=== PATIENT | male | born 1960 | race Caucasian/White ===

== ENCOUNTER → 2018-05-26 08:15 | Outpatient (CLI) | payer MEDICAID, SELFPAY ==
[2018-05-26 12:38] LABS: Absolute Lymphocyte Count 1.53 X10^3/ul (0.83-4.51); Absolute Neutrophil Count 5.3 X10^3/uL (2.0-7.7); Basophil# 0.02 X10^3/uL; Basophil% 0.3 % (0-1); Eosinophil# 0.17 X10^3/uL; Eosinophils% 2.2 % (0-5); Hematocrit 43.2 % (40-54); Hemoglobin 14.4 g/dl (13.0-16.5); Lymphocyte # 1.53 X10^3/ul (4.0); Lymphocyte % 20.1 % (19-41); Mean Corp Hgb Conc 33.3 g/gl (32-36); Mean Corpuscular Hgb 28.7 pg (27.0-32.0); Mean Corpuscular Volume 86.2 fL (80-94); Mean Platelet Vol. 11.1 fl (6.2-12.0); Monocyte# 0.57 X10^3/uL; Monocyte% 7.5 % (0-10); Neutrophil # 5.29 X10^3/uL (2.7-7.7); Neutrophil % 69.6 % (47-70); Platelet Count 195 K/mm3 (150-450); RBC Distribution Width CV 14.4 % (11.6-14.6); RBC Distribution Width SD 44.6 fl (35.1-43.9); Red Blood Count 5.01 M/mm3 (4.6-6.2); White Blood Count 7.6 K/mm3 (4.4-11.0)
[2018-05-26 12:40] LABS: POSITIVE COUNT NO; POSITIVE DIFFERENTIAL NO; POSITIVE MORPHOLOGY NO
[2018-05-26 13:17] LABS: ALB/GLOB Ratio 0.9 RATIO (0.9-2.4); AST(SGOT) 25 U/L (15-37); Alanine Aminotransfer ALT/SGPT 47 U/L (16-61); Albumin, Serum 3.7 g/dL (3.2-5.0); Alkaline Phosphatase 74 U/L (45-117); Anion Gap 9 (5-15); BUN 18 mg/dL (7-18); BUN/Creat Ratio 16.1 RATIO (10-20); Calcium,Total 8.5 mg/dL (8.5-10.1); Chloride 104 mmol/L (98-107); Cholesterol 182 mg/dL (200); Creatinine, Serum 1.12 mg/dL (0.70-1.30); EST Glomerular Filtration Rate 72 mL/min (>60); Est Glom Filt Rate - Afr Amer 87 mL/min (>60); Glucose 114 mg/dL (74-106); High Density Lipoprotein 31 mg/dL; Potassium 3.8 mmol/L (3.5-5.1); Protein, Total 7.7 g/dL (6.4-8.2); Sodium Level 139 mmol/L (136-145); Thyroid Stim Hormone (TSH) 2.58 uIU/mL (0.358-3.74); Triglycerides 190 mg/dL; Very Low Density Lipoprotein 38 mg/dL (5-40)
== END ==
PROVIDERS: Family Provider Family Medicine; PCP Family Medicine; Visit Provider Family Medicine
DX: I10 Essential (primary) hypertension (principal); I42.0 Dilated cardiomyopathy; E78.5 Hyperlipidemia, unspecified
CPT/HCPCS: 36415; 80053; 80061; 84443; 85025

== ENCOUNTER → 2019-02-21 | Outpatient (CLI) | payer MEDICAID, SELFPAY ==
[2019-02-21 15:17] VITALS: BMI 44.3
[2019-02-21 18:25] LABS: Anion Gap 7 (5-15); BUN 20 mg/dL (7-18); Calcium,Total 8.8 mg/dL (8.5-10.1); Chloride 105 mmol/L (98-107); Creatinine, Serum 1.05 mg/dL (0.70-1.30); EST Glomerular Filtration Rate 78 mL/min (>60); Est Glom Filt Rate - Afr Amer 94 mL/min (>60); Glucose 114 mg/dL (74-106); Potassium 3.1 mmol/L (3.5-5.1); Sodium Level 138 mmol/L (136-145)
== END | disposition home or self-care (01) ==
LOC: POLAB3 16:15
PROVIDERS: Family Provider Family Medicine; PCP Family Medicine; Visit Provider Physician Assistant Medical
DX: I50.22 Chronic systolic (congestive) heart failure (principal)
CPT/HCPCS: 36415; 80048

== ENCOUNTER → 2019-04-06 | Outpatient (CLI) | payer MEDICAID, SELFPAY ==
[2019-02-21 15:17] VITALS: BMI 44.3
[2019-04-06 13:12] LABS: Anion Gap 7 (5-15); BUN 17 mg/dL (7-18); BUN/Creat Ratio 14.4 RATIO (10-20); Calcium,Total 9.2 mg/dL (8.5-10.1); Chloride 107 mmol/L (98-107); Creatinine, Serum 1.18 mg/dL (0.70-1.30); EST Glomerular Filtration Rate 68 mL/min (>60); Est Glom Filt Rate - Afr Amer 82 mL/min (>60); Glucose 110 mg/dL (74-106); Potassium 4.3 mmol/L (3.5-5.1); Sodium Level 139 mmol/L (136-145)
== END | disposition home or self-care (01) ==
LOC: POLAB3 12:03
PROVIDERS: Physician Assistant Medical; Family Provider Family Medicine; PCP Family Medicine; Visit Provider Internal Medicine Cardiovascular Disease
DX: I42.8 Other cardiomyopathies (principal)
CPT/HCPCS: 36415; 80048

== ENCOUNTER 2020-07-08 13:39 | Emergency (ER) | payer MEDICAID, SELFPAY ==
[2019-11-29 14:34] VITALS: BMI 43.5
[2020-07-08 13:40] VITALS: BP 115/72; PULSE 74; RESP 19; TEMP 37.4; O2SAT 93; BMI 43.2
[2020-07-08 13:43] VITALS: BP 115/72; PULSE 74; RESP 19; TEMP 37.4; O2SAT 93
[2020-07-08 14:05] VITALS: BP 127/67; PULSE 69; RESP 20; O2SAT 92
--- NOTE | 2020-07-08 14:22 | EKG12_ITS ---
Test Reason : FEVER Blood Pressure : / mmHG Vent. Rate : 070 BPM Atrial Rate : 070 BPM P-R Int : 226 ms QRS Dur : 104 ms QT Int : 422 ms P-R-T Axes : 050 -24 -02 degrees QTc Int : 455 ms Sinus rhythm with 1st degree A-V block Low voltage QRS Inferior infarct , age undetermined Abnormal ECG Confirmed by IVETT DYSON, CINDI ([id number]), restaurant expeditor DALIA KIRKPATRICK ([id number]) on 07/11/2020 10:58:23 AM Referred By: ROJELIO Confirmed By:CINDI ROOT MD
--- NOTE | 2020-07-08 14:24 | ED.DCSUM_ITS ---
History of Present Illness Chief Complaint: Fever Informant: Patient Onset: Days - 6 days Context: Gradual Onset Current Severity: Moderate Maximum Severity: Moderate Narrative: Patient presents secondary to fever. He reports starting to not feel well 8 days ago. 6 days ago he developed fever and temperatures have been up to 103. He reports a mild cough with clear sputum. He reports poor appetite and decreased p.o. intake. Patient reports he does work with his daughter who is positive for Covid. Patient is noted to be on the heart transplant list. He denies chest pain and denies significant shortness of breath. - Past Medical History (1) Chronic systolic (congestive) heart failure Status: Chronic (2) Essential hypertension Status: Chronic (3) Nonischemic cardiomyopathy Status: Chronic (4) Obstructive sleep apnea Status: Chronic Past Medical History - Allergies and Home Meds Allergies/Adverse Reactions: Allergies naproxen Adverse Reaction (Severe, Verified 07/08/20 13:44) rectal bleeding codeine Adverse Reaction (Intermediate, Verified 07/08/20 13:44) Anxiety (wired) Primary Care Physician: Stu Richardson MD [Primary Care Provider] - Prior records reviewed: Yes Surgical History: herniorrhaphy, - Lives: Spouse/ Significant Other Smoking Status: Former smoker - Family History Maternal Family History: Family History (Last Reviewed 11/29/19 @ 15:[address] Robson Burgess MD) Father Heart disease Hypertension Bleeding disorder Mother Cancer Family History: Reports: No pertinent history Review of Systems General: Reports: Fever Eyes: Denies: Visual changes - bilaterally ENT: Denies: Bilateral ear pain Cardiovascular: Denies: Chest pain Respiratory: Reports: Cough, Sputum. Denies: Dyspnea Gastrointestinal: Reports: Vomiting - Vomited x1 today. Denies: Abdominal pain, Diarrhea Genitourinary: Denies: Dysuria Musculoskeletal: Denies: Swelling, Extremity Pain Skin: Denies: Rash Neurological: Denies: Headache Hematologic: Denies: Easy bruising, Easy bleeding Allergy: Denies: Uticaria Physical Exam Vital Signs/Narrative: Vital Signs Temp Pulse Resp BP Pulse Ox 07/08/20 14:05 69 20 H 127/67 H 92 07/08/20 13:43 99.4 F H 74 19 H 115/72 93 07/08/20 13:40 99.4 F H 74 19 H 115/72 93 Inital Vital Signs reviewed: Yes General: Well nourished, Well developed Head: Normocephalic ENT: Moist mucous membranes Neck: Supple Cardiovascular: Regular rate, Regular rhythm Respiratory: No distress, CTA bilaterally Abdomen: Soft, Nontender, Normal bowel sounds Extremities: Nontender Skin: Normal color Neurological: Alert, Oriented x3 Psychological: Normal affect Diagnostic/Tx/Re-eval Impressions Chest CTA 07/08/20 16:37 IMPRESSION: Mild patchy ground glass opacities in both lungs. COVID Pneumonia should be excluded. No evidence of pulmonary embolus. No evidence of thoracic aortic aneurysm or dissection. Fatty liver. Electronically Signed: Arvin Titus, at 17:29 EST Tel , Service support , 07/08/20 16:37 CTA Chest W/WO Contrast [CT] Stat Laboratory Results 07/08/20 07/08/20 07/08/20 13:44 13:44 13:44 WBC 4.2 L RBC 5.07 Hgb 14.4 Hct 42.8 MCV 84.4 MCH 28.4 MCHC 33.6 RDW Std Deviation 43.6 RDW Coeff of Kathy 14.3 Plt Count 141 L MPV 11.1 Immature Gran % (Auto) 0.200 Neut % (Auto) 75.2 H Lymph % (Auto) 13.4 L [place] % (Auto) 11.0 H Eos % (Auto) 0.0 Baso % (Auto) 0.2 Absolute Neuts (auto) 3.2 Absolute Lymphs (auto) 0.56 L Nucleated RBC % 0 Differential Comment SCANNED Diff Path Review May foll D-Dimer Quant (PE/DVT) 0.68 H* Sodium 134 L Potassium 3.7 Chloride 102 Carbon Dioxide 27.0 Anion Gap 5 BUN 15 Creatinine 1.22 Estim Creat Clear Calc 73.32 Est GFR (MDRD) Af Amer 79 Est GFR (MDRD) Non-Af 65 BUN/Creatinine Ratio 12.3 Glucose 169 H Lactic Acid Calcium 8.0 L Total Bilirubin 0.40 AST 33 ALT 49 Alkaline Phosphatase 62 Total Protein 7.7 Albumin 3.4 Globulin 4.3 H Albumin/Globulin Ratio 0.8 L COVID-19 (ANTHONY) 07/08/20 07/08/20 13:44 14:42 WBC RBC Hgb Hct MCV MCH MCHC RDW Std Deviation RDW Coeff of Kathy Plt Count MPV Immature Gran % (Auto) Neut % (Auto) Lymph % (Auto) [place] % (Auto) Eos % (Auto) Baso % (Auto) Absolute Neuts (auto) Absolute Lymphs (auto) Nucleated RBC % Differential Comment Diff Path Review D-Dimer Quant (PE/DVT) Sodium Potassium Chloride Carbon Dioxide Anion Gap BUN Creatinine Estim Creat Clear Calc Est GFR (MDRD) Af Amer Est GFR (MDRD) Non-Af BUN/Creatinine Ratio Glucose Lactic Acid 1.0 Calcium Total Bilirubin AST ALT Alkaline Phosphatase Total Protein Albumin Globulin Albumin/Globulin Ratio COVID-19 (ANTHONY) Positive - EKG Initial EKG Interpretation: Sinus Rhythm - Sinus at 70 with first-degree AV block. No acute ischemia. - Medical Decision Making Patient's vital signs been stable here. On review of vital signs from home his pulse ox is been ranging between 88 and 92%. I did discuss with him hospital admission for steroids and remdesivir. He would prefer to go home just with steroids. I am happy to send him home with home oxygen as well. He does have ability to check his vital signs including his pulse ox at home. He is given return instructions. ED Disposition - Plan for ED Patient: Disposition: Home or Assisted Living Diagnosis: COVID-19 Instructions: Coronavirus Disease 2019 (COVID-19) Prescriptions: Dexamethasone 6 mg PO DAILY #9 tab Transmission Status: Pending to [id number] Referrals: Stu Richardson MD [Primary Care Provider] - 1-2 Weeks
[2020-07-08 14:45] LABS: Absolute Lymphocyte Count 0.56 X10^3/uL (0.83-4.51); Absolute Neutrophil Count 3.2 X10^3/uL (2.0-7.7); Basophil# 0.01 X10^3/uL; Basophil% 0.2 % (0-1); Hematocrit 42.8 % (40-54); Hemoglobin 14.4 g/dL (13.0-16.5); Lymphocyte # 0.56 X10^3/ul (4.0); Lymphocyte % 13.4 % (19-41); Mean Corp Hgb Conc 33.6 g/dL (32-36); Mean Corpuscular Hgb 28.4 pg (27.0-32.0); Mean Corpuscular Volume 84.4 fL (80-94); Mean Platelet Vol. 11.1 fl (6.2-12.0); Monocyte# 0.46 X10^3/uL; NRBC Flagged by Analyzer 0 % (0-5); Neutrophil # 3.15 X10^3/uL (2.7-7.7); Neutrophil % 75.2 % (47-70); POSITIVE DIFFERENTIAL YES; Platelet Count 141 K/mm3 (150-450); RBC Distribution Width CV 14.3 % (11.6-14.6); RBC Distribution Width SD 43.6 fl (35.1-43.9); Red Blood Count 5.07 M/mm3 (4.6-6.2); White Blood Count 4.2 K/mm3 (4.4-11.0)
[2020-07-08 14:59] LABS: Differential Indicated SCAN CRITERIA MET
[2020-07-08 15:01] LABS: D-Dimer Quantitative (DVT/PE) 0.68 FEU/ug/m (0.27-0.49)
[2020-07-08 15:05] LABS: ALB/GLOB Ratio 0.8 RATIO (0.9-2.4); AST(SGOT) 33 U/L (15-37); Alanine Aminotransfer ALT/SGPT 49 U/L (16-61); Albumin, Serum 3.4 g/dL (3.2-5.0); Alkaline Phosphatase 62 U/L (45-117); Anion Gap 5 (5-15); BUN 15 mg/dL (7-18); BUN/Creat Ratio 12.3 RATIO (10-20); Chloride 102 mmol/L (98-107); Creatinine, Serum 1.22 mg/dL (0.70-1.30); EST Glomerular Filtration Rate 65 mL/min (>60); Est Glom Filt Rate - Afr Amer 79 mL/min (>60); Estimated Creatinine Clearance 73.32 ml/min; Globulin 4.3 g/dL (2.2-4.2); Glucose 169 mg/dL (74-106); Potassium 3.7 mmol/L (3.5-5.1); Protein, Total 7.7 g/dL (6.4-8.2); Sodium Level 134 mmol/L (136-145)
[2020-07-08 15:17] LABS: Differential Comment SCANNED
[2020-07-08 16:02] VITALS: BP 94/61; PULSE 69; RESP 22; O2SAT 91
--- NOTE | 2020-07-08 16:37 | CT_ITS ---
STUDY: CTA CHEST REASON FOR EXAM: Male, 59 years old. FEVER. PT HAS CHF HTN AND STATES HE NEEDS A HEART TRANSPLANT RADIATION DOSAGE (If Supplied By Facility): CTDIvol = ( 13.85 ) mGy, DLP = ( 536.69 ) mGycm TECHNIQUE: The examination was performed with the intravenous administration of IV 100mL Isovue-370. Post-processing of the angiographic images was performed, with multiplanar reformation and 3D reconstruction. Individualized dose optimization techniques were used for this CT. COMPARISON: 08/01/16 FINDINGS: There are mild patchy ground glass opacities noted in both lungs. There are no focal infiltrates. There are no pleural effusions. There is no pneumothorax. There is no evidence of pulmonary embolus. There is no evidence of thoracic aortic aneurysm or dissection. The heart and pericardium are within normal limits. There is no thoracic lymphadenopathy. Images through the upper abdomen demonstrate fatty infiltration of the liver. There are no destructive osseous lesions. CT/CTA Chest W/WO Contrast IMPRESSION: Mild patchy ground glass opacities in both lungs. COVID Pneumonia should be excluded. No evidence of pulmonary embolus. No evidence of thoracic aortic aneurysm or dissection. Fatty liver. Electronically Signed: Arvin Titus, at 17:29 EST Tel , Service support ,
[2020-07-08] MEDS: dexAMETHasone 10 MG/ML Vial 6 MG IV (18:42)
[2020-07-08 18:45] VITALS: BP 111/65; PULSE 71; RESP 22; O2SAT 96
--- NOTE | 2020-07-08 18:51 | CM.ED ---
Social Work Consult: Home O2 set-up. Informant: Dr. Lin Telephone call to patient. Introduced self and social work program coordinator role. Patient agreeable to speaking with this social work program coordinator. Patient confirms to have spoken with Dr. Lin about having home oxygen set up. Patient with [facility] insurance and agreeable to home oxygen being set up through [employer] [facility] [employer]. Patient educated on oxygen set up process. Patient with no further questions. Patient to call [employer] when patient arrives at home to have oxygen set up in the home. Patient voices understanding. Telephone call to [facility]. Referral made. Order faxed. Medical team updated. Sina Osborne MSW, ESTHER-S
[2020-07-08 19:08] VITALS: BP 105/64; PULSE 84; RESP 22; O2SAT 96
[2020-07-09 12:08] LABS: Pathologist Review Reviewed
--- NOTE | 2020-07-09 13:23 | CASEMGMT ---
YULIA NOGUERA ED COVID CALL ED Visit Date: 07/08/2020 ED Diagnosis: COVID 19 Disposition: Home with Oxygen through [facility] Intro role of CM to patient via phone. Patient states he is doing well and has not needed his oxygen today. He is checking his pulse ox 5x daily. YULIA NOGUERA reviewed symptoms to note including increased shortness of breath or hypoxia. Instructed patient if symptoms increase, or he begins to need more oxygen to let his PCP know. -pt states he is able to eat and drink without difficulty. -Pt has his medication (dexamethasone) and no questions re: administration. YULIA NOGUERA let patient know he would have a follow up call on Tuesday and he is agreeable to this. Pardeep RETANA RN ACM
--- NOTE | 2020-07-11 16:03 | CASEMGMT ---
[facility] ED COVID CALL ED Visit Date: 07/08/2020 ED Diagnosis: COVID 19 Disposition: Home with Oxygen through [facility] Call placed to pt/. Pt spoke w/YULIA NOGUERA briefly, stating, I'm good, I guess, when YULIA NOGUERA asked him how he was feeling, but then asked YULIA NOGUERA to talk with his . Per , pulse ox was down to 76% last night w/O2 @ 2 L/M via n/c and that they increased it to 3 L/M and pulse ox has been mostly b/w 88-89% w/O2 @ 3 L/M. She states her dtr-in-law, who works for Dr Richardson (pt's PCP), notified Dr Richardson last night re: increased in O2 needs. reports that pt is still not drinking well, is starting to have some disorientation/forgetfulness, is becoming unsteady on his feet, and has had increase in fatigue, and still w/occasional nausea. She states she was able to get him to take his medications today. She does report he has voided x 4 today. YULIA NOGUERA recommended to for pt to return to ER d/t increase in symptoms/increase in O2 needs. states has been concerned pt is getting dehydrated and was thinking today that he may need to back to the hospital. states pt is so weak she may not be able to get him to the car and states she may need to call the squad. YULIA NOGUERA advised , for pt and her safety, this may be best. voices appreciation for the follow-up call. La RETANA RN, CM
== END 2020-07-08 19:09 | disposition home or self-care (01) ==
PROVIDERS: Emergency Provider Emergency Medicine; PCP Family Medicine
DX: U07.1 COVID-19 (principal); I11.0 Hypertensive heart disease with heart failure; I50.22 Chronic systolic (congestive) heart failure
CPT/HCPCS: 71275; 80053; 83605; 85025; 85379; 87040; 87077; 87635; 93005; 96374; 99285; Q9967; A4216; U0002

== ENCOUNTER 2020-07-12 12:08 | Inpatient (IN) | payer MEDICAID, SELFPAY ==
[2020-07-12] VITALS (15 sets, daily range): BP systolic 101–145; BP diastolic 48–74; PULSE 74–88; RESP 18–32; TEMP 36.3–38.2; O2SAT 88–95; BMI 42.1; BMI 41.5
--- NOTE | 2020-07-12 12:20 | RAD_ITS ---
STUDY: X-RAY CHEST REASON FOR EXAM: Male, 59 years old. COUGH, SOB TECHNIQUE: AP COMPARISON: 05/02/2016, 07/08/2020 FINDINGS: EKG leads project over the chest. Lungs are underexpanded. Patchy pulmonary infiltrates involving the right more than left upper lobe have progressed since prior CTA chest 07/08/2020 There is no demonstrated pleural abnormality. Normal size heart. Normal mediastinum and zuleika. Normal visualized pulmonary arteries. Normal visualized aortic arch and descending thoracic aorta. Normal visualized thoracic spine. Normal visualized ribs, clavicles, and shoulders. There is no demonstrated abnormality of the visualized soft tissue structures of the upper abdomen. RAD/Chest 1 View (Portable) IMPRESSION: Increasing multilobar (upper lobe dominance) pulmonary infiltrate suggesting pneumonia, including viral causes. Electronically Signed: Samy Paiz MD ([place]) at 13:17 EST , Service support ,
--- NOTE | 2020-07-12 12:22 | ED.DCSUM_ITS ---
- ER Visit Summary Date of Service: 07/12/20 Chief Complaint: Cough and shortness of breath History of Present Illness: The patient is a [address] Stu Burgess. He reports he has a cough and shortness of breath began 4 days ago. He states that his daughter has Covid. He tested positive for Covid on July 08 by rapid antigen. Ports that his shortness of breath is increased over the past 2 days. Is much worse when he ambulates. He is currently on dexamethasone 2 L of home O2. Patient reports he has had a fever to 101 degrees. He actually reports his cough seems to be improving. Is productive of clear sputum. He complains of generalized weakness. He denies any other complaints. Physical Examination: Vitals: 97.4, 116/70, 74, 27, 95% on a nonrebreather, 93% on 4 L nasal cannula at rest. General: Well-nourished and well-developed. Head: Normocephalic atraumatic. Neck: Supple, no lymphadenopathy. No JVD. Nontender. Cardiovascular: Regular rate and rhythm. No murmurs. Respiratory: No respiratory distress. Clear to auscultation bilaterally. Abdominal: Soft, nontender, nondistended, normal bowel sounds. No guarding, rebound, or peritoneal signs. Back: Nontender. Extremities: Nontender, no edema. Skin: Normal color, no rash. Neurologic: Alert and oriented ?3. Cranial nerves II through XII are intact. Normal strength and sensation. Psych: Normal affect. Test Results: CBC shows segmented flows 86 and lymphocytes 7. Chem-7 shows a sodium 133, chloride 97, BUN 23, glucose 159, calcium of 8.4. D-dimer is 1.0. Fibrinogen is 789. CRP is 82.9. LDH is 39.8. Procalcitonin 0.13. Clinical Impression(s) from Imaging Studies Chest X-Ray 07/12/20 12:20 IMPRESSION: Increasing multilobar (upper lobe dominance) pulmonary infiltrate suggesting pneumonia, including viral causes. Electronically Signed: Samy Paiz MD ([place]) at 13:17 EST , Service support , Chest CTA 11/28/20 13:54 IMPRESSION: Patchy bilateral groundglass densities and and airspace disease likely multilevel pneumonia. Enlarged right hilar lymph node. No evidence for acute pulmonary embolism or aortic dissection. Electronically Signed: Nash Aguilar, at 14:27 EST Tel , Service support , Emergency Department Course and Treatment: Patient had an IV placed. His pulse ox is remained at 93% on 4 L. He is resting comfortably. Treatment Plan: Patient will be discussed with the hospitalist admitted for further evaluation and treatment. Disposition: Admitted in serious condition. Impression: 1. COVID-19 infection. 2. Hypoxia. This note was generated with [employer] dictation software. It may contain incorrect words, spelling, and punctuation that were not noted in review of the chart prior to signing ED Disposition - Plan for ED Patient: Referrals: Stu Richardson MD [Primary Care Provider] -
[2020-07-12 12:37] LABS: Absolute Lymphocyte Count 0.59 X10^3/uL (0.83-4.51); Absolute Neutrophil Count 7.4 X10^3/uL (2.0-7.7); Basophil# 0.01 X10^3/uL; Basophil% 0.1 % (0-1); Hematocrit 42.5 % (40-54); Hemoglobin 14.2 g/dL (13.0-16.5); Lymphocyte # 0.59 X10^3/ul (4.0); Lymphocyte % 6.9 % (19-41); Mean Corp Hgb Conc 33.4 g/dL (32-36); Mean Corpuscular Hgb 28.7 pg (27.0-32.0); Monocyte# 0.55 X10^3/uL; Monocyte% 6.4 % (0-10); NRBC Flagged by Analyzer 0 % (0-5); Neutrophil # 7.38 X10^3/uL (2.7-7.7); POSITIVE DIFFERENTIAL YES; Platelet Count 181 K/mm3 (150-450); RBC Distribution Width CV 14.3 % (11.6-14.6); RBC Distribution Width SD 44.6 fl (35.1-43.9); Red Blood Count 4.94 M/mm3 (4.6-6.2); White Blood Count 8.6 K/mm3 (4.4-11.0)
[2020-07-12 12:38] LABS: Differential Indicated SCAN CRITERIA MET
[2020-07-12 12:41] LABS: Fibrinogen 789 mg/dl (203-444)
[2020-07-12 12:59] LABS: ALB/GLOB Ratio 0.8 RATIO (0.9-2.4); AST(SGOT) 35 U/L (15-37); Alanine Aminotransfer ALT/SGPT 41 U/L (16-61); Albumin, Serum 3.3 g/dL (3.2-5.0); Alkaline Phosphatase 56 U/L (45-117); Anion Gap 10 (5-15); BUN 23 mg/dL (7-18); BUN/Creat Ratio 19.7 RATIO (10-20); CPK Total, Creatine Kinase 115 U/L (39-308); Calcium,Total 8.4 mg/dL (8.5-10.1); Chloride 97 mmol/L (98-107); Creatinine, Serum 1.17 mg/dL (0.70-1.30); EST Glomerular Filtration Rate 68 mL/min (>60); Est Glom Filt Rate - Afr Amer 83 mL/min (>60); Estimated Creatinine Clearance 76.46 ml/min; Glucose 159 mg/dL (74-106); LDH 398 U/L (87-241); Potassium 4.1 mmol/L (3.5-5.1); Protein, Total 7.3 g/dL (6.4-8.2); Sodium Level 133 mmol/L (136-145)
[2020-07-12 13:10] LABS: Procalcitonin 0.13 ng/mL (0.00-0.09)
[2020-07-12 13:24] LABS: Lactic Acid 1.4 mmol/L (0.4-1.9)
--- NOTE | 2020-07-12 13:54 | CT_ITS ---
STUDY: CTA CHEST REASON FOR EXAM: Male, 59 years old. +COVID ON TUESDAY. HAVING INCREASE SOB AND WEAKNESS. HX OF CHF AND HTN. PT STATES HE NEEDS A HEART TRANSPLANT RADIATION DOSAGE (If Supplied By Facility): CTDIvol = ( 15.04 ) mGy, DLP = ( 583.39 ) mGycm TECHNIQUE: The examination was performed with the intravenous administration of IV 100mL Isovue-370. Post-processing of the angiographic images was performed, with multiplanar reformation and 3D reconstruction. Individualized dose optimization techniques were used for this CT. COMPARISON: None. FINDINGS: Pulmonary artery and its branches demonstrate no evidence for filling defects to suggest acute pulmonary embolism. A few prominent caliber mediastinal lymph nodes seen. Prominent right hilar lymph node also seen. No pneumothorax or pleural effusion Upper abdominal structures demonstrate no acute abnormalities. No pericardial effusion. Hepatic steatosis. CT/CTA Chest W/WO Contrast IMPRESSION: Patchy bilateral groundglass densities and and airspace disease likely multilevel pneumonia. Enlarged right hilar lymph node. No evidence for acute pulmonary embolism or aortic dissection. Electronically Signed: Nash Aguilar, at 14:27 EST Tel , Service support ,
[2020-07-12] MEDS: Ondansetron 4 MG/2 ML Vial IV (13:58)
--- NOTE | 2020-07-12 14:51 | NURSING ---
DR MUSE FOR DR LEMON
--- NOTE | 2020-07-12 14:55 | NURSING ---
MS2 COVID PAINTSIL COVID 19, HYPOXIA
--- NOTE | 2020-07-12 14:57 | HP.PCM_ITS ---
Problem List (1) COVID-19 virus infection Status: Acute (2) Hypoxia Status: Acute (3) Nonischemic cardiomyopathy Status: Chronic (4) Chronic systolic (congestive) heart failure Status: Chronic (5) Essential hypertension Status: Chronic (6) Morbid obesity due to excess calories Status: Chronic (7) Obstructive sleep apnea Status: Chronic History of Present Illness Date of Admission: 07/12/20 Chief Complaint: Progressive shortness of breath -2 days The patient is a 59 year old M with past medical history of chronic systolic CHF, hypertension, morbid obesity, GONZALO on CPAP who comes in with progressive shortness of breath as started 2 weeks ago. His daughter also tested positive for Covid. He stated that 2 weeks ago, he felt generalized body aches, started having persistent fever. He started having shortness of breath and presented to the ED 06/16/20. Patient stated that he lost his sense of smell years ago. He cannot tell if his loss of sense of taste. At that time, his pulse ox was 88 to 92%. Chest x-ray showed groundglass opacities. Patient was offered to be admitted. He preferred to go home. He was sent home on dexamethasone and oxygen. In the emergency room, his vitals show temperature 97.4 F, heart rate of 74, respiratory rate was 27, blood pressure 116/70, SPO2 was 95% on 15 L of oxygen. His WBC count 8.6, hemoglobin 14.2, platelet count 181, fibrinogen 789, D-dimer 1.0, sodium 133, potassium 4.1, chloride 97, bicarbonate 26, BUN 20, creatinine 1.17, glucose 137, lactic acid 1.4, LDH 398, CRP 82.9, procalcitonin 0.13 Chest x-ray showed increasing multilobular pulmonary infiltrates. CTA of the chest showed patchy bilateral ground glass densities. Negative for acute PE Past Medical History Past Medical History (Chronic Problems): Chronic Problems (Last Reviewed 11/29/19 @ 15:[address] Robson Burgess MD) Nonischemic cardiomyopathy (Chronic) Chronic systolic (congestive) heart failure (Chronic) Essential hypertension (Chronic) Morbid obesity due to excess calories (Chronic) Obstructive sleep apnea (Chronic) Medical History: Medical History (Last Reviewed 11/29/19 @ 15:[address] Robson Burgess MD) Nonischemic cardiomyopathy (Chronic) I42.8 Chronic systolic (congestive) heart failure (Chronic) I50.22 Essential hypertension (Chronic) I10 Morbid obesity due to excess calories (Chronic) E66.01 Obstructive sleep apnea (Chronic) G47.33 GERD (gastroesophageal reflux disease) K21.9 Acute systolic heart failure (Resolved) I50.21 Dyspnea (Inactive) R06.00 Nonrheumatic mitral valve regurgitation (Inactive) I34.0 Nonrheumatic tricuspid valve regurgitation (Inactive) I36.1 Patent foramen ovale (Inactive) Q21.1 Allergies naproxen Adverse Reaction (Severe, Verified 07/12/20 12:16) rectal bleeding codeine Adverse Reaction (Intermediate, Verified 07/12/20 12:16) Anxiety (wired) Home Medications: Ambulatory Orders Medication Instructions Recorded Loratadine [Claritin] 10 mg PO DAILY 07/02/16 acetaminophen 500 mg tablet See Rx Instructions PO BID PRN tab 10/06/17 multivitamin 1 tab PO QDAY 10/07/17 fluticasone propionate 50 1 spray INTRANASAL BID PRN 11/29/19 mcg/actuation nasal spray,suspension lisinopril 5 mg tablet 5 mg PO QDAY #90 tab 11/29/19 metoprolol succinate 200 mg 200 mg PO DAILY #90 tab 11/29/19 tablet,extended release 24 hr omeprazole 20 mg capsule,delayed 20 mg PO DAILY #90 cap 11/29/19 release potassium chloride 20 mEq 20 meq PO BID #180 tab 11/29/19 tablet,extended release spironolactone 25 mg tablet 12.5 mg PO DAILY #45 tab 11/29/19 Dexamethasone 6 mg PO DAILY #9 tab 07/08/20 Furosemide [Lasix] 80 mg PO DAILY 07/08/20 Surgical History: Surgical History (Last Reviewed 11/29/19 @ 15:[address] Robson Burgess MD) History of right and left heart catheterization Onset Date: 05/05/16 Z98.890 History of right inguinal hernia repair Z98.890, Z87.19 Surgical History: herniorrhaphy, - - Status post right and left heart cath. Status post Left great toe distal phalange amputation Psychiatric History: No pertinent psych hx Lives: Spouse/ Significant Other Smoking Status: Former smoker Tobacco Use: Non-smoker Alcohol: None Drugs: None - *Family History Maternal Family History: Family History (Last Reviewed 11/29/19 @ 15:[address] Robson Burgess MD) Father Heart disease Hypertension Bleeding disorder Mother Cancer History Items: Cancer - Lung Paternal Family History: Family History (Last Reviewed 11/29/19 @ 15:[address] Robson Burgess MD) Father Heart disease Hypertension Bleeding disorder Mother Cancer History Items: Heart Disease Review of Systems Constitutional: Reports: Anorexia, Night Sweats, Malaise, Fatigue. Denies: Chills, Fever, Weight Change Eyes: Denies: Blurred vision, Cataracts, Conjunctivae Inflammation, Pain, Redness HEENT: Denies: Difficulty Hearing, Difficulty Swallowing, Head Aches, Hearing Changes, Sinus Congestion, Sinus Drainage Cardiovascular: Denies: Chest Pain, Claudication, Orthopnea, Palpitations Respiratory: Reports: Cough, Shortness of Breath, Shortness of breath at rest, Shortness of breath upon exertion, Sputum production Gastrointestinal: Denies: Abdominal Pain, Hematemesis, Hematochezia, Nausea, Vomiting Genitourinary: Denies: Dysuria, Frequency, Incontinence, Nocturia Musculoskeletal: Denies: Joint Pain, Joint stiffness, Joint swelling, Joint Tenderness Skin: Denies: Pruritis, Rash, Wounds Neurological: Denies: Difficulty swallowing, Focal weakness, Numbness, Tingling Psychiatric: Denies: Anxiety, Depression, Homicidal Ideations, Suicidal Ideations Hematologic/ Lymphatic: Denies: Easy Bruising, Easy Bleeding VTE Information - Inpt Only VTE Present on Admission: No VTE Pharm Prophylaxis ordered?: Yes Patient Problems: Active and Suspected Problems (Last Reviewed 11/29/19 @ 15:[address] Robson Burgess MD) COVID-19 virus infection (Acute) Hypoxia (Acute) - Physical Exam Vitals/I&O's: Vital Signs Temp Pulse Resp BP Pulse Ox 98.4 F 78 29 H 101/48 L 95 07/12/20 14:00 07/12/20 14:00 07/12/20 14:00 07/12/20 14:00 07/12/20 14:00 Oxygen Flow Rate (L/min) 4 Oxygen Delivery Method Nasal Cannula Weight: 140.9 kg Body Mass Index (BMI) 42.1 General: Alert, Oriented x3, Cooperative, - - Appears unwell, on 4 L of oxygen HEENT: Atraumatic, PERRLA, EOMI, Normocephalic Oral: Dry Mucosa Neck: Supple Lungs: Diminished Cardiovascular: Regular rate, Regular Rhythm, Normal S1, Normal S2, No murmurs Abdomen: Bowel Sounds Present, Soft, Non Tender, Non-Distended, No Hepato- splenomegaly Extremities: No edema, - - Left great toe distal phalange stump Skin: No rashes Musculoskeletal: No Tenderness to Palpation of Joints or Extremities Lymphatic: No Cervical, Supraclavicular, or Inguinal Adenopathy Neurological: Cranial nerves II-XII grossly intact, Neuro grossly intact Psych/Mental Status: Normal Affect, Appropriate Laboratory Results 07/12/20 12:15: WBC 8.6, RBC 4.94, Hgb 14.2, Hct 42.5, MCV 86.0, MCH 28.7, MCHC 33.4, RDW Std Deviation 44.6 H, RDW Coeff of Kathy 14.3, Plt Count 181, MPV 11.0, Immature Gran % (Auto) 0.600, Neut % (Auto) 86.0 H, Lymph % (Auto) 6.9 L, [place] % (Auto) 6.4, Eos % (Auto) 0.0, Baso % (Auto) 0.1, Absolute Neuts (auto) 7.4, Absolute Lymphs (auto) 0.59 L, Nucleated RBC % 0 07/12/20 12:15: Fibrinogen 789 H, D-Dimer Quant (PE/DVT) 1.00 H* 07/12/20 12:15: Sodium 133 L, Potassium 4.1, Chloride 97 L, Carbon Dioxide 26.0, Anion Gap 10, BUN 23 H, Creatinine 1.17, Estim Creat Clear Calc 76.46, Est GFR (MDRD) Af Amer 83, Est GFR (MDRD) Non-Af 68, BUN/Creatinine Ratio 19.7, Glucose 159 H, Calcium 8.4 L, Total Bilirubin 0.60, AST 35, ALT 41, Alkaline Phosphatase 56, Lactate Dehydrogenase 398 H, Total Creatine Kinase 115, C-React Prot Ext Range 82.90 H, Total Protein 7.3, Albumin 3.3, Globulin 4.0, Albumin/Globulin Ratio 0.8 L 07/12/20 12:15: Procalcitonin 0.13 H 07/12/20 12:35: Lactic Acid 1.4 Assessment/Plan All Active Problems (Last Reviewed 11/29/19 @ 15:[address] Robsno Burgess MD) COVID-19 virus infection (Acute) Hypoxia (Acute) Acute systolic heart failure (Resolved) 1. Acute hypoxic respiratory sufficient secondary to acute COVID-19 pneumonia Currently is on 7 L of oxygen. Continue with breathing treatments, PO steroids, encourage use of incentive spirometer. Wean off oxygen for SPO2 more than 94% 2. Acute COVID-19 pneumonia with hypoxia Elevated D-dimer and COVID-19 Continue on dexamethasone, start remdesivir Pulmonology consult 3. GONZAOL on CPAP 4. CKD stage III, creatinine at baseline, repeat blood work in a.m. 5. Hypertension, controlled, would hold lisinopril for now, continue metoprolol 6. Chronic systolic CHF/ischemic cardiomyopathy, EF 35-40% (2019) Will hold lasix and lisinopril Will continue to monitor. 7. Morbid obesity, BMI 41.5, modification recommended 8. DVT PPx- Lovenox SC BID Inpatient E&M: 56542 Init Hosp L3
[2020-07-12] MEDS: dexAMETHasone 10 MG/ML Vial 6 MG IV (15:15)
[2020-07-12] MEDS: 0.9% Normal Saline 1,000 ML 50 ML IV (18:45)
[2020-07-12] MEDS: Ipratropium/Albuterol Sulfate 3 ML AMPUL.NEB INHALATION (19:32)
[2020-07-12] MEDS: Enoxaparin 40 MG/0.4 ML Syringe SC (20:32)
--- NOTE | 2020-07-12 22:08 | CPS ---
pt placed on Home bipap Unit with 12 lpm O2 bleed in
[2020-07-12] MEDS: Acetaminophen 325 MG Tablet 650 MG PO (22:46)
[2020-07-13] VITALS (24 sets, daily range): BP systolic 99–142; BP diastolic 43–79; PULSE 50–92; RESP 12–28; TEMP 36.1–37.8; O2SAT 88–97
[2020-07-13 06:55] LABS: Absolute Lymphocyte Count 0.63 X10^3/uL (0.83-4.51); Absolute Neutrophil Count 6.3 X10^3/uL (2.0-7.7); Basophil# 0.01 X10^3/uL; Basophil% 0.1 % (0-1); Hematocrit 39.7 % (40-54); Lymphocyte # 0.63 X10^3/ul (4.0); Lymphocyte % 8.7 % (19-41); Mean Corp Hgb Conc 32.7 g/dL (32-36); Mean Corpuscular Hgb 27.6 pg (27.0-32.0); Mean Corpuscular Volume 84.3 fL (80-94); Mean Platelet Vol. 10.3 fl (6.2-12.0); Monocyte% 4.1 % (0-10); NRBC Flagged by Analyzer 0 % (0-5); Neutrophil # 6.26 X10^3/uL (2.7-7.7); Neutrophil % 86.7 % (47-70); Platelet Count 184 K/mm3 (150-450); RBC Distribution Width CV 14.1 % (11.6-14.6); RBC Distribution Width SD 43.5 fl (35.1-43.9); Red Blood Count 4.71 M/mm3 (4.6-6.2); White Blood Count 7.2 K/mm3 (4.4-11.0)
[2020-07-13 07:19] LABS: ALB/GLOB Ratio 0.6 RATIO (0.9-2.4); AST(SGOT) 34 U/L (15-37); Alanine Aminotransfer ALT/SGPT 34 U/L (16-61); Albumin, Serum 2.7 g/dL (3.2-5.0); Alkaline Phosphatase 49 U/L (45-117); Anion Gap 6 (5-15); BUN 16 mg/dL (7-18); BUN/Creat Ratio 17.2 RATIO (10-20); Calcium,Total 8.5 mg/dL (8.5-10.1); Chloride 100 mmol/L (98-107); Creatinine, Serum 0.93 mg/dL (0.70-1.30); EST Glomerular Filtration Rate 89 mL/min (>60); Est Glom Filt Rate - Afr Amer 107 mL/min (>60); Estimated Creatinine Clearance 96.19 ml/min; Globulin 4.6 g/dL (2.2-4.2); Glucose 134 mg/dL (74-106); Protein, Total 7.3 g/dL (6.4-8.2); Sodium Level 132 mmol/L (136-145)
[2020-07-13] MEDS: Ipratropium/Albuterol Sulfate 3 ML AMPUL.NEB INHALATION ×4 (07:31→20:20)
--- NOTE | 2020-07-13 07:35 | PCM.PN.HOSP ---
Patient Problems: Active and Suspected Problems (Last Reviewed 11/29/19 @ 15:[address] Robson Burgess MD) COVID-19 virus infection (Acute) Hypoxia (Acute) Reason for Visit: Follow-up on hypoxia/Acute COVID-19 pneumonia Subjective: Patient was seen and examined. Denies any chest pain, fever or chills. His respiratory status has gone worse, on increased amounts of oxygen. Objective: Physical exam: General: Alert, Oriented x3, Cooperative, - - Appears unwell, on Bipap HEENT: Atraumatic, PERRLA, EOMI, Normocephalic Oral: Dry Mucosa Neck: Supple Lungs: Diminished Cardiovascular: Regular rate, Regular Rhythm, Normal S1, Normal S2, No murmurs Abdomen: Bowel Sounds Present, Soft, Non Tender, Non-Distended, No Hepato-splenomegaly Extremities: No edema, - - Left great toe distal phalange stump Skin: No rashes Musculoskeletal: No Tenderness to Palpation of Joints or Extremities Lymphatic: No Cervical, Supraclavicular, or Inguinal Adenopathy Neurological: Cranial nerves II-XII grossly intact, Neuro grossly intact Psych/Mental Status: Normal Affect, Appropriate Vitals/I&O's: Vital Signs Temp Pulse Resp BP Pulse Ox 100.0 F H 72 20 H 142/66 H 95 07/13/20 03:18 07/13/20 03:18 07/13/20 03:18 07/13/20 03:18 07/13/20 03:18 Oxygen Flow Rate (L/min) 12 Oxygen Delivery Method CPAP Weight: 138.6 kg Body Mass Index (BMI) 41.5 Intake and Output for Last 24 Hours 07/11/20 07/12/20 07/13/20 23:59 23:59 23:59 Intake Total 850 / 850 Output Total 800 / 800 Balance 850 / 450 -800 / -800 Laboratory Results 07/12/20 12:15: WBC 8.6, RBC 4.94, Hgb 14.2, Hct 42.5, MCV 86.0, MCH 28.7, MCHC 33.4, RDW Std Deviation 44.6 H, RDW Coeff of Kathy 14.3, Plt Count 181, MPV 11.0, Immature Gran % (Auto) 0.600, Neut % (Auto) 86.0 H, Lymph % (Auto) 6.9 L, [place] % (Auto) 6.4, Eos % (Auto) 0.0, Baso % (Auto) 0.1, Absolute Neuts (auto) 7.4, Absolute Lymphs (auto) 0.59 L, Nucleated RBC % 0 07/12/20 12:15: Fibrinogen 789 H, D-Dimer Quant (PE/DVT) 1.00 H* 07/12/20 12:15: Sodium 133 L, Potassium 4.1, Chloride 97 L, Carbon Dioxide 26.0, Anion Gap 10, BUN 23 H, Creatinine 1.17, Estim Creat Clear Calc 76.46, Est GFR (MDRD) Af Amer 83, Est GFR (MDRD) Non-Af 68, BUN/Creatinine Ratio 19.7, Glucose 159 H, Calcium 8.4 L, Total Bilirubin 0.60, AST 35, ALT 41, Alkaline Phosphatase 56, Lactate Dehydrogenase 398 H, Total Creatine Kinase 115, C-React Prot Ext Range 82.90 H, Total Protein 7.3, Albumin 3.3, Globulin 4.0, Albumin/Globulin Ratio 0.8 L 07/12/20 12:15: Procalcitonin 0.13 H 07/12/20 12:35: Lactic Acid 1.4 07/13/20 06:28: WBC 7.2, RBC 4.71, Hgb 13.0, Hct 39.7 L, MCV 84.3, MCH 27.6, MCHC 32.7, RDW Std Deviation 43.5, RDW Coeff of Kathy 14.1, Plt Count 184, MPV 10.3, Immature Gran % (Auto) 0.400, Neut % (Auto) 86.7 H, Lymph % (Auto) 8.7 L, [place] % (Auto) 4.1, Eos % (Auto) 0.0, Baso % (Auto) 0.1, Absolute Neuts (auto) 6.3, Absolute Lymphs (auto) 0.63 L, Nucleated RBC % 0 07/13/20 06:28: Sodium 132 L, Potassium 4.0, Chloride 100, Carbon Dioxide 26.0, Anion Gap 6, BUN 16, Creatinine 0.93, Estim Creat Clear Calc 96.19, Est GFR (MDRD) Af Amer 107, Est GFR (MDRD) Non-Af 89, BUN/Creatinine Ratio 17.2, Glucose 134 H, Calcium 8.5, Total Bilirubin 0.60, AST 34, ALT 34, Alkaline Phosphatase 49, Total Protein 7.3, Albumin 2.7 L, Globulin 4.6 H, Albumin/Globulin Ratio 0.6 L Current Medications Acetaminophen (Acetaminophen 325 Mg Tablet) 650 mg PO Q6H PRN PRN PRN Reason: Pain Score 1-10/Temp > 100.7 F Last Admin: 07/12/20 22:46 Dose: 650 mg Documented by: Al Hydroxide/Mg Hydroxide (Mag Hydrox/Al Hydrox/Simeth 30 Ml Udc) 30 ml PO Q6H PRN PRN PRN Reason: Gastric Burning Albuterol Sulfate (Albuterol 2.5 Mg/3 Ml Vial.Neb.) 2.5 mg INHALATION Q2H PRN PRN PRN Reason: Shortness of Breath/Wheezing Albuterol/Ipratropium (Ipratropium/Albuterol Sulfate 3 Ml Ampul.Neb) 3 ml INHALATION Q4HWA.RT [facility] Last Admin: 07/13/20 07:31 Dose: 3 ml Documented by: Dexamethasone (Dexamethasone 4 Mg Tablet) 6 mg PO DAILY [facility] Enoxaparin Sodium (Enoxaparin 40 Mg/0.4 Ml Syringe) 40 mg SC BID [facility] Last Admin: 07/12/20 20:32 Dose: 40 mg Documented by: Remdesivir 100 mg/ Sodium (Chloride) 250 mls @ 125 mls/hr IV DAILY [facility] Stop: 07/16/20 11:59 Sodium Chloride () 1,000 mls @ 50 mls/hr IV .Q20H [facility] Last Admin: 07/12/20 18:45 Dose: 50 mls/hr Documented by: Influenza Virus Vaccine Quadrival (Influenza Vaccine (6mos+)/Pf 0.5 Ml Syringe) 0.5 ml IM .ONCE ONE Stop: 07/13/20 10:01 Loratadine (Loratadine 10 Mg Tablet) 10 mg PO DAILY [facility] Metoprolol Succinate (Metoprolol(Xl)Succ 200 Mg Tablet) 200 mg PO DAILY [facility] Multivitamins (Multivitamins,Therapeutic Tablet) 1 tablet PO DAILY [facility] Ondansetron HCl (Ondansetron 4 Mg/2 Ml Vial) 4 mg IV Q8H PRN PRN PRN Reason: NAUSEA/VOMITING Pantoprazole Sodium (Pantoprazole Sodium 20 Mg Tablet) 20 mg PO DAILY [facility] Potassium Chloride (Potassium Chloride 20 Meq Tablet) 20 meq PO BID@1000,1700 [facility] Last Admin: 07/12/20 17:12 Dose: 20 meq Documented by: Psyllium Hydrophilic Mucilloid (Psyllium 1 Packet) 1 packet PO DAILY PRN PRN PRN Reason: Constipation Senna/Docusate Sodium (Senna/Docusate Sodium 1 Tablet) 2 tablet PO BID PRN PRN PRN Reason: Constipation Sodium Chloride (0.9% Saline Lock 10 Ml Syringe) 10 - 40 ml IV UD PRN PRN Reason: SALINE FLUSH Medical Necessity - Tobacco Use Smoking Status: Former smoker Tobacco Use: Non-smoker Assessment/Plan All Active Problems (Last Reviewed 11/29/19 @ 15:[address] Robson Burgess MD) COVID-19 virus infection (Acute) Hypoxia (Acute) Acute systolic heart failure (Resolved) 1. Acute hypoxic respiratory sufficient secondary to acute COVID-19 pneumonia Currently on Bipap. Continue with breathing treatments, PO steroids, encourage use of incentive spirometer. Wean off oxygen for SPO2 more than 94% 2. Acute COVID-19 pneumonia with hypoxia Elevated D-dimer and COVID-19 Continue on dexamethasone, start remdesivir Pulmonology consulted 3. GONZALO on CPAP 4. CKD stage III, creatinine at baseline, repeat blood work in a.m. 5. Hypertension, controlled, would hold lisinopril for now, continue metoprolol 6. Chronic systolic CHF/ischemic cardiomyopathy, EF 35-40% (2019) Will hold lasix and lisinopril Will continue to monitor. 7. Morbid obesity, BMI 41.5, lifestyle modification recommended 8. DVT PPx- Lovenox SC BID Inpatient E&M: [id number] [facility] Hosp L3
[2020-07-13] MEDS: Multivitamins,Therapeutic Tablet 1 TABLET PO (10:20)
[2020-07-13] MEDS: Pantoprazole Sodium 20 MG Tablet PO (10:20)
[2020-07-13] MEDS: dexAMETHasone 4 MG Tablet 6 MG PO (10:20)
[2020-07-13] MEDS: Loratadine 10 MG Tablet PO (10:20)
[2020-07-13] MEDS: Metoprolol(XL)Succ 200 MG Tablet PO (10:20)
[2020-07-13] MEDS: Enoxaparin 40 MG/0.4 ML Syringe SC ×2 (10:20→20:01)
--- NOTE | 2020-07-13 10:42 | NURSING ---
RT placed patient on Airvo at 60L 75% fi02. Patient's pulse ox 93%. Continuous pulse ox placed as a nursing measure to monitor remotely.
--- NOTE | 2020-07-13 11:34 | PCM.CONS.PUL ---
Problem List (1) COVID-19 virus infection Status: Acute (2) Hypoxia Status: Acute (3) Nonischemic cardiomyopathy Status: Chronic (4) Chronic systolic (congestive) heart failure Status: Chronic (5) Essential hypertension Status: Chronic (6) Morbid obesity due to excess calories Status: Chronic (7) Obstructive sleep apnea Status: Chronic Reason for Consult Date of Consultation: 07/13/20 Reason for Consultation: Hypoxic respiratory failure History of Present Illness: The patient is a 59 year old M, with past medical history listed below, who presented [facility] on 07/04/2020 secondary to a 2-week history of cough and shortness of breath. Patient states his symptoms initially started with fever and GI complaints 2 weeks ago. 4 days ago, patient developed cough and shortness of breath. Patient was tested on July 08 and found to be positive. Patient does state that his daughter recently tested positive. On presentation, patient was noted to be 93% on 4 L nasal cannula at rest. Laboratory work-up was relatively unremarkable except for an elevated CRP at 83 and pro calcitonin of 0.13. Renal function was within normal limits. Chest x-ray had shown increasing upper lobe infiltrates and this was confirmed with a CTA of the chest showing enlarged lymphadenopathy and bilateral groundglass opacities. Patient was admitted to the floor for further evaluation. Patient has been initiated on remdesivir and dexamethasone. On my arrival, patient was being transitioned to Airvo secondary to hypoxia on high flow nasal cannula. Patient was reporting cough and generalized body aches. Patient also reported mild chest pain. This was not associated with diaphoresis or radiation. No hemoptysis have been reported. Patient does report a [id number] smoking history, but is never been seen by diving judge or use an inhaler. Patient does follow with Dr. Burgess for congestive heart failure, but believes she was well controlled prior to onset of this acute illness. Patient is not reporting significant lower extremity edema. Patient does not recall conversation about convalescent serum. Review of systems otherwise negative from a constitutional, HEENT, respiratory, cardiovascular, GI, genitourinary, musculoskeletal, skin, neurologic, psychiatric and hematologic system unless stated above. Past Medical History Past Medical History (Chronic Problems): Chronic Problems (Last Reviewed 11/29/19 @ 15:[address] Robson Burgess MD) Nonischemic cardiomyopathy (Chronic) Chronic systolic (congestive) heart failure (Chronic) Essential hypertension (Chronic) Morbid obesity due to excess calories (Chronic) Obstructive sleep apnea (Chronic) Medical History: Medical History (Last Reviewed 11/29/19 @ 15:[address] Robson Burgess MD) Nonischemic cardiomyopathy (Chronic) I42.8 Chronic systolic (congestive) heart failure (Chronic) I50.22 Essential hypertension (Chronic) I10 Morbid obesity due to excess calories (Chronic) E66.01 Obstructive sleep apnea (Chronic) G47.33 GERD (gastroesophageal reflux disease) K21.9 Acute systolic heart failure (Resolved) I50.21 Dyspnea (Inactive) R06.00 Nonrheumatic mitral valve regurgitation (Inactive) I34.0 Nonrheumatic tricuspid valve regurgitation (Inactive) I36.1 Patent foramen ovale (Inactive) Q21.1 Allergies naproxen Adverse Reaction (Severe, Verified 07/12/20 12:16) rectal bleeding codeine Adverse Reaction (Intermediate, Verified 07/12/20 12:16) Anxiety (wired) Home Medications: Ambulatory Orders Medication Instructions Recorded Loratadine [Claritin] 10 mg PO DAILY 07/02/16 acetaminophen 500 mg tablet See Rx Instructions PO BID PRN tab 10/06/17 multivitamin 1 tab PO QDAY 10/07/17 fluticasone propionate 50 1 spray INTRANASAL BID PRN 11/29/19 mcg/actuation nasal spray,suspension lisinopril 5 mg tablet 5 mg PO QDAY #90 tab 11/29/19 metoprolol succinate 200 mg 200 mg PO DAILY #90 tab 11/29/19 tablet,extended release 24 hr omeprazole 20 mg capsule,delayed 20 mg PO DAILY #90 cap 11/29/19 release potassium chloride 20 mEq 20 meq PO BID #180 tab 11/29/19 tablet,extended release spironolactone 25 mg tablet 12.5 mg PO DAILY #45 tab 11/29/19 Dexamethasone 6 mg PO DAILY #9 tab 07/08/20 Furosemide [Lasix] 80 mg PO DAILY 07/08/20 Surgical History: Surgical History (Last Reviewed 11/29/19 @ 15:[address] Robson Burgess MD) History of right and left heart catheterization Onset Date: 05/05/16 Z98.890 History of right inguinal hernia repair Z98.890, Z87.19 Surgical History: herniorrhaphy, - - Status post right and left heart cath. Status post Left great toe distal phalange amputation Psychiatric History: No pertinent psych hx Lives: Spouse/ Significant Other Smoking Status: Former smoker Tobacco Use: Non-smoker Alcohol: None Drugs: None - *Family History Maternal Family History: Family History (Last Reviewed 11/29/19 @ 15:[address] Robson Burgess MD) Father Heart disease Hypertension Bleeding disorder Mother Cancer History Items: Cancer - Lung Paternal Family History: Family History (Last Reviewed 11/29/19 @ 15:[address] Robson Burgess MD) Father Heart disease Hypertension Bleeding disorder Mother Cancer History Items: Heart Disease Review of Systems Comment: See HPI Patient Problems: Active and Suspected Problems (Last Reviewed 11/29/19 @ 15:[address] Robson Burgess MD) COVID-19 virus infection (Acute) Hypoxia (Acute) Objective: All imaging was personally reviewed. Agree with formal interpretation. Patient has been seen by me as an outpatient and is being treated for GONZALO with BiPAP 14/10 centimeters of water Last echocardiogram was completed in December 2018 showing an EF of 35 to 40% with no mention of pulmonary hypertension. - Physical Exam Vitals/I&O's: Vital Signs Temp Pulse Resp BP Pulse Ox 36.7 C 92 18 128/68 H 88 07/13/20 10:11 07/13/20 10:20 07/13/20 10:11 07/13/20 10:11 07/13/20 10:11 Oxygen Flow Rate (L/min) 14 Oxygen Delivery Method Nasal Cannula Weight: 138.6 kg Body Mass Index (BMI) 41.5 Intake and Output for Last 24 Hours 07/11/20 07/12/20 07/13/20 23:59 23:59 23:59 Intake Total 850 / 850 779.17 / 779.17 Output Total 800 / 800 Balance 850 / 450 -20.83 / -20.83 General: Alert, Oriented x3, Cooperative, No apparent distress, Well developed, Well nourished, - - Morbidly obese. Speaking in full sentences. HEENT: Atraumatic, PERRLA, EOMI, Normocephalic, - - Symmetric expansion. Oral: Moist Mucosa, No Gingival or Mucosal Lesions/ Ulcerations Neck: Supple, No JVD, No Nodes, Trachea Midline Lungs: No rhonchi, No wheeze, No rales, Diminished, - - symmetric expansion. No dullness to percussion Cardiovascular: Regular rate, Regular Rhythm, Normal S1, Normal S2, No murmurs, No rub noted, No Gallop Abdomen: Bowel Sounds Present, Soft, Non Tender, Non-Distended, Obese Extremities: No clubbing, No cyanosis, Edema - Trace lower extremity Skin: No rashes, No breakdown Musculoskeletal: No Tenderness to Palpation of Joints or Extremities Lymphatic: No Cervical, Supraclavicular, or Inguinal Adenopathy Neurological: Cranial nerves II-XII grossly intact, Neuro grossly intact, Motor Exam 5/5 strength throughout Psych/Mental Status: Alert and oriented to time, place, person, mood and affect Laboratory Results 07/12/20 12:15: WBC 8.6, RBC 4.94, Hgb 14.2, Hct 42.5, MCV 86.0, MCH 28.7, MCHC 33.4, RDW Std Deviation 44.6 H, RDW Coeff of Kathy 14.3, Plt Count 181, MPV 11.0, Immature Gran % (Auto) 0.600, Neut % (Auto) 86.0 H, Lymph % (Auto) 6.9 L, Leon % (Auto) 6.4, Eos % (Auto) 0.0, Baso % (Auto) 0.1, Absolute Neuts (auto) 7.4, Absolute Lymphs (auto) 0.59 L, Nucleated RBC % 0 07/12/20 12:15: Fibrinogen 789 H, D-Dimer Quant (PE/DVT) 1.00 H* 07/12/20 12:15: Sodium 133 L, Potassium 4.1, Chloride 97 L, Carbon Dioxide 26.0, Anion Gap 10, BUN 23 H, Creatinine 1.17, Estim Creat Clear Calc 76.46, Est GFR (MDRD) Af Amer 83, Est GFR (MDRD) Non-Af 68, BUN/Creatinine Ratio 19.7, Glucose 159 H, Calcium 8.4 L, Total Bilirubin 0.60, AST 35, ALT 41, Alkaline Phosphatase 56, Lactate Dehydrogenase 398 H, Total Creatine Kinase 115, C-React Prot Ext Range 82.90 H, Total Protein 7.3, Albumin 3.3, Globulin 4.0, Albumin/Globulin Ratio 0.8 L 07/12/20 12:15: Procalcitonin 0.13 H 07/12/20 12:35: Lactic Acid 1.4 07/13/20 06:28: WBC 7.2, RBC 4.71, Hgb 13.0, Hct 39.7 L, MCV 84.3, MCH 27.6, MCHC 32.7, RDW Std Deviation 43.5, RDW Coeff of Kathy 14.1, Plt Count 184, MPV 10.3, Immature Gran % (Auto) 0.400, Neut % (Auto) 86.7 H, Lymph % (Auto) 8.7 L, Leon % (Auto) 4.1, Eos % (Auto) 0.0, Baso % (Auto) 0.1, Absolute Neuts (auto) 6.3, Absolute Lymphs (auto) 0.63 L, Nucleated RBC % 0 07/13/20 06:28: Sodium 132 L, Potassium 4.0, Chloride 100, Carbon Dioxide 26.0, Anion Gap 6, BUN 16, Creatinine 0.93, Estim Creat Clear Calc 96.19, Est GFR (MDRD) Af Amer 107, Est GFR (MDRD) Non-Af 89, BUN/Creatinine Ratio 17.2, Glucose 134 H, Calcium 8.5, Total Bilirubin 0.60, AST 34, ALT 34, Alkaline Phosphatase 49, Total Protein 7.3, Albumin 2.7 L, Globulin 4.6 H, Albumin/Globulin Ratio 0.6 L Current Medications Acetaminophen (Acetaminophen 325 Mg Tablet) 650 mg PO Q6H PRN PRN PRN Reason: Pain Score 1-10/Temp > 100.7 F Last Admin: 07/12/20 22:46 Dose: 650 mg Documented by: Al Hydroxide/Mg Hydroxide (Mag Hydrox/Al Hydrox/Simeth 30 Ml Udc) 30 ml PO Q6H PRN PRN PRN Reason: Gastric Burning Albuterol Sulfate (Albuterol 2.5 Mg/3 Ml Vial.Neb.) 2.5 mg INHALATION Q2H PRN PRN PRN Reason: Shortness of Breath/Wheezing Albuterol/Ipratropium (Ipratropium/Albuterol Sulfate 3 Ml Ampul.Neb) 3 ml INHALATION Q4HWA.RT [facility] Last Admin: 07/13/20 10:48 Dose: 3 ml Documented by: Dexamethasone (Dexamethasone 4 Mg Tablet) 6 mg PO DAILY [facility] Last Admin: 07/13/20 10:20 Dose: 6 mg Documented by: Enoxaparin Sodium (Enoxaparin 40 Mg/0.4 Ml Syringe) 40 mg SC BID [facility] Last Admin: 07/13/20 10:20 Dose: 40 mg Documented by: Remdesivir 100 mg/ Sodium (Chloride) 250 mls @ 125 mls/hr IV DAILY [facility] Stop: 07/16/20 11:59 Last Admin: 07/13/20 10:20 Dose: 125 mls/hr Documented by: Sodium Chloride () 1,000 mls @ 50 mls/hr IV .Q20H [facility] Last Infusion: 07/13/20 10:20 Dose: 0 mls/hr Documented by: Loratadine (Loratadine 10 Mg Tablet) 10 mg PO DAILY [facility] Last Admin: 07/13/20 10:20 Dose: 10 mg Documented by: Metoprolol Succinate (Metoprolol(Xl)Succ 200 Mg Tablet) 200 mg PO DAILY [facility] Last Admin: 07/13/20 10:20 Dose: 200 mg Documented by: Multivitamins (Multivitamins,Therapeutic Tablet) 1 tablet PO DAILY [facility] Last Admin: 07/13/20 10:20 Dose: 1 tablet Documented by: Ondansetron HCl (Ondansetron 4 Mg/2 Ml Vial) 4 mg IV Q8H PRN PRN PRN Reason: NAUSEA/VOMITING Pantoprazole Sodium (Pantoprazole Sodium 20 Mg Tablet) 20 mg PO DAILY [facility] Last Admin: 07/13/20 10:20 Dose: 20 mg Documented by: Potassium Chloride (Potassium Chloride 20 Meq Tablet) 20 meq PO BID@1000,1700 [facility] Last Admin: 07/13/20 10:20 Dose: 20 meq Documented by: Psyllium Hydrophilic Mucilloid (Psyllium 1 Packet) 1 packet PO DAILY PRN PRN PRN Reason: Constipation Senna/Docusate Sodium (Senna/Docusate Sodium 1 Tablet) 2 tablet PO BID PRN PRN PRN Reason: Constipation Sodium Chloride (0.9% Saline Lock 10 Ml Syringe) 10 - 40 ml IV UD PRN PRN Reason: SALINE FLUSH Clinical Impression(s) from Imaging Studies Chest X-Ray 11/28/20 12:20 IMPRESSION: Increasing multilobar (upper lobe dominance) pulmonary infiltrate suggesting pneumonia, including viral causes. Electronically Signed: Samy Paiz MD ([place]) at 13:17 EST , Service support , Chest CTA 07/12/20 13:54 IMPRESSION: Patchy bilateral groundglass densities and and airspace disease likely multilevel pneumonia. Enlarged right hilar lymph node. No evidence for acute pulmonary embolism or aortic dissection. Electronically Signed: Nash Aguilar, at 14:27 EST Tel , Service support , Assessment/Plan All Active Problems (Last Reviewed 11/29/19 @ 15:[address] Robson Burgess MD) COVID-19 virus infection (Acute) Hypoxia (Acute) Acute systolic heart failure (Resolved) RECOMMENDATIONS: 1. Continue p.o. steroids, remdesivir and anticoagulation 2. No convalescent serum 3. Initiate Airvo to support oxygenation 4. Continue BiPAP with sleep at previous settings 5. Consider intermittent Lasix therapy as tolerated IMPRESSIONS: 1. Acute hypoxic respiratory failure secondary to COVID-19 pneumonia Patient appears to be on appropriate therapy at this time. Patient is requiring Airvo to maintain saturations. Did confirm the patient is a full code and the order has been placed. Patient is appropriately on p.o. steroids, remdesivir and anticoagulation. Discussed the risks, benefits and alternatives with the patient and he would like to not receive convalescent serum at this time. Patient believes he is close to making antibodies himself. Patient understands that oxygenation could become a issue moving forward and is willing to be intubated if necessary. 2. Chronic systolic CHF Patient does not appear to be significantly volume overloaded at this time. Patient can have Lasix intermittently, but would guide with daily BMPs. 3. GONZALO on BiPAP Patient can continue with home BiPAP therapy. Patient may require more supplemental oxygen to maintain saturations. Recommend continuous pulse ox. 4. Morbid obesity/CKD stage III/hypertension Complicates care, management, recovery and prognosis. Patient appears to be at his baseline from a renal function standpoint. Agree with holding lisinopril as acute kidney injury is a risk factor. Inpatient E&M: 30634 Init Hosp L3
--- NOTE | 2020-07-13 12:50 | NURSING ---
Patient's pulse ox alarming out at nurses' station. RT called to evaluate.
--- NOTE | 2020-07-13 13:09 | NURSING ---
RT at bedside. placed on home bipap with home settings with 15L bled in. 02 sats ~ 89-90%
--- NOTE | 2020-07-13 13:28 | NURSING ---
bipap applied at this time per RT
--- NOTE | 2020-07-13 13:54 | CPS ---
Pt.'s oxygen needs were not being met with AirVo (O2 settings maxed out). Pt.'s home BiPAP unit was initiated with 15L bleed in to see if oxygen needs could be met (28/05). Oxygen needs couldn't be met with home unit, so V60 was initiated for pt.
--- NOTE | 2020-07-13 13:58 | NURSING ---
DR MUSE AND DR ZAMUDIO NOTIFIED OF PLACEMENT OF BIPAP. STATUS CHANGED TO STEPDOWN AND LASIX WILL BE GIVEN
[2020-07-13] MEDS: 0.9% Saline Lock 10 ML Syringe IV (14:18)
[2020-07-13] MEDS: Furosemide 40 MG/4 ML Vial IV (14:18)
[2020-07-14] VITALS (45 sets, daily range): BP systolic 92–142; BP diastolic 45–85; PULSE 44–70; RESP 12–27; TEMP 36.1–36.9; O2SAT 87–100
[2020-07-14 05:38] LABS: Absolute Lymphocyte Count 0.53 X10^3/uL (0.83-4.51); Absolute Neutrophil Count 5.3 X10^3/uL (2.0-7.7); Basophil# 0.02 X10^3/uL; Basophil% 0.3 % (0-1); Hematocrit 42.6 % (40-54); Hemoglobin 13.7 g/dL (13.0-16.5); Lymphocyte # 0.53 X10^3/ul (4.0); Lymphocyte % 8.6 % (19-41); Mean Corp Hgb Conc 32.2 g/dL (32-36); Mean Corpuscular Volume 86.9 fL (80-94); Mean Platelet Vol. 9.9 fl (6.2-12.0); Monocyte% 4.9 % (0-10); NRBC Flagged by Analyzer 0 % (0-5); Neutrophil # 5.26 X10^3/uL (2.7-7.7); Neutrophil % 85.7 % (47-70); POSITIVE DIFFERENTIAL YES; POSITIVE MORPHOLOGY YES; Platelet Count 198 K/mm3 (150-450); White Blood Count 6.1 K/mm3 (4.4-11.0)
[2020-07-14 05:39] LABS: Differential Indicated SCAN CRITERIA MET
[2020-07-14 05:54] LABS: ALB/GLOB Ratio 0.5 RATIO (0.9-2.4); AST(SGOT) 27 U/L (15-37); Alanine Aminotransfer ALT/SGPT 34 U/L (16-61); Albumin, Serum 2.7 g/dL (3.2-5.0); Alkaline Phosphatase 53 U/L (45-117); Anion Gap 6 (5-15); BUN 17 mg/dL (7-18); BUN/Creat Ratio 20.7 RATIO (10-20); Calcium,Total 8.9 mg/dL (8.5-10.1); Chloride 102 mmol/L (98-107); Creatinine, Serum 0.82 mg/dL (0.70-1.30); EST Glomerular Filtration Rate 103 mL/min (>60); Est Glom Filt Rate - Afr Amer 124 mL/min (>60); Estimated Creatinine Clearance 109.09 ml/min; Glucose 153 mg/dL (74-106); Protein, Total 7.7 g/dL (6.4-8.2); Sodium Level 134 mmol/L (136-145)
--- NOTE | 2020-07-14 07:06 | PCM.PN.HOSP ---
Patient Problems: Active and Suspected Problems (Last Reviewed 11/29/19 @ 15:[address] Robson Burgess MD) COVID-19 virus infection (Acute) Hypoxia (Acute) Reason for Visit: Follow-up on hypoxia/Acute COVID-19 pneumonia Subjective: Patient was seen and examined. Overnight he has been progressively worsening shortness of breath. He is on BiPAP/Airvo. He however stated that he feels better. Denied any fever or chills Objective: Physical exam: General: Alert, Oriented x3, Cooperative, - - on Bipap HEENT: Atraumatic, PERRLA, EOMI, Normocephalic Oral: Dry Mucosa Neck: Supple Lungs: Diminished Cardiovascular: Regular rate, Regular Rhythm, Normal S1, Normal S2, No murmurs Abdomen: Bowel Sounds Present, Soft, Non Tender, Non-Distended, No Hepato-splenomegaly Extremities: No edema, - - Left great toe distal phalange stump Skin: No rashes Musculoskeletal: No Tenderness to Palpation of Joints or Extremities Lymphatic: No Cervical, Supraclavicular, or Inguinal Adenopathy Neurological: Cranial nerves II-XII grossly intact, Neuro grossly intact Psych/Mental Status: Normal Affect, Appropriate Vitals/I&O's: Vital Signs Temp Pulse Resp BP Pulse Ox 98.4 F 49 L 23 H 113/69 90 07/14/20 06:00 07/14/20 07:00 07/14/20 07:00 07/14/20 07:00 07/14/20 07:00 Oxygen Flow Rate (L/min) 15 Oxygen Delivery Method Bi-pap Weight: 136 kg Body Mass Index (BMI) 41.5 Intake and Output for Last 24 Hours 07/12/20 07/13/20 07/14/20 23:59 23:59 23:59 Intake Total 850 / 850 1350.84 / 1350.84 0 / 0 Output Total 2700 / 2700 600 / 600 Balance 850 / 450 -1349.16 / -1349.16 -600 / -600 Laboratory Results 07/13/20 06:28: Sodium 132 L, Potassium 4.0, Chloride 100, Carbon Dioxide 26.0, Anion Gap 6, BUN 16, Creatinine 0.93, Estim Creat Clear Calc 96.19, Est GFR (MDRD) Af Amer 107, Est GFR (MDRD) Non-Af 89, BUN/Creatinine Ratio 17.2, Glucose 134 H, Calcium 8.5, Total Bilirubin 0.60, AST 34, ALT 34, Alkaline Phosphatase 49, Total Protein 7.3, Albumin 2.7 L, Globulin 4.6 H, Albumin/Globulin Ratio 0.6 L 07/14/20 05:30: WBC 6.1, RBC 4.90, Hgb 13.7, Hct 42.6, MCV 86.9, MCH 28.0, MCHC 32.2, RDW Std Deviation 45.0 H, RDW Coeff of Kathy 14.0, Plt Count 198, MPV 9.9, Immature Gran % (Auto) 0.500, Neut % (Auto) 85.7 H, Lymph % (Auto) 8.6 L, Payne % (Auto) 4.9, Eos % (Auto) 0.0, Baso % (Auto) 0.3, Absolute Neuts (auto) 5.3, Absolute Lymphs (auto) 0.53 L, Nucleated RBC % 0 07/14/20 05:30: Sodium 134 L, Potassium 4.0, Chloride 102, Carbon Dioxide 26.0, Anion Gap 6, BUN 17, Creatinine 0.82, Estim Creat Clear Calc 109.09, Est GFR (MDRD) Af Amer 124, Est GFR (MDRD) Non-Af 103, BUN/Creatinine Ratio 20.7 H, Glucose 153 H, Calcium 8.9, Total Bilirubin 0.40, AST 27, ALT 34, Alkaline Phosphatase 53, Total Protein 7.7, Albumin 2.7 L, Globulin 5.0 H, Albumin/Globulin Ratio 0.5 L Current Medications Acetaminophen (Acetaminophen 325 Mg Tablet) 650 mg PO Q6H PRN PRN PRN Reason: Pain Score 1-10/Temp > 100.7 F Last Admin: 07/12/20 22:46 Dose: 650 mg Documented by: Al Hydroxide/Mg Hydroxide (Mag Hydrox/Al Hydrox/Simeth 30 Ml Udc) 30 ml PO Q6H PRN PRN PRN Reason: Gastric Burning Albuterol Sulfate (Albuterol 2.5 Mg/3 Ml Vial.Neb.) 2.5 mg INHALATION Q2H PRN PRN PRN Reason: Shortness of Breath/Wheezing Albuterol/Ipratropium (Ipratropium/Albuterol Sulfate 3 Ml Ampul.Neb) 3 ml INHALATION Q4HWA.RT [facility] Last Admin: 07/13/20 20:20 Dose: 3 ml Documented by: Dexamethasone (Dexamethasone 4 Mg Tablet) 6 mg PO DAILY [facility] Last Admin: 07/13/20 10:20 Dose: 6 mg Documented by: Enoxaparin Sodium (Enoxaparin 40 Mg/0.4 Ml Syringe) 40 mg SC BID [facility] Last Admin: 07/13/20 20:01 Dose: 40 mg Documented by: Remdesivir 100 mg/ Sodium (Chloride) 250 mls @ 125 mls/hr IV DAILY [facility] Stop: 07/16/20 11:59 Last Infusion: 07/13/20 12:20 Dose: Infused Documented by: Influenza Virus Vaccine Quadrival (Influenza Vaccine (6mos+)/Pf 0.5 Ml Syringe) 0.5 ml IM .ONCE ONE Stop: 07/14/20 10:01 Loratadine (Loratadine 10 Mg Tablet) 10 mg PO DAILY [facility] Last Admin: 07/13/20 10:20 Dose: 10 mg Documented by: Metoprolol Succinate (Metoprolol(Xl)Succ 200 Mg Tablet) 200 mg PO DAILY [facility] Last Admin: 07/13/20 10:20 Dose: 200 mg Documented by: Multivitamins (Multivitamins,Therapeutic Tablet) 1 tablet PO DAILY [facility] Last Admin: 07/13/20 10:20 Dose: 1 tablet Documented by: Ondansetron HCl (Ondansetron 4 Mg/2 Ml Vial) 4 mg IV Q8H PRN PRN PRN Reason: NAUSEA/VOMITING Pantoprazole Sodium (Pantoprazole Sodium 20 Mg Tablet) 20 mg PO DAILY [facility] Last Admin: 07/13/20 10:20 Dose: 20 mg Documented by: Potassium Chloride (Potassium Chloride 20 Meq Tablet) 20 meq PO BID@1000,1700 [facility] Last Admin: 07/13/20 17:45 Dose: Not Given Documented by: Psyllium Hydrophilic Mucilloid (Psyllium 1 Packet) 1 packet PO DAILY PRN PRN PRN Reason: Constipation Senna/Docusate Sodium (Senna/Docusate Sodium 1 Tablet) 2 tablet PO BID PRN PRN PRN Reason: Constipation Sodium Chloride (0.9% Saline Lock 10 Ml Syringe) 10 - 40 ml IV UD PRN PRN Reason: SALINE FLUSH Last Admin: 07/13/20 14:18 Dose: 10 ml Documented by: STROKE Vital Signs/Narrative: Vital Signs Temp Pulse Resp BP BP Pulse Ox 07/14/20 07:00 49 L 23 H 113/69 90 07/14/20 06:00 98.4 F 57 L 22 H 130/85 H 90 07/14/20 05:40 45 L 23 H 91 07/14/20 05:00 49 L 22 H 117/74 91 07/14/20 04:00 98.1 F 48 L 22 H 116/68 90 Medical Necessity - Tobacco Use Smoking Status: Former smoker Tobacco Use: Non-smoker Assessment/Plan All Active Problems (Last Reviewed 11/29/19 @ 15:[address] Robson Burgess MD) COVID-19 virus infection (Acute) Hypoxia (Acute) Acute systolic heart failure (Resolved) 1. Acute hypoxic respiratory sufficient secondary to acute COVID-19 pneumonia, worsening Currently on Bipap. Continue with breathing treatments, PO steroids, encourage use of incentive spirometer. Wean off oxygen for SPO2 more than 94% 2. Acute COVID-19 pneumonia with hypoxia Elevated D-dimer and COVID-19 Continue on dexamethasone, and remdesivir Pulmonology following 3. GONZALO on CPAP 4. CKD stage III, creatinine at baseline, repeat blood work in a.m. 5. Hypertension, controlled, would hold lisinopril for now, continue metoprolol 6. Chronic systolic CHF/ischemic cardiomyopathy, EF 35-40% (2019) On IV lasix. Spironolactone and lisinopril resumed. Will repeat blood work in a.m. Will continue to monitor. 7. Morbid obesity, BMI 41.5, lifestyle modification recommended 8. DVT PPx- Lovenox SC BID Inpatient E&M: 95733 Subs Hosp L2
--- NOTE | 2020-07-14 07:45 | PCM.PN.PUL ---
Patient Problems: Active and Suspected Problems (Last Reviewed 11/29/19 @ 15:[address] Robson Burgess MD) COVID-19 virus infection (Acute) Hypoxia (Acute) Subjective: Patient was some difficulties overnight. Patient had to be placed on BiPAP secondary to hypoxia. Patient states he feels relatively comfortable on the machine and is set to his home settings. Patient denies any current chest pain, but does have some dry mouth. Objective: Patient did not receive convalescent serum. - Physical Exam Vitals/I&O's: Vital Signs Temp Pulse Resp BP Pulse Ox 36.9 C 49 L 23 H 113/69 90 07/14/20 06:00 07/14/20 07:00 07/14/20 07:00 07/14/20 07:00 07/14/20 07:00 Oxygen Flow Rate (L/min) 15 Oxygen Delivery Method Bi-pap Weight: 136 kg Body Mass Index (BMI) 41.5 Intake and Output for Last 24 Hours 07/12/20 07/13/20 07/14/20 23:59 23:59 23:59 Intake Total 850 / 850 1350.84 / 1350.84 0 / 0 Output Total 2700 / 2700 600 / 600 Balance 850 / 450 -1349.16 / -1349.16 -600 / -600 General: Alert, Oriented x3, Cooperative, No apparent distress - On BiPAP, - - Morbidly obese HEENT: Atraumatic, PERRLA, EOMI, Normocephalic, - - No scleral icterus or injection noted Oral: No Gingival or Mucosal Lesions/ Ulcerations, Dry Mucosa Neck: Supple, No JVD, No Nodes, Trachea Midline Lungs: No rhonchi, No wheeze, No rales, Diminished Cardiovascular: Normal S1, Normal S2, No murmurs, Bradycardic, No rub noted, No Gallop Abdomen: Bowel Sounds Present, Soft, Non Tender, Non-Distended, Obese Extremities: No clubbing, No cyanosis, Edema Skin: No rashes, No breakdown Musculoskeletal: No Tenderness to Palpation of Joints or Extremities Lymphatic: No Cervical, Supraclavicular, or Inguinal Adenopathy Neurological: Cranial nerves II-XII grossly intact, Neuro grossly intact, Motor Exam 5/5 strength throughout Psych/Mental Status: Alert and oriented to time, place, person, mood and affect Laboratory Results 07/14/20 05:30: WBC 6.1, RBC 4.90, Hgb 13.7, Hct 42.6, MCV 86.9, MCH 28.0, MCHC 32.2, RDW Std Deviation 45.0 H, RDW Coeff of Kathy 14.0, Plt Count 198, MPV 9.9, Immature Gran % (Auto) 0.500, Neut % (Auto) 85.7 H, Lymph % (Auto) 8.6 L, [place] % (Auto) 4.9, Eos % (Auto) 0.0, Baso % (Auto) 0.3, Absolute Neuts (auto) 5.3, Absolute Lymphs (auto) 0.53 L, Nucleated RBC % 0 07/14/20 05:30: Sodium 134 L, Potassium 4.0, Chloride 102, Carbon Dioxide 26.0, Anion Gap 6, BUN 17, Creatinine 0.82, Estim Creat Clear Calc 109.09, Est GFR (MDRD) Af Amer 124, Est GFR (MDRD) Non-Af 103, BUN/Creatinine Ratio 20.7 H, Glucose 153 H, Calcium 8.9, Total Bilirubin 0.40, AST 27, ALT 34, Alkaline Phosphatase 53, Total Protein 7.7, Albumin 2.7 L, Globulin 5.0 H, Albumin/Globulin Ratio 0.5 L Current Medications Acetaminophen (Acetaminophen 325 Mg Tablet) 650 mg PO Q6H PRN PRN PRN Reason: Pain Score 1-10/Temp > 100.7 F Last Admin: 07/12/20 22:46 Dose: 650 mg Documented by: Al Hydroxide/Mg Hydroxide (Mag Hydrox/Al Hydrox/Simeth 30 Ml Udc) 30 ml PO Q6H PRN PRN PRN Reason: Gastric Burning Albuterol Sulfate (Albuterol 2.5 Mg/3 Ml Vial.Neb.) 2.5 mg INHALATION Q2H PRN PRN PRN Reason: Shortness of Breath/Wheezing Albuterol/Ipratropium (Ipratropium/Albuterol Sulfate 3 Ml Ampul.Neb) 3 ml INHALATION Q4HWA.RT [facility] Last Admin: 07/13/20 20:20 Dose: 3 ml Documented by: Dexamethasone (Dexamethasone 4 Mg Tablet) 6 mg PO DAILY [facility] Last Admin: 11/29/20 10:20 Dose: 6 mg Documented by: Enoxaparin Sodium (Enoxaparin 40 Mg/0.4 Ml Syringe) 40 mg SC BID [facility] Last Admin: 07/13/20 20:01 Dose: 40 mg Documented by: Remdesivir 100 mg/ Sodium (Chloride) 250 mls @ 125 mls/hr IV DAILY [facility] Stop: 07/16/20 11:59 Last Infusion: 07/13/20 12:20 Dose: Infused Documented by: Influenza Virus Vaccine Quadrival (Influenza Vaccine (6mos+)/Pf 0.5 Ml Syringe) 0.5 ml IM .ONCE ONE Stop: 07/14/20 10:01 Loratadine (Loratadine 10 Mg Tablet) 10 mg PO DAILY [facility] Last Admin: 07/13/20 10:20 Dose: 10 mg Documented by: Metoprolol Succinate (Metoprolol(Xl)Succ 200 Mg Tablet) 200 mg PO DAILY [facility] Last Admin: 07/13/20 10:20 Dose: 200 mg Documented by: Multivitamins (Multivitamins,Therapeutic Tablet) 1 tablet PO DAILY [facility] Last Admin: 07/13/20 10:20 Dose: 1 tablet Documented by: Ondansetron HCl (Ondansetron 4 Mg/2 Ml Vial) 4 mg IV Q8H PRN PRN PRN Reason: NAUSEA/VOMITING Pantoprazole Sodium (Pantoprazole Sodium 20 Mg Tablet) 20 mg PO DAILY [facility] Last Admin: 07/13/20 10:20 Dose: 20 mg Documented by: Potassium Chloride (Potassium Chloride 20 Meq Tablet) 20 meq PO BID@1000,1700 [facility] Last Admin: 07/13/20 17:45 Dose: Not Given Documented by: Psyllium Hydrophilic Mucilloid (Psyllium 1 Packet) 1 packet PO DAILY PRN PRN PRN Reason: Constipation Senna/Docusate Sodium (Senna/Docusate Sodium 1 Tablet) 2 tablet PO BID PRN PRN PRN Reason: Constipation Sodium Chloride (0.9% Saline Lock 10 Ml Syringe) 10 - 40 ml IV UD PRN PRN Reason: SALINE FLUSH Last Admin: 07/13/20 14:18 Dose: 10 ml Documented by: Medical Necessity - Tobacco Use Smoking Status: Former smoker Tobacco Use: Non-smoker Assessment/Plan All Active Problems (Last Reviewed 11/29/19 @ 15:[address] Robson Burgess MD) COVID-19 virus infection (Acute) Hypoxia (Acute) Acute systolic heart failure (Resolved) RECOMMENDATIONS: 1. Continue p.o. steroids, remdesivir and anticoagulation 2. No convalescent serum per patient request 3. Continue BiPAP with Airvo breaks as tolerated 4. Initiate diuretic routine 5. Wean oxygen as tolerated IMPRESSIONS: 1. Acute hypoxic respiratory failure secondary to COVID-19 pneumonia Patient appears to be on appropriate therapy at this time. Did confirm the patient is a full code and the order has been placed. Patient is appropriately on p.o. steroids, remdesivir and anticoagulation. Discussed the risks, benefits and alternatives with the patient and he would like to not receive convalescent serum at this time. Patient believes he is close to making antibodies himself. Patient understands that oxygenation could become a issue moving forward and is willing to be intubated if necessary. Patient currently on 70% FiO2, so it is unclear if he will tolerate Airvo breaks, but these can be attempted. Will place patient on diuretic therapy as he will need to be run relatively dry secondary to his CHF. 2. Chronic systolic CHF Patient does not appear to be significantly volume overloaded at this time. Patient can have Lasix intermittently, but would guide with daily BMPs. 3. GONZALO on BiPAP Patient can continue with home BiPAP therapy. Patient may require more supplemental oxygen to maintain saturations. Recommend continuous pulse ox. 4. Morbid obesity/CKD stage III/hypertension Complicates care, management, recovery and prognosis. Patient appears to be at his baseline from a renal function standpoint. Agree with holding lisinopril as acute kidney injury is a risk factor. Inpatient E&M: [id number] [facility] L3
[2020-07-14] MEDS: Ipratropium/Albuterol Sulfate 3 ML AMPUL.NEB INHALATION ×4 (07:51→20:24)
[2020-07-14] MEDS: 0.9% Saline Lock 10 ML Syringe IV (09:06)
[2020-07-14] MEDS: Furosemide 40 MG/4 ML Vial IV ×2 (09:06→17:20)
[2020-07-14] MEDS: Enoxaparin 40 MG/0.4 ML Syringe SC ×2 (09:08→20:45)
[2020-07-14] MEDS: dexAMETHasone 4 MG Tablet 6 MG PO (10:29)
[2020-07-14] MEDS: Metoprolol(XL)Succ 200 MG Tablet PO (10:29)
[2020-07-14] MEDS: Multivitamins,Therapeutic Tablet 1 TABLET PO (10:30)
[2020-07-14] MEDS: Pantoprazole Sodium 20 MG Tablet PO (10:30)
[2020-07-14] MEDS: Loratadine 10 MG Tablet PO (10:30)
--- NOTE | 2020-07-14 12:05 | CASEMGMT ---
RN CM Assessment Note Chart reviewed. Patient was dc'd from [facility] ED on 07/08/2020 with positive covid testing and home oxygen through [facility]. Currently on Airvo. Presentation: shortness of breath COVID TESTING: @ [facility] 07/08- positive Diagnosis: COVID 19 PCP: Dr. Stu Richardson Specialists: Dr. Burgess Insurance: [facility] Community Plan Preferred Pharmacy: [facility] Prescription Benefit: yes LNOK: Living Arrangements: Lives independently with his . Increased weakness with illness prior to coming to hospital Tranportation: drives DME: Home oxygen through [facility] 2L NC. concentrator and portability, pulse ox Patient DC Goals: Home DC Plan: anticipate home on discharge. Recommend home oxygen testing on 2L NC with rest and ambulation to see if increased settings are needed. New script would need to be sent to [facility] if settings change. CM available for discharge planning coordination. Contact CM for any concerns/needs that may arise. Pardeep RETANA RN ACM
[2020-07-14] MEDS: Lisinopril 5 MG Tablet PO (17:20)
[2020-07-15] VITALS (30 sets, daily range): BP systolic 101–136; BP diastolic 54–116; PULSE 40–66; RESP 12–23; TEMP 36–36.4; O2SAT 90–99
[2020-07-15 06:56] LABS: Absolute Lymphocyte Count 0.66 X10^3/uL (0.83-4.51); Absolute Neutrophil Count 3.9 X10^3/uL (2.0-7.7); Basophil# 0.02 X10^3/uL; Basophil% 0.4 % (0-1); Hematocrit 41.6 % (40-54); Hemoglobin 13.8 g/dL (13.0-16.5); Lymphocyte # 0.66 X10^3/ul (4.0); Lymphocyte % 13.2 % (19-41); Mean Corp Hgb Conc 33.2 g/dL (32-36); Mean Corpuscular Hgb 28.5 pg (27.0-32.0); Mean Corpuscular Volume 85.8 fL (80-94); Mean Platelet Vol. 10.1 fl (6.2-12.0); Monocyte# 0.39 X10^3/uL; Monocyte% 7.8 % (0-10); NRBC Flagged by Analyzer 0 % (0-5); Neutrophil # 3.87 X10^3/uL (2.7-7.7); Neutrophil % 77.6 % (47-70); POSITIVE MORPHOLOGY YES; Platelet Count 250 K/mm3 (150-450); RBC Distribution Width CV 13.9 % (11.6-14.6); RBC Distribution Width SD 43.8 fl (35.1-43.9); Red Blood Count 4.85 M/mm3 (4.6-6.2)
[2020-07-15 07:10] LABS: Differential Indicated SCAN CRITERIA MET
[2020-07-15 07:25] LABS: ALB/GLOB Ratio 0.8 RATIO (0.9-2.4); AST(SGOT) 23 U/L (15-37); Alanine Aminotransfer ALT/SGPT 33 U/L (16-61); Alkaline Phosphatase 54 U/L (45-117); Anion Gap 5 (5-15); BUN 24 mg/dL (7-18); BUN/Creat Ratio 26.2 RATIO (10-20); Calcium,Total 8.8 mg/dL (8.5-10.1); Chloride 102 mmol/L (98-107); Creatinine, Serum 0.92 mg/dL (0.70-1.30); EST Glomerular Filtration Rate 90 mL/min (>60); Est Glom Filt Rate - Afr Amer 109 mL/min (>60); Estimated Creatinine Clearance 97.23 ml/min; Globulin 3.8 g/dL (2.2-4.2); Glucose 153 mg/dL (74-106); Potassium 4.3 mmol/L (3.5-5.1); Protein, Total 6.8 g/dL (6.4-8.2); Sodium Level 137 mmol/L (136-145)
[2020-07-15] MEDS: Ipratropium/Albuterol Sulfate 3 ML AMPUL.NEB INHALATION ×4 (07:27→19:49)
[2020-07-15] MEDS: Lisinopril 5 MG Tablet PO (08:22)
[2020-07-15] MEDS: Pantoprazole Sodium 20 MG Tablet PO (08:23)
[2020-07-15] MEDS: dexAMETHasone 4 MG Tablet 6 MG PO (08:23)
[2020-07-15] MEDS: Multivitamins,Therapeutic Tablet 1 TABLET PO (08:23)
[2020-07-15] MEDS: Loratadine 10 MG Tablet PO (08:23)
[2020-07-15] MEDS: Furosemide 40 MG/4 ML Vial IV ×2 (08:23→18:15)
[2020-07-15] MEDS: Enoxaparin 40 MG/0.4 ML Syringe SC ×2 (08:24→21:47)
[2020-07-15] MEDS: Spironolactone 25 MG Tablet 12.5 MG PO (08:24)
--- NOTE | 2020-07-15 13:12 | PCM.PN.PUL ---
Patient Problems: Active and Suspected Problems (Last Reviewed 11/29/19 @ 15:[address] Robson Burgess MD) COVID-19 virus infection (Acute) Hypoxia (Acute) Subjective: Patient did well overnight. Patient has been tolerating Airvo during the day and feels subjectively like he is improving. Patient still has a cough and reports significant shortness of breath with exertion. - Physical Exam Vitals/I&O's: Vital Signs Temp Pulse Resp BP Pulse Ox 36.0 C L 47 L 20 H 101/64 94 07/15/20 08:15 07/15/20 12:00 07/15/20 12:00 07/15/20 12:00 07/15/20 12:00 Oxygen Flow Rate (L/min) 60 Oxygen Delivery Method Airvo Weight: 135 kg Body Mass Index (BMI) 41.5 Intake and Output for Last 24 Hours 07/13/20 07/14/20 07/15/20 23:59 23:59 23:59 Intake Total 1350.84 / 1350.84 250 / 250 Output Total 2700 / 2700 1600 / 1600 760 / 760 Balance -1349.16 / -1349.16 -1350 / -1350 -760 / -760 General: Alert, Oriented x3, Cooperative, No apparent distress, - - Morbidly obese. Speaking in full sentences. HEENT: Atraumatic, PERRLA, EOMI, Normocephalic Oral: Moist Mucosa, No Gingival or Mucosal Lesions/ Ulcerations Neck: Supple, No JVD, No Nodes, Trachea Midline Lungs: No rhonchi, No wheeze, No rales, Diminished, - - Symmetric expansion. No dullness to percussion. Cardiovascular: Regular rate, Regular Rhythm, Normal S1, Normal S2, No murmurs, No rub noted, No Gallop Abdomen: Bowel Sounds Present, Soft, Non Tender, Non-Distended, Obese Extremities: No clubbing, No cyanosis, Edema - 1+ lower extremity Skin: - - No change compared to previous Musculoskeletal: No Tenderness to Palpation of Joints or Extremities Lymphatic: No Cervical, Supraclavicular, or Inguinal Adenopathy Neurological: Cranial nerves II-XII grossly intact, Neuro grossly intact, Motor Exam 5/5 strength throughout Psych/Mental Status: Alert and oriented to time, place, person, mood and affect Microbiology Past 72 Hours 07/12/20 12:35 Blood Culture (Wb) - Left Hand Blood Culture - Preliminary No growth in 48 hours. 07/12/20 12:15 Blood Culture (Wb) - Left Forearm Blood Culture - Preliminary No growth in 48 hours. Laboratory Results 07/15/20 06:05: WBC 5.0, RBC 4.85, Hgb 13.8, Hct 41.6, MCV 85.8, MCH 28.5, MCHC 33.2, RDW Std Deviation 43.8, RDW Coeff of Kathy 13.9, Plt Count 250, MPV 10.1, Immature Gran % (Auto) 1.000 H, Neut % (Auto) 77.6 H, Lymph % (Auto) 13.2 L, [place] % (Auto) 7.8, Eos % (Auto) 0.0, Baso % (Auto) 0.4, Absolute Neuts (auto) 3.9, Absolute Lymphs (auto) 0.66 L, Nucleated RBC % 0 07/15/20 06:05: Sodium 137, Potassium 4.3, Chloride 102, Carbon Dioxide 30.0, Anion Gap 5, BUN 24 H, Creatinine 0.92, Estim Creat Clear Calc 97.23, Est GFR (MDRD) Af Amer 109, Est GFR (MDRD) Non-Af 90, BUN/Creatinine Ratio 26.2 H, Glucose 153 H, Calcium 8.8, Total Bilirubin 0.50, AST 23, ALT 33, Alkaline Phosphatase 54, Total Protein 6.8, Albumin 3.0 L, Globulin 3.8, Albumin/Globulin Ratio 0.8 L Current Medications Acetaminophen (Acetaminophen 325 Mg Tablet) 650 mg PO Q6H PRN PRN PRN Reason: Pain Score 1-10/Temp > 100.7 F Last Admin: 07/12/20 22:46 Dose: 650 mg Documented by: Al Hydroxide/Mg Hydroxide (Mag Hydrox/Al Hydrox/Simeth 30 Ml Udc) 30 ml PO Q6H PRN PRN PRN Reason: Gastric Burning Albuterol Sulfate (Albuterol 2.5 Mg/3 Ml Vial.Neb.) 2.5 mg INHALATION Q2H PRN PRN PRN Reason: Shortness of Breath/Wheezing Albuterol/Ipratropium (Ipratropium/Albuterol Sulfate 3 Ml Ampul.Neb) 3 ml INHALATION Q4HWA.RT [facility] Last Admin: 07/15/20 11:18 Dose: 3 ml Documented by: Dexamethasone (Dexamethasone 4 Mg Tablet) 6 mg PO DAILY [facility] Last Admin: 07/15/20 08:23 Dose: 6 mg Documented by: Enoxaparin Sodium (Enoxaparin 40 Mg/0.4 Ml Syringe) 40 mg SC BID [facility] Last Admin: 07/15/20 08:24 Dose: 40 mg Documented by: Furosemide (Furosemide 40 Mg/4 Ml Vial) 40 mg IV BID@1000,1700 [facility] Last Admin: 07/15/20 08:23 Dose: 40 mg Documented by: Remdesivir 100 mg/ Sodium (Chloride) 250 mls @ 125 mls/hr IV DAILY [facility] Stop: 07/16/20 11:59 Last Admin: 07/15/20 11:08 Dose: 125 mls/hr Documented by: Lisinopril (Lisinopril 5 Mg Tablet) 5 mg PO DAILY [facility] Last Admin: 07/15/20 08:22 Dose: 5 mg Documented by: Loratadine (Loratadine 10 Mg Tablet) 10 mg PO DAILY [facility] Last Admin: 07/15/20 08:23 Dose: 10 mg Documented by: Metoprolol Succinate (Metoprolol(Xl)Succ 200 Mg Tablet) 200 mg PO DAILY [facility] Last Admin: 07/15/20 08:20 Dose: Not Given Documented by: Multivitamins (Multivitamins,Therapeutic Tablet) 1 tablet PO DAILY [facility] Last Admin: 07/15/20 08:23 Dose: 1 tablet Documented by: Ondansetron HCl (Ondansetron 4 Mg/2 Ml Vial) 4 mg IV Q8H PRN PRN PRN Reason: NAUSEA/VOMITING Pantoprazole Sodium (Pantoprazole Sodium 20 Mg Tablet) 20 mg PO DAILY [facility] Last Admin: 07/15/20 08:23 Dose: 20 mg Documented by: Potassium Chloride (Potassium Chloride 20 Meq Tablet) 20 meq PO BID@1000,1700 [facility] Last Admin: 07/15/20 08:23 Dose: 20 meq Documented by: Psyllium Hydrophilic Mucilloid (Psyllium 1 Packet) 1 packet PO DAILY PRN PRN PRN Reason: Constipation Senna/Docusate Sodium (Senna/Docusate Sodium 1 Tablet) 2 tablet PO BID PRN PRN PRN Reason: Constipation Sodium Chloride (0.9% Saline Lock 10 Ml Syringe) 10 - 40 ml IV UD PRN PRN Reason: SALINE FLUSH Last Admin: 07/14/20 09:06 Dose: 10 ml Documented by: Spironolactone (Spironolactone 25 Mg Tablet) 12.5 mg PO DAILY [facility] Last Admin: 07/15/20 08:24 Dose: 12.5 mg Documented by: Medical Necessity - Tobacco Use Smoking Status: Former smoker Tobacco Use: Non-smoker Assessment/Plan All Active Problems (Last Reviewed 11/29/19 @ 15:[address] Robson Burgess MD) COVID-19 virus infection (Acute) Hypoxia (Acute) Acute systolic heart failure (Resolved) RECOMMENDATIONS: 1. Continue p.o. steroids, remdesivir and anticoagulation 2. No convalescent serum per patient request 3. Continue BiPAP with Airvo breaks as tolerated 4. Continue diuretic routine as tolerated 5. Wean oxygen as tolerated IMPRESSIONS: 1. Acute hypoxic respiratory failure secondary to COVID-19 pneumonia Patient appears to be on appropriate therapy at this time. Did confirm the patient is a full code and the order has been placed. Patient is appropriately on p.o. steroids, remdesivir and anticoagulation. Discussed the risks, benefits and alternatives with the patient and he would like to not receive convalescent serum at this time. Patient believes he is close to making antibodies himself. Patient appears to have relatively stabilized from a respiratory standpoint. Continue Airvo during the day to facilitate p.o. diet, but BiPAP with sleep. Continue diuresis as tolerated.. 2. Chronic systolic CHF Patient does not appear to be significantly volume overloaded at this time. Continue diuresis with daily labs monitoring renal function 3. GONZALO on BiPAP Patient can continue with home BiPAP therapy. Patient may require more supplemental oxygen to maintain saturations. Recommend continuous pulse ox. 4. Morbid obesity/CKD stage III/hypertension Complicates care, management, recovery and prognosis. Patient appears to be at his baseline from a renal function standpoint. Agree with holding lisinopril as acute kidney injury is a risk factor. Inpatient E&M: [id number] [facility] L3
--- NOTE | 2020-07-15 17:17 | PCM.PN.HOSP ---
Patient Problems: Active and Suspected Problems (Last Reviewed 11/29/19 @ 15:[address] Robson Burgess MD) COVID-19 virus infection (Acute) Hypoxia (Acute) Subjective: Feeling much better. Anxious to wean O2. No complaints. Vitals/I&O's: Vital Signs Temp Pulse Resp BP Pulse Ox 97.5 F L 46 L 16 118/71 94 07/15/20 15:00 07/15/20 15:00 07/15/20 15:00 07/15/20 15:00 07/15/20 15:26 Oxygen Flow Rate (L/min) 60 Oxygen Delivery Method Airvo Weight: 135 kg Body Mass Index (BMI) 41.5 Intake and Output for Last 24 Hours 07/13/20 07/14/20 07/15/20 23:59 23:59 23:59 Intake Total 1350.84 / 1350.84 250 / 250 250 / 250 Output Total 2700 / 2700 1600 / 1600 760 / 760 Balance -1349.16 / -1349.16 -1350 / -1350 -510 / -510 General: Alert, Oriented x3, Cooperative, Well developed, Well nourished, - - WF sitting up in a chair feeling well HEENT: Atraumatic, Normocephalic Oral: Moist Mucosa, No Gingival or Mucosal Lesions/ Ulcerations Neck: Supple, Trachea Midline Lungs: Clear to auscultation, No rhonchi, No wheeze, No rales, Diminished Cardiovascular: Regular rate, Regular Rhythm, Normal S1, Normal S2, No murmurs, No Ectopic Activity, No rub noted, No Gallop Abdomen: Bowel Sounds Present, Soft, Non Tender, Non-Distended, No Hepato-splenomegaly, Obese Extremities: No clubbing, No cyanosis, No edema, Capillary Refill Less than 3 Seconds, Peripheral Pulses Normal Skin: No rashes, No breakdown Musculoskeletal: No Tenderness to Palpation of Joints or Extremities, No Muscle Wasting Neurological: Cranial nerves II-XII grossly intact, Neuro grossly intact Psych/Mental Status: Normal Affect, Appropriate Microbiology Past 72 Hours 07/12/20 12:35 Blood Culture (Wb) - Left Hand Blood Culture - Preliminary No growth in 48 hours. 07/12/20 12:15 Blood Culture (Wb) - Left Forearm Blood Culture - Preliminary No growth in 48 hours. Laboratory Results 07/15/20 06:05: WBC 5.0, RBC 4.85, Hgb 13.8, Hct 41.6, MCV 85.8, MCH 28.5, MCHC 33.2, RDW Std Deviation 43.8, RDW Coeff of Kathy 13.9, Plt Count 250, MPV 10.1, Immature Gran % (Auto) 1.000 H, Neut % (Auto) 77.6 H, Lymph % (Auto) 13.2 L, [place] % (Auto) 7.8, Eos % (Auto) 0.0, Baso % (Auto) 0.4, Absolute Neuts (auto) 3.9, Absolute Lymphs (auto) 0.66 L, Nucleated RBC % 0 07/15/20 06:05: Sodium 137, Potassium 4.3, Chloride 102, Carbon Dioxide 30.0, Anion Gap 5, BUN 24 H, Creatinine 0.92, Estim Creat Clear Calc 97.23, Est GFR (MDRD) Af Amer 109, Est GFR (MDRD) Non-Af 90, BUN/Creatinine Ratio 26.2 H, Glucose 153 H, Calcium 8.8, Total Bilirubin 0.50, AST 23, ALT 33, Alkaline Phosphatase 54, Total Protein 6.8, Albumin 3.0 L, Globulin 3.8, Albumin/Globulin Ratio 0.8 L Current Medications Acetaminophen (Acetaminophen 325 Mg Tablet) 650 mg PO Q6H PRN PRN PRN Reason: Pain Score 1-10/Temp > 100.7 F Last Admin: 07/12/20 22:46 Dose: 650 mg Documented by: Al Hydroxide/Mg Hydroxide (Mag Hydrox/Al Hydrox/Simeth 30 Ml Udc) 30 ml PO Q6H PRN PRN PRN Reason: Gastric Burning Albuterol Sulfate (Albuterol 2.5 Mg/3 Ml Vial.Neb.) 2.5 mg INHALATION Q2H PRN PRN PRN Reason: Shortness of Breath/Wheezing Albuterol/Ipratropium (Ipratropium/Albuterol Sulfate 3 Ml Ampul.Neb) 3 ml INHALATION Q4HWA.RT [facility] Last Admin: 07/15/20 14:43 Dose: 3 ml Documented by: Dexamethasone (Dexamethasone 4 Mg Tablet) 6 mg PO DAILY [facility] Last Admin: 07/15/20 08:23 Dose: 6 mg Documented by: Enoxaparin Sodium (Enoxaparin 40 Mg/0.4 Ml Syringe) 40 mg SC BID [facility] Last Admin: 07/15/20 08:24 Dose: 40 mg Documented by: Furosemide (Furosemide 40 Mg/4 Ml Vial) 40 mg IV BID@1000,1700 [facility] Last Admin: 07/15/20 08:23 Dose: 40 mg Documented by: Remdesivir 100 mg/ Sodium (Chloride) 250 mls @ 125 mls/hr IV DAILY [facility] Stop: 07/16/20 11:59 Last Infusion: 07/15/20 14:04 Dose: Infused Documented by: Lisinopril (Lisinopril 5 Mg Tablet) 5 mg PO DAILY [facility] Last Admin: 07/15/20 08:22 Dose: 5 mg Documented by: Loratadine (Loratadine 10 Mg Tablet) 10 mg PO DAILY [facility] Last Admin: 07/15/20 08:23 Dose: 10 mg Documented by: Metoprolol Succinate (Metoprolol(Xl)Succ 200 Mg Tablet) 200 mg PO DAILY [facility] Last Admin: 07/15/20 08:20 Dose: Not Given Documented by: Multivitamins (Multivitamins,Therapeutic Tablet) 1 tablet PO DAILY [facility] Last Admin: 07/15/20 08:23 Dose: 1 tablet Documented by: Ondansetron HCl (Ondansetron 4 Mg/2 Ml Vial) 4 mg IV Q8H PRN PRN PRN Reason: NAUSEA/VOMITING Pantoprazole Sodium (Pantoprazole Sodium 20 Mg Tablet) 20 mg PO DAILY [facility] Last Admin: 07/15/20 08:23 Dose: 20 mg Documented by: Potassium Chloride (Potassium Chloride 20 Meq Tablet) 20 meq PO BID@1000,1700 [facility] Last Admin: 07/15/20 08:23 Dose: 20 meq Documented by: Psyllium Hydrophilic Mucilloid (Psyllium 1 Packet) 1 packet PO DAILY PRN PRN PRN Reason: Constipation Senna/Docusate Sodium (Senna/Docusate Sodium 1 Tablet) 2 tablet PO BID PRN PRN PRN Reason: Constipation Sodium Chloride (0.9% Saline Lock 10 Ml Syringe) 10 - 40 ml IV UD PRN PRN Reason: SALINE FLUSH Last Admin: 07/14/20 09:06 Dose: 10 ml Documented by: Spironolactone (Spironolactone 25 Mg Tablet) 12.5 mg PO DAILY [facility] Last Admin: 07/15/20 08:24 Dose: 12.5 mg Documented by: STROKE Vital Signs/Narrative: Vital Signs Temp Pulse Resp BP BP Pulse Ox 07/15/20 15:26 94 07/15/20 15:00 97.5 F L 46 L 16 118/71 97 07/15/20 14:44 58 L 17 07/15/20 14:40 55 L 18 95 07/15/20 14:00 51 L 18 117/66 94 Medical Necessity - Tobacco Use Smoking Status: Former smoker Tobacco Use: Non-smoker Assessment/Plan All Active Problems (Last Reviewed 11/29/19 @ 15:[address] Robson Burgess MD) COVID-19 virus infection (Acute) Hypoxia (Acute) Acute systolic heart failure (Resolved) Acute Hypoxic Respiratory Failure 2/ to COVID-19 PNA -conitinuye Decadron day 10/22/Remdesivir day 10/17 -no convalescant plasma per pt requests -cointinue anticoagulation -BIPAP with sleep -Wean AIRVO as able now to 50% -Pulm following HFrEF-compensated -continue home meds except for ACEI -monitor GONZALO -BIPAP at HS CKD stage 3 -at baseline -monitor -ACEI is on hold GERD -PPI HTN -continue home meds except for ACEI (5mg lisinopril) MO -recommend wgt loss DVT prophylaxis -LMWH 40 mg BID Code status -Full Inpatient E&M: 70272 [facility] Hosp L2
[2020-07-15 18:57] LABS: Absolute Lymphocyte Count 0.71 X10^3/uL (0.83-4.51); Absolute Neutrophil Count 7.4 X10^3/uL (2.0-7.7); Basophil# 0.03 X10^3/uL; Basophil% 0.3 % (0-1); Hematocrit 44.9 % (40-54); Hemoglobin 14.7 g/dL (13.0-16.5); Lymphocyte # 0.71 X10^3/ul (4.0); Lymphocyte % 8.2 % (19-41); Mean Corp Hgb Conc 32.7 g/dL (32-36); Mean Corpuscular Hgb 28.1 pg (27.0-32.0); Mean Corpuscular Volume 85.9 fL (80-94); Mean Platelet Vol. 10.2 fl (6.2-12.0); Monocyte# 0.36 X10^3/uL; Monocyte% 4.2 % (0-10); NRBC Flagged by Analyzer 0 % (0-5); Neutrophil # 7.43 X10^3/uL (2.7-7.7); Neutrophil % 86.3 % (47-70); POSITIVE MORPHOLOGY YES; Platelet Count 330 K/mm3 (150-450); RBC Distribution Width CV 14.1 % (11.6-14.6); RBC Distribution Width SD 44.2 fl (35.1-43.9); Red Blood Count 5.23 M/mm3 (4.6-6.2); White Blood Count 8.6 K/mm3 (4.4-11.0)
[2020-07-15 18:58] LABS: Differential Indicated SCAN CRITERIA MET
[2020-07-15 19:09] LABS: Anion Gap 5 (5-15); BUN 30 mg/dL (7-18); BUN/Creat Ratio 22.6 RATIO (10-20); Calcium,Total 9.7 mg/dL (8.5-10.1); Chloride 101 mmol/L (98-107); Creatinine, Serum 1.33 mg/dL (0.70-1.30); EST Glomerular Filtration Rate 59 mL/min (>60); Est Glom Filt Rate - Afr Amer 71 mL/min (>60); Estimated Creatinine Clearance 67.26 ml/min; Glucose 248 mg/dL (74-106); Potassium 4.2 mmol/L (3.5-5.1); Sodium Level 133 mmol/L (136-145)
[2020-07-15 19:22] LABS: Differential Comment SCANNED
[2020-07-16] VITALS (18 sets, daily range): BP systolic 118–125; BP diastolic 60–73; PULSE 49–84; RESP 16–22; TEMP 36.2–36.8; O2SAT 91–96
[2020-07-16] MEDS: Ipratropium/Albuterol Sulfate 3 ML AMPUL.NEB INHALATION ×4 (07:21→18:35)
[2020-07-16] MEDS: Pantoprazole Sodium 20 MG Tablet PO (08:49)
[2020-07-16] MEDS: dexAMETHasone 4 MG Tablet 6 MG PO (08:49)
[2020-07-16] MEDS: Enoxaparin 40 MG/0.4 ML Syringe SC ×2 (08:50→21:34)
[2020-07-16] MEDS: Spironolactone 25 MG Tablet 12.5 MG PO (08:50)
[2020-07-16] MEDS: Lisinopril 5 MG Tablet PO (08:50)
[2020-07-16] MEDS: Loratadine 10 MG Tablet PO (08:50)
[2020-07-16] MEDS: Multivitamins,Therapeutic Tablet 1 TABLET PO (08:50)
[2020-07-16] MEDS: Metoprolol(XL)Succ 200 MG Tablet PO (08:51)
[2020-07-16] MEDS: Furosemide 40 MG/4 ML Vial IV (08:51)
--- NOTE | 2020-07-16 11:53 | PCM.PN.PUL ---
Patient Problems: Active and Suspected Problems (Last Reviewed 11/29/19 @ 15:[address] Robson Burgess MD) COVID-19 virus infection (Acute) Hypoxia (Acute) Subjective: The patient was seen and examined at the bedside this morning. Events from the last 24 hours have been reviewed. The patient is currently afebrile, hemodynamically stable and maintaining appropriate oxygen saturations on 12 L/min via nasal cannula. The patient remains on remdesivir and Decadron. He is currently documented to be overall net -4.4 L for the hospital admission. The patient continues to have shortness of breath and a nonproductive cough. Objective: The patient's most recent lab work, culture data and imaging studies have all been personally reviewed. Surface echocardiogram dated August 2016 revealed a moderately dilated LV with an ejection fraction of 15%. - Physical Exam Vitals/I&O's: Vital Signs Temp Pulse Resp BP Pulse Ox 97.2 F L 79 22 H 118/68 92 07/16/20 08:47 07/16/20 11:13 07/16/20 11:13 07/16/20 08:47 07/16/20 08:47 Oxygen Flow Rate (L/min) 14 Oxygen Delivery Method Nasal Cannula Weight: 295 lb 6.711 oz Body Mass Index (BMI) 41.5 Intake and Output for Last 24 Hours 07/14/20 07/15/20 07/16/20 23:59 23:59 23:59 Intake Total 250 / 250 250 / 550 660 / 660 Output Total 1600 / 1600 1410 / 2260 2049 / 2049 Balance -1350 / -1350 -1160 / -1710 -1390 / -1390 General: Alert, Oriented x3, Cooperative, No apparent distress, - - Sitting in bedside recliner. HEENT: Atraumatic, Normocephalic Oral: No Gingival or Mucosal Lesions/ Ulcerations Neck: Supple, No Nodes, Trachea Midline Lungs: Diminished Cardiovascular: Regular rate, Regular Rhythm Abdomen: Bowel Sounds Present, Soft, Non Tender, Obese Extremities: No clubbing, No cyanosis, No edema Skin: No breakdown Musculoskeletal: No Tenderness to Palpation of Joints or Extremities Lymphatic: No Cervical, Supraclavicular, or Inguinal Adenopathy Neurological: Cranial nerves II-XII grossly intact, Neuro grossly intact Psych/Mental Status: Normal Affect, Appropriate Labs (Last 48 Hours) 07/15/20 07/15/20 07/15/20 06:05 06:05 18:49 WBC 5.0 8.6 RBC 4.85 5.23 Hgb 13.8 14.7 Hct 41.6 44.9 MCV 85.8 85.9 MCH 28.5 28.1 MCHC 33.2 32.7 RDW Std Deviation 43.8 44.2 H RDW Coeff of Kathy 13.9 14.1 Plt Count 250 330 MPV 10.1 10.2 Immature Gran % (Auto) 1.000 H 1.000 H Neut % (Auto) 77.6 H 86.3 H Lymph % (Auto) 13.2 L 8.2 L [facility] % (Auto) 7.8 4.2 Eos % (Auto) 0.0 0.0 Baso % (Auto) 0.4 0.3 Absolute Neuts (auto) 3.9 7.4 Absolute Lymphs (auto) 0.66 L 0.71 L Nucleated RBC % 0 0 Differential Comment SCANNED Sodium 137 Potassium 4.3 Chloride 102 Carbon Dioxide 30.0 Anion Gap 5 BUN 24 H Creatinine 0.92 Estim Creat Clear Calc 97.23 Est GFR (MDRD) Af Amer 109 Est GFR (MDRD) Non-Af 90 BUN/Creatinine Ratio 26.2 H Glucose 153 H Calcium 8.8 Total Bilirubin 0.50 AST 23 ALT 33 Alkaline Phosphatase 54 Total Protein 6.8 Albumin 3.0 L Globulin 3.8 Albumin/Globulin Ratio 0.8 L 07/15/20 18:49 WBC RBC Hgb Hct MCV MCH MCHC RDW Std Deviation RDW Coeff of Kathy Plt Count MPV Immature Gran % (Auto) Neut % (Auto) Lymph % (Auto) [facility] % (Auto) Eos % (Auto) Baso % (Auto) Absolute Neuts (auto) Absolute Lymphs (auto) Nucleated RBC % Differential Comment Sodium 133 L Potassium 4.2 Chloride 101 Carbon Dioxide 27.0 Anion Gap 5 BUN 30 H Creatinine 1.33 H Estim Creat Clear Calc 67.26 Est GFR (MDRD) Af Amer 71 Est GFR (MDRD) Non-Af 59 L BUN/Creatinine Ratio 22.6 H Glucose 248 H Calcium 9.7 Total Bilirubin AST ALT Alkaline Phosphatase Total Protein Albumin Globulin Albumin/Globulin Ratio Microbiology 07/12/20 12:35 Blood Culture (Wb) - Left Hand Blood Culture - Preliminary No growth in 48 hours. 07/12/20 12:15 Blood Culture (Wb) - Left Forearm Blood Culture - Preliminary No growth in 48 hours. Clinical Impression(s) from Imaging Studies Chest X-Ray 07/12/20 12:20 IMPRESSION: Increasing multilobar (upper lobe dominance) pulmonary infiltrate suggesting pneumonia, including viral causes. Electronically Signed: Samy Paiz MD ([place]) at 13:17 EST , Service support , Chest CTA 07/12/20 13:54 IMPRESSION: Patchy bilateral groundglass densities and and airspace disease likely multilevel pneumonia. Enlarged right hilar lymph node. No evidence for acute pulmonary embolism or aortic dissection. Electronically Signed: Nash Aguilar, at 14:27 EST Tel , Service support , Current Medications Acetaminophen (Acetaminophen 325 Mg Tablet) 650 mg PO Q6H PRN PRN PRN Reason: Pain Score 1-10/Temp > 100.7 F Last Admin: 07/12/20 22:46 Dose: 650 mg Documented by: Al Hydroxide/Mg Hydroxide (Mag Hydrox/Al Hydrox/Simeth 30 Ml Udc) 30 ml PO Q6H PRN PRN PRN Reason: Gastric Burning Albuterol Sulfate (Albuterol 2.5 Mg/3 Ml Vial.Neb.) 2.5 mg INHALATION Q2H PRN PRN PRN Reason: Shortness of Breath/Wheezing Albuterol/Ipratropium (Ipratropium/Albuterol Sulfate 3 Ml Ampul.Neb) 3 ml INHALATION Q4HWA.RT [facility] Last Admin: 07/16/20 11:12 Dose: 3 ml Documented by: Dexamethasone (Dexamethasone 4 Mg Tablet) 6 mg PO DAILY [facility] Last Admin: 07/16/20 08:49 Dose: 6 mg Documented by: Enoxaparin Sodium (Enoxaparin 40 Mg/0.4 Ml Syringe) 40 mg SC BID [facility] Last Admin: 07/16/20 08:50 Dose: 40 mg Documented by: Furosemide (Furosemide 40 Mg/4 Ml Vial) 40 mg IV BID@1000,1700 [facility] Last Admin: 07/16/20 08:51 Dose: 40 mg Documented by: Remdesivir 100 mg/ Sodium (Chloride) 250 mls @ 125 mls/hr IV DAILY [facility] Stop: 07/16/20 11:59 Last Admin: 07/16/20 10:46 Dose: 125 mls/hr Documented by: Lisinopril (Lisinopril 5 Mg Tablet) 5 mg PO DAILY [facility] Last Admin: 07/16/20 08:50 Dose: 5 mg Documented by: Loratadine (Loratadine 10 Mg Tablet) 10 mg PO DAILY [facility] Last Admin: 07/16/20 08:50 Dose: 10 mg Documented by: Metoprolol Succinate (Metoprolol(Xl)Succ 200 Mg Tablet) 200 mg PO DAILY [facility] Last Admin: 07/16/20 08:51 Dose: 200 mg Documented by: Multivitamins (Multivitamins,Therapeutic Tablet) 1 tablet PO DAILY [facility] Last Admin: 07/16/20 08:50 Dose: 1 tablet Documented by: Ondansetron HCl (Ondansetron 4 Mg/2 Ml Vial) 4 mg IV Q8H PRN PRN PRN Reason: NAUSEA/VOMITING Pantoprazole Sodium (Pantoprazole Sodium 20 Mg Tablet) 20 mg PO DAILY [facility] Last Admin: 07/16/20 08:49 Dose: 20 mg Documented by: Potassium Chloride (Potassium Chloride 20 Meq Tablet) 20 meq PO BID@1000,1700 [facility] Last Admin: 07/16/20 08:50 Dose: 20 meq Documented by: Psyllium Hydrophilic Mucilloid (Psyllium 1 Packet) 1 packet PO DAILY PRN PRN PRN Reason: Constipation Senna/Docusate Sodium (Senna/Docusate Sodium 1 Tablet) 2 tablet PO BID PRN PRN PRN Reason: Constipation Sodium Chloride (0.9% Saline Lock 10 Ml Syringe) 10 - 40 ml IV UD PRN PRN Reason: SALINE FLUSH Last Admin: 07/14/20 09:06 Dose: 10 ml Documented by: Spironolactone (Spironolactone 25 Mg Tablet) 12.5 mg PO DAILY [facility] Last Admin: 07/16/20 08:50 Dose: 12.5 mg Documented by: Medical Necessity - Tobacco Use Smoking Status: Former smoker Tobacco Use: Non-smoker Assessment/Plan All Active Problems (Last Reviewed 11/29/19 @ 15:[address] Robson Burgess MD) COVID-19 virus infection (Acute) Hypoxia (Acute) Acute systolic heart failure (Resolved) RECOMMENDATIONS: 1. Continue p.o. steroids, remdesivir and anticoagulation 2. Wean supplemental oxygen to maintain saturations at or above 90%. 3. Continue nocturnal BiPAP therapy. 4. Continue diuresis as tolerated by hemodynamics and renal function. 5. Encourage incentive spirometer use and mobilize patient as tolerated. IMPRESSIONS: 1. Acute hypoxic respiratory failure secondary to COVID-19 pneumonia Plan to continue current supportive measures with supplemental oxygen to maintain saturations at or above 90%. Continue remdesivir and Decadron as ordered. CTA showed no evidence for pulmonary embolism. Therefore, continue low-dose Lovenox therapy twice daily. Given that the patient does have a baseline cardiomyopathy with reduced ejection fraction, recommend continuing diuretics as tolerated by hemodynamics and renal function. 2. GONZALO on BiPAP Continue nocturnal BiPAP therapy per home regimen. 3. Morbid obesity/CKD stage III/hypertension Complicates care, management, recovery and prognosis. Continue home medications as indicated. This note was generated with [employer] dictation software. It may contain incorrect words, spelling, and punctuation that were not noted in checking the note before signing. Inpatient E&M: 25222 Subs Hosp L2
--- NOTE | 2020-07-16 16:22 | PCM.PN.HOSP ---
Patient Problems: Active and Suspected Problems (Last Reviewed 11/29/19 @ 15:[address] Robson Burgess MD) COVID-19 virus infection (Acute) Hypoxia (Acute) Subjective: Pt states that he is feeling well and really has been able to wean O2 but is frustrated he is not getting better faster. I reassured him that this will take time and he is doing well. Vitals/I&O's: Vital Signs Temp Pulse Resp BP Pulse Ox 97.8 F 84 17 118/73 93 07/16/20 14:47 07/16/20 15:00 07/16/20 14:47 07/16/20 14:47 07/16/20 15:01 Oxygen Flow Rate (L/min) 6 Oxygen Delivery Method Nasal Cannula Weight: 134 kg Body Mass Index (BMI) 41.5 Intake and Output for Last 24 Hours 07/14/20 07/15/20 07/16/20 23:59 23:59 23:59 Intake Total 250 / 250 250 / 550 910 / 910 Output Total 1600 / 1600 1410 / 2260 2049 Balance -1350 / -1350 -1160 / -1710 -1140 / -1140 General: Alert, Oriented x3, Cooperative, No apparent distress, Well developed, Well nourished, - - Obese WM sitting up in a chair, appears well, comfortable Oral: Moist Mucosa, - - no thrush Lungs: No rhonchi, No wheeze, Diminished, Rales - B Bases Cardiovascular: Regular rate, Regular Rhythm, Normal S1, Normal S2, No murmurs, No Ectopic Activity, No rub noted, No Gallop Abdomen: Bowel Sounds Present, Soft, Non Tender, Non-Distended, No Hepato-splenomegaly, Obese, No hernias noted Extremities: No clubbing, No cyanosis, No edema, Capillary Refill Less than 3 Seconds, Peripheral Pulses Normal Neurological: Cranial nerves II-XII grossly intact, Neuro grossly intact Psych/Mental Status: Normal Affect, Appropriate Microbiology Past 72 Hours 07/12/20 12:35 Blood Culture (Wb) - Left Hand Blood Culture - Preliminary No growth in 48 hours. 07/12/20 12:15 Blood Culture (Wb) - Left Forearm Blood Culture - Preliminary No growth in 48 hours. Laboratory Results 07/15/20 18:49: WBC 8.6, RBC 5.23, Hgb 14.7, Hct 44.9, MCV 85.9, MCH 28.1, MCHC 32.7, RDW Std Deviation 44.2 H, RDW Coeff of Kathy 14.1, Plt Count 330, MPV 10.2, Immature Gran % (Auto) 1.000 H, Neut % (Auto) 86.3 H, Lymph % (Auto) 8.2 L, [place] % (Auto) 4.2, Eos % (Auto) 0.0, Baso % (Auto) 0.3, Absolute Neuts (auto) 7.4, Absolute Lymphs (auto) 0.71 L, Nucleated RBC % 0, Differential Comment SCANNED 07/15/20 18:49: Sodium 133 L, Potassium 4.2, Chloride 101, Carbon Dioxide 27.0, Anion Gap 5, BUN 30 H, Creatinine 1.33 H, Estim Creat Clear Calc 67.26, Est GFR (MDRD) Af Amer 71, Est GFR (MDRD) Non-Af 59 L, BUN/Creatinine Ratio 22.6 H, Glucose 248 H, Calcium 9.7 Current Medications Acetaminophen (Acetaminophen 325 Mg Tablet) 650 mg PO Q6H PRN PRN PRN Reason: Pain Score 1-10/Temp > 100.7 F Last Admin: 07/12/20 22:46 Dose: 650 mg Documented by: Al Hydroxide/Mg Hydroxide (Mag Hydrox/Al Hydrox/Simeth 30 Ml Udc) 30 ml PO Q6H PRN PRN PRN Reason: Gastric Burning Albuterol Sulfate (Albuterol 2.5 Mg/3 Ml Vial.Neb.) 2.5 mg INHALATION Q2H PRN PRN PRN Reason: Shortness of Breath/Wheezing Albuterol/Ipratropium (Ipratropium/Albuterol Sulfate 3 Ml Ampul.Neb) 3 ml INHALATION Q4HWA.RT [facility] Last Admin: 07/16/20 14:27 Dose: 3 ml Documented by: Dexamethasone (Dexamethasone 4 Mg Tablet) 6 mg PO DAILY [facility] Last Admin: 07/16/20 08:49 Dose: 6 mg Documented by: Enoxaparin Sodium (Enoxaparin 40 Mg/0.4 Ml Syringe) 40 mg SC BID [facility] Last Admin: 07/16/20 08:50 Dose: 40 mg Documented by: Furosemide (Furosemide 80 Mg Tablet) 80 mg PO DAILY [facility] Lisinopril (Lisinopril 5 Mg Tablet) 5 mg PO DAILY [facility] Last Admin: 07/16/20 08:50 Dose: 5 mg Documented by: Loratadine (Loratadine 10 Mg Tablet) 10 mg PO DAILY [facility] Last Admin: 07/16/20 08:50 Dose: 10 mg Documented by: Metoprolol Succinate (Metoprolol(Xl)Succ 200 Mg Tablet) 200 mg PO DAILY [facility] Last Admin: 07/16/20 08:51 Dose: 200 mg Documented by: Multivitamins (Multivitamins,Therapeutic Tablet) 1 tablet PO DAILY [facility] Last Admin: 07/16/20 08:50 Dose: 1 tablet Documented by: Ondansetron HCl (Ondansetron 4 Mg/2 Ml Vial) 4 mg IV Q8H PRN PRN PRN Reason: NAUSEA/VOMITING Pantoprazole Sodium (Pantoprazole Sodium 20 Mg Tablet) 20 mg PO DAILY [facility] Last Admin: 07/16/20 08:49 Dose: 20 mg Documented by: Potassium Chloride (Potassium Chloride 20 Meq Tablet) 20 meq PO BID@1000,1700 [facility] Last Admin: 07/16/20 08:50 Dose: 20 meq Documented by: Psyllium Hydrophilic Mucilloid (Psyllium 1 Packet) 1 packet PO DAILY PRN PRN PRN Reason: Constipation Senna/Docusate Sodium (Senna/Docusate Sodium 1 Tablet) 2 tablet PO BID PRN PRN PRN Reason: Constipation Sodium Chloride (0.9% Saline Lock 10 Ml Syringe) 10 - 40 ml IV UD PRN PRN Reason: SALINE FLUSH Last Admin: 07/14/20 09:06 Dose: 10 ml Documented by: Spironolactone (Spironolactone 25 Mg Tablet) 12.5 mg PO DAILY [facility] Last Admin: 07/16/20 08:50 Dose: 12.5 mg Documented by: STROKE Vital Signs/Narrative: Vital Signs Temp Pulse Resp BP Pulse Ox 07/16/20 15:01 93 07/16/20 15:00 84 07/16/20 14:47 97.8 F 74 17 118/73 93 07/16/20 14:31 68 22 H Medical Necessity - Tobacco Use Smoking Status: Former smoker Tobacco Use: Non-smoker Assessment/Plan All Active Problems (Last Reviewed 11/29/19 @ 15:[address] Robson Burgess MD) COVID-19 virus infection (Acute) Hypoxia (Acute) Acute systolic heart failure (Resolved) Acute Hypoxic Respiratory Failure 2/2 to COVID-19 PNA -continue Decadron day 11/22/Remdesivir day 11/17 -no convalescent plasma per pt requests -continue anticoagulation -BIPAP with sleep -off AIRVO and now on 6 l HFNC and weaning as able -Pulm following HFrEF-compensated -continue home meds except for ACEI -decrease lasix from 40 BID to home dose of 80 daily GONZALO -BIPAP at HS Mild Hyponatremia -relatively stable -decrease Lasix dose -BMP in am Hyperglycemia 2/2 steroids -monitor need for SSI TIFF on CKD stage 3 -reduce lasix dose by 50% -repeat BMP in am -at baseline -monitor -ACEI remains on hold GERD -PPI HTN -continue home meds except for ACEI (5mg lisinopril) MO -recommend wgt loss DVT prophylaxis -LMWH 40 mg BID Code status -Full Inpatient E&M: 57830 Subs Hosp L2
[2020-07-17] VITALS (17 sets, daily range): BP systolic 109–135; BP diastolic 47–84; PULSE 46–94; RESP 12–26; TEMP 36.2–37; O2SAT 91–96
[2020-07-17] MEDS: Ipratropium/Albuterol Sulfate 3 ML AMPUL.NEB INHALATION ×4 (07:26→19:35)
[2020-07-17] MEDS: Enoxaparin 40 MG/0.4 ML Syringe SC ×2 (08:20→19:55)
[2020-07-17] MEDS: Multivitamins,Therapeutic Tablet 1 TABLET PO (08:21)
[2020-07-17] MEDS: dexAMETHasone 4 MG Tablet 6 MG PO (08:21)
[2020-07-17] MEDS: Lisinopril 5 MG Tablet PO (08:21)
[2020-07-17] MEDS: Metoprolol(XL)Succ 200 MG Tablet PO (08:21)
[2020-07-17] MEDS: Furosemide 80 MG Tablet PO (08:21)
[2020-07-17] MEDS: Loratadine 10 MG Tablet PO (08:22)
[2020-07-17] MEDS: Spironolactone 25 MG Tablet 12.5 MG PO (08:23)
[2020-07-17] MEDS: Pantoprazole Sodium 20 MG Tablet PO (08:29)
--- NOTE | 2020-07-17 15:21 | PCM.PN.HOSP ---
Patient Problems: Active and Suspected Problems (Last Reviewed 11/29/19 @ 15:[address] Robson Burgess MD) COVID-19 virus infection (Acute) Hypoxia (Acute) Subjective: Pt had some desaturation overnight and required an increase of HFNC to 15 L but now back to 7 L. States he feels ok and just wants to go home. No complaints. Vitals/I&O's: Vital Signs Temp Pulse Resp BP Pulse Ox 98.6 F 94 20 H 135/71 H 95 07/17/20 10:30 07/17/20 14:07 07/17/20 14:07 07/17/20 08:18 07/17/20 14:07 Oxygen Flow Rate (L/min) 7 Oxygen Delivery Method Nasal Cannula Weight: 134.4 kg Body Mass Index (BMI) 41.5 Intake and Output for Last 24 Hours 07/15/20 07/16/20 07/17/20 23:59 23:59 23:59 Intake Total 250 / 550 910 / 1410 1180 / 1180 Output Total 1410 / 2260 2900 / 3300 1050 / 1050 Balance -1160 / -1710 -1989 / 1890 130 / 130 General: Alert, Oriented x3, Cooperative, No apparent distress, Well developed, Well nourished Oral: Moist Mucosa, No Gingival or Mucosal Lesions/ Ulcerations, - - no thrush Lungs: No rhonchi, No wheeze, Diminished, Rales - few scattered at bases Cardiovascular: Regular rate, Regular Rhythm, Normal S1, Normal S2, No murmurs, No Ectopic Activity, No rub noted, No Gallop Abdomen: Bowel Sounds Present, Soft, Non Tender, Non-Distended, No Hepato-splenomegaly, Obese Extremities: No clubbing, No cyanosis, No edema, Capillary Refill Less than 3 Seconds, Peripheral Pulses Normal Neurological: Cranial nerves II-XII grossly intact, Neuro grossly intact Psych/Mental Status: Normal Affect, Appropriate Microbiology Past 72 Hours 07/12/20 12:35 Blood Culture (Wb) - Left Hand Blood Culture - Final No growth in 5 days. 07/12/20 12:15 Blood Culture (Wb) - Left Forearm Blood Culture - Final No growth in 5 days. Current Medications Acetaminophen (Acetaminophen 325 Mg Tablet) 650 mg PO Q6H PRN PRN PRN Reason: Pain Score 1-10/Temp > 100.7 F Last Admin: 07/12/20 22:46 Dose: 650 mg Documented by: Al Hydroxide/Mg Hydroxide (Mag Hydrox/Al Hydrox/Simeth 30 Ml Udc) 30 ml PO Q6H PRN PRN PRN Reason: Gastric Burning Albuterol Sulfate (Albuterol 2.5 Mg/3 Ml Vial.Neb.) 2.5 mg INHALATION Q2H PRN PRN PRN Reason: Shortness of Breath/Wheezing Albuterol/Ipratropium (Ipratropium/Albuterol Sulfate 3 Ml Ampul.Neb) 3 ml INHALATION Q4HWA.RT [facility] Last Admin: 07/17/20 14:06 Dose: 3 ml Documented by: Dexamethasone (Dexamethasone 4 Mg Tablet) 6 mg PO DAILY [facility] Last Admin: 07/17/20 08:21 Dose: 6 mg Documented by: Enoxaparin Sodium (Enoxaparin 40 Mg/0.4 Ml Syringe) 40 mg SC BID [facility] Last Admin: 07/17/20 08:20 Dose: 40 mg Documented by: Furosemide (Furosemide 80 Mg Tablet) 80 mg PO DAILY [facility] Last Admin: 07/17/20 08:21 Dose: 80 mg Documented by: Lisinopril (Lisinopril 5 Mg Tablet) 5 mg PO DAILY [facility] Last Admin: 07/17/20 08:21 Dose: 5 mg Documented by: Loratadine (Loratadine 10 Mg Tablet) 10 mg PO DAILY [facility] Last Admin: 07/17/20 08:22 Dose: 10 mg Documented by: Metoprolol Succinate (Metoprolol(Xl)Succ 200 Mg Tablet) 200 mg PO DAILY [facility] Last Admin: 07/17/20 08:21 Dose: 200 mg Documented by: Multivitamins (Multivitamins,Therapeutic Tablet) 1 tablet PO DAILY [facility] Last Admin: 07/17/20 08:21 Dose: 1 tablet Documented by: Ondansetron HCl (Ondansetron 4 Mg/2 Ml Vial) 4 mg IV Q8H PRN PRN PRN Reason: NAUSEA/VOMITING Pantoprazole Sodium (Pantoprazole Sodium 20 Mg Tablet) 20 mg PO DAILY [facility] Last Admin: 07/17/20 08:29 Dose: 20 mg Documented by: Potassium Chloride (Potassium Chloride 20 Meq Tablet) 20 meq PO BID@1000,1700 [facility] Last Admin: 07/17/20 08:21 Dose: 20 meq Documented by: Psyllium Hydrophilic Mucilloid (Psyllium 1 Packet) 1 packet PO DAILY PRN PRN PRN Reason: Constipation Senna/Docusate Sodium (Senna/Docusate Sodium 1 Tablet) 2 tablet PO BID PRN PRN PRN Reason: Constipation Sodium Chloride (0.9% Saline Lock 10 Ml Syringe) 10 - 40 ml IV UD PRN PRN Reason: SALINE FLUSH Last Admin: 07/14/20 09:06 Dose: 10 ml Documented by: Spironolactone (Spironolactone 25 Mg Tablet) 12.5 mg PO DAILY [facility] Last Admin: 07/17/20 08:23 Dose: 12.5 mg Documented by: STROKE Vital Signs/Narrative: Vital Signs Pulse Resp Pulse Ox 07/17/20 14:07 94 20 H 95 Medical Necessity - Tobacco Use Smoking Status: Former smoker Tobacco Use: Non-smoker Assessment/Plan All Active Problems (Last Reviewed 11/29/19 @ 15:[address] Robson Burgess MD) COVID-19 virus infection (Acute) Hypoxia (Acute) Acute systolic heart failure (Resolved) Acute Hypoxic Respiratory Failure 2/2 to COVID-19 PNA -continue Decadron day 12/22/Remdesivir day 12/17 -no convalescent plasma per pt requests -continue anticoagulation -BIPAP with sleep -had some issues overnight with desaturations and HFNC to 15 L and now back to 7 L -wean as able -Pulm following HFrEF-compensated -continue home meds except for ACEI -continue lasix home dose of 80 daily GONZALO -BIPAP at HS Mild Hyponatremia -relatively stable -decrease Lasix dose -BMP in am Hyperglycemia 2/2 steroids -monitor need for SSI TIFF on CKD stage 3 -repeat BMP in am -at baseline -monitor -ACEI remains on hold GERD -PPI HTN -continue home meds except for ACEI (5mg lisinopril) MO -recommend wgt loss DVT prophylaxis -LMWH 40 mg BID Code status -Full Inpatient E&M: 72629 Subs Hosp L2
[2020-07-18] VITALS (20 sets, daily range): BP systolic 108–128; BP diastolic 59–74; PULSE 52–82; RESP 16–20; TEMP 36.4–37.1; O2SAT 91–97
[2020-07-18] MEDS: Ipratropium/Albuterol Sulfate 3 ML AMPUL.NEB INHALATION ×4 (07:12→18:59)
--- NOTE | 2020-07-18 07:15 | PCM.PN.PUL ---
Patient Problems: Active and Suspected Problems (Last Reviewed 11/29/19 @ 15:[address] Robson Burgess MD) COVID-19 virus infection (Acute) Hypoxia (Acute) Subjective: The patient was seen and examined at the bedside this morning. Events from the last 24 hours have been reviewed. The patient is currently afebrile, hemodynamically stable and maintaining appropriate oxygen saturations on 5 L/min via nasal cannula. The patient has completed a treatment course of remdesivir. He remains on Decadron along with daily Lasix. Oxygenation status continues to improve. Objective: The patient's most recent lab work, culture data and imaging studies have all been personally reviewed. Surface echocardiogram dated August 2016 revealed a moderately dilated LV with an ejection fraction of 15%. - Physical Exam Vitals/I&O's: Vital Signs Temp Pulse Resp BP Pulse Ox 98.3 F 52 L 19 H 123/65 H 96 07/18/20 03:22 07/18/20 06:44 07/18/20 03:22 07/18/20 03:22 07/18/20 06:44 Oxygen Flow Rate (L/min) 6 Oxygen Delivery Method CPAP Weight: 294 lb 8.601 oz Body Mass Index (BMI) 41.5 Intake and Output for Last 24 Hours 07/16/20 07/17/20 07/18/20 23:59 23:59 23:59 Intake Total 910 / 1410 1180 / 1180 240 / 240 Output Total 2900 / 3300 1775 / 1775 Balance -1990 / -1890 -595 / -595 240 / 240 General: Alert, Cooperative, No apparent distress HEENT: Atraumatic, Normocephalic Oral: No Gingival or Mucosal Lesions/ Ulcerations Neck: Supple, No Nodes, Trachea Midline Lungs: No rhonchi, No wheeze, No rales, Diminished Cardiovascular: Regular rate, Regular Rhythm Abdomen: Bowel Sounds Present, Soft, Non Tender, Obese Extremities: No clubbing, No cyanosis, No edema Skin: No breakdown Musculoskeletal: No Tenderness to Palpation of Joints or Extremities Lymphatic: No Cervical, Supraclavicular, or Inguinal Adenopathy Neurological: Cranial nerves II-XII grossly intact, Neuro grossly intact Psych/Mental Status: Normal Affect, Appropriate Microbiology 07/12/20 12:35 Blood Culture (Wb) - Left Hand Blood Culture - Final No growth in 5 days. 07/12/20 12:15 Blood Culture (Wb) - Left Forearm Blood Culture - Final No growth in 5 days. Clinical Impression(s) from Imaging Studies Chest X-Ray 07/12/20 12:20 IMPRESSION: Increasing multilobar (upper lobe dominance) pulmonary infiltrate suggesting pneumonia, including viral causes. Electronically Signed: Samy Paiz MD (Brooks) at 13:17 EST , Service support , Chest CTA 07/12/20 13:54 IMPRESSION: Patchy bilateral groundglass densities and and airspace disease likely multilevel pneumonia. Enlarged right hilar lymph node. No evidence for acute pulmonary embolism or aortic dissection. Electronically Signed: Nash Aguilar, at 14:27 EST Tel , Service support , Current Medications Acetaminophen (Acetaminophen 325 Mg Tablet) 650 mg PO Q6H PRN PRN PRN Reason: Pain Score 1-10/Temp > 100.7 F Last Admin: 07/12/20 22:46 Dose: 650 mg Documented by: Al Hydroxide/Mg Hydroxide (Mag Hydrox/Al Hydrox/Simeth 30 Ml Udc) 30 ml PO Q6H PRN PRN PRN Reason: Gastric Burning Albuterol Sulfate (Albuterol 2.5 Mg/3 Ml Vial.Neb.) 2.5 mg INHALATION Q2H PRN PRN PRN Reason: Shortness of Breath/Wheezing Albuterol/Ipratropium (Ipratropium/Albuterol Sulfate 3 Ml Ampul.Neb) 3 ml INHALATION Q4HWA.RT [facility] Last Admin: 07/18/20 07:12 Dose: 3 ml Documented by: Dexamethasone (Dexamethasone 4 Mg Tablet) 6 mg PO DAILY [facility] Last Admin: 07/17/20 08:21 Dose: 6 mg Documented by: Enoxaparin Sodium (Enoxaparin 40 Mg/0.4 Ml Syringe) 40 mg SC BID [facility] Last Admin: 07/17/20 19:55 Dose: 40 mg Documented by: Furosemide (Furosemide 80 Mg Tablet) 80 mg PO DAILY [facility] Last Admin: 07/17/20 08:21 Dose: 80 mg Documented by: Lisinopril (Lisinopril 5 Mg Tablet) 5 mg PO DAILY [facility] Last Admin: 07/17/20 08:21 Dose: 5 mg Documented by: Loratadine (Loratadine 10 Mg Tablet) 10 mg PO DAILY [facility] Last Admin: 07/17/20 08:22 Dose: 10 mg Documented by: Metoprolol Succinate (Metoprolol(Xl)Succ 200 Mg Tablet) 200 mg PO DAILY [facility] Last Admin: 07/17/20 08:21 Dose: 200 mg Documented by: Multivitamins (Multivitamins,Therapeutic Tablet) 1 tablet PO DAILY [facility] Last Admin: 07/17/20 08:21 Dose: 1 tablet Documented by: Ondansetron HCl (Ondansetron 4 Mg/2 Ml Vial) 4 mg IV Q8H PRN PRN PRN Reason: NAUSEA/VOMITING Pantoprazole Sodium (Pantoprazole Sodium 20 Mg Tablet) 20 mg PO DAILY [facility] Last Admin: 07/17/20 08:29 Dose: 20 mg Documented by: Potassium Chloride (Potassium Chloride 20 Meq Tablet) 20 meq PO BID@1000,1700 [facility] Last Admin: 07/17/20 16:39 Dose: 20 meq Documented by: Psyllium Hydrophilic Mucilloid (Psyllium 1 Packet) 1 packet PO DAILY PRN PRN PRN Reason: Constipation Senna/Docusate Sodium (Senna/Docusate Sodium 1 Tablet) 2 tablet PO BID PRN PRN PRN Reason: Constipation Sodium Chloride (0.9% Saline Lock 10 Ml Syringe) 10 - 40 ml IV UD PRN PRN Reason: SALINE FLUSH Last Admin: 07/14/20 09:06 Dose: 10 ml Documented by: Spironolactone (Spironolactone 25 Mg Tablet) 12.5 mg PO DAILY [facility] Last Admin: 07/17/20 08:23 Dose: 12.5 mg Documented by: Medical Necessity - Tobacco Use Smoking Status: Former smoker Tobacco Use: Non-smoker Assessment/Plan All Active Problems (Last Reviewed 11/29/19 @ 15:[address] Robson Burgess MD) COVID-19 virus infection (Acute) Hypoxia (Acute) Acute systolic heart failure (Resolved) RECOMMENDATIONS: 1. Continue steroids and anticoagulation. 2. Wean supplemental oxygen to maintain saturations at or above 90%. 3. Continue nocturnal BiPAP therapy. 4. Continue diuresis as tolerated by hemodynamics and renal function. 5. Encourage incentive spirometer use and mobilize patient as tolerated. IMPRESSIONS: 1. Acute hypoxic respiratory failure secondary to COVID-19 pneumonia Plan to continue current supportive measures with supplemental oxygen to maintain saturations at or above 90%. The patient has completed a treatment course of remdesivir and remains on Decadron. CTA showed no evidence for pulmonary embolism. Therefore, continue low-dose Lovenox therapy twice daily. Given that the patient does have a baseline cardiomyopathy with reduced ejection fraction, recommend continuing diuretics as tolerated by hemodynamics and renal function. 2. GONZALO on BiPAP Continue nocturnal BiPAP therapy per home regimen. 3. Morbid obesity/CKD stage III/hypertension Complicates care, management, recovery and prognosis. Continue home medications as indicated. This note was generated with [employer] dictation software. It may contain incorrect words, spelling, and punctuation that were not noted in checking the note before signing. Inpatient E&M: 37421 Subs Hosp L2
[2020-07-18 07:53] LABS: Absolute Lymphocyte Count 0.98 X10^3/uL (0.83-4.51); Absolute Neutrophil Count 6.6 X10^3/uL (2.0-7.7); Basophil# 0.01 X10^3/uL; Basophil% 0.1 % (0-1); Eosinophil# 0.08 X10^3/uL; Hematocrit 40.4 % (40-54); Lymphocyte # 0.98 X10^3/ul (4.0); Lymphocyte % 11.8 % (19-41); Mean Corp Hgb Conc 32.2 g/dL (32-36); Mean Corpuscular Hgb 27.4 pg (27.0-32.0); Mean Corpuscular Volume 85.2 fL (80-94); Mean Platelet Vol. 9.7 fl (6.2-12.0); Monocyte# 0.56 X10^3/uL; Monocyte% 6.7 % (0-10); NRBC Flagged by Analyzer 0 % (0-5); Neutrophil % 79.3 % (47-70); Platelet Count 256 K/mm3 (150-450); RBC Distribution Width CV 13.7 % (11.6-14.6); RBC Distribution Width SD 42.9 fl (35.1-43.9); Red Blood Count 4.74 M/mm3 (4.6-6.2); White Blood Count 8.3 K/mm3 (4.4-11.0)
[2020-07-18 08:20] LABS: ALB/GLOB Ratio 0.7 RATIO (0.9-2.4); AST(SGOT) 31 U/L (15-37); Alanine Aminotransfer ALT/SGPT 110 U/L (16-61); Albumin, Serum 2.8 g/dL (3.2-5.0); Alkaline Phosphatase 55 U/L (45-117); Anion Gap 5 (5-15); BUN 20 mg/dL (7-18); BUN/Creat Ratio 22.4 RATIO (10-20); Calcium,Total 9.1 mg/dL (8.5-10.1); Chloride 104 mmol/L (98-107); Creatinine, Serum 0.89 mg/dL (0.70-1.30); EST Glomerular Filtration Rate 93 mL/min (>60); Est Glom Filt Rate - Afr Amer 113 mL/min (>60); Estimated Creatinine Clearance 100.51 ml/min; Globulin 4.2 g/dL (2.2-4.2); Glucose 117 mg/dL (74-106); Potassium 4.1 mmol/L (3.5-5.1); Sodium Level 136 mmol/L (136-145)
[2020-07-18] MEDS: dexAMETHasone 4 MG Tablet 6 MG PO (09:18)
[2020-07-18] MEDS: Loratadine 10 MG Tablet PO (09:19)
[2020-07-18] MEDS: Furosemide 80 MG Tablet PO (09:19)
[2020-07-18] MEDS: Spironolactone 25 MG Tablet 12.5 MG PO (09:19)
[2020-07-18] MEDS: Enoxaparin 40 MG/0.4 ML Syringe SC ×2 (09:21→20:25)
[2020-07-18] MEDS: Multivitamins,Therapeutic Tablet 1 TABLET PO (09:21)
[2020-07-18] MEDS: Metoprolol(XL)Succ 200 MG Tablet PO (09:21)
[2020-07-18] MEDS: Pantoprazole Sodium 20 MG Tablet PO (09:21)
[2020-07-18] MEDS: Lisinopril 5 MG Tablet PO (09:21)
--- NOTE | 2020-07-18 14:26 | NURSING ---
Care assumed at this time from Rg Toscano RN.
--- NOTE | 2020-07-18 15:32 | NURSING ---
RNCM Note: Informed by Dr Natacha Avery that there needs clarification for patient oxygen as he does not have home O2 currently and out of network with [employer]. Called patient Elly Haskins. States that they were given home Oxygen when in the hospital the last time but [employer] told them they are not in Network with patient insurance and had to pick it up and they would have to find a company that is in network. Called [employer] [facility] and states that they had to pick oxygen up as they are not in network with patient insurance [facility] Community Plan ([employer]). Informed by other case finishing machine adjuster that [employer] is in network for patient insurance. Called Elly and informed of in network company and plan. Green Sheet for oxygen coordination placed in patient hard chart for possible DC home tomorrow per Dr Avery. No further issues identified at this time. Nona Raza, YULIACM
--- NOTE | 2020-07-18 15:53 | PN_ITS ---
Patient Problems: Active and Suspected Problems (Last Reviewed 11/29/19 @ 15:[address] Robson Burgess MD) COVID-19 virus infection (Acute) Hypoxia (Acute) Subjective: Down to 4 L today with SpO2 stable at rest. Feels well and pt is determined to come home tomorrow. Vitals/I&O's: Vital Signs Temp Pulse Resp BP Pulse Ox 97.6 F L 75 19 H 108/69 93 07/18/20 12:51 07/18/20 15:33 07/18/20 14:26 07/18/20 12:51 07/18/20 14:37 Oxygen Flow Rate (L/min) 4 Oxygen Delivery Method Nasal Cannula Weight: 133.6 kg Body Mass Index (BMI) 41.5 Intake and Output for Last 24 Hours 07/16/20 07/17/20 07/18/20 23:59 23:59 23:59 Intake Total 910 / 1410 1180 / 1180 240 / 240 Output Total 2900 / 3300 1775 / 1775 Balance -1990 / -1890 -595 / -595 240 / 240 General: Alert, Oriented x3, Cooperative, No apparent distress, Well developed, Well nourished, - - WM sitting up in a chair on a breathing treatment, very pleasant HEENT: Atraumatic, Normocephalic Oral: Moist Mucosa, No Gingival or Mucosal Lesions/ Ulcerations, - - no thrush Lungs: Clear to auscultation, No rhonchi, No wheeze, No rales, Diminished Cardiovascular: Regular rate, Regular Rhythm, Normal S1, Normal S2, No murmurs, No Ectopic Activity, No rub noted, No Gallop Abdomen: Bowel Sounds Present, Soft, Non Tender, Non-Distended, No Hepato-splenomegaly, Obese Extremities: No clubbing, No cyanosis, No edema, Capillary Refill Less than 3 Seconds, Peripheral Pulses Normal Neurological: Cranial nerves II-XII grossly intact, Neuro grossly intact Psych/Mental Status: Normal Affect, Appropriate Microbiology Past 72 Hours 07/12/20 12:35 Blood Culture (Wb) - Left Hand Blood Culture - Final No growth in 5 days. 07/12/20 12:15 Blood Culture (Wb) - Left Forearm Blood Culture - Final No growth in 5 days. Laboratory Results 07/18/20 07:14: WBC 8.3, RBC 4.74, Hgb 13.0, Hct 40.4, MCV 85.2, MCH 27.4, MCHC 32.2, RDW Std Deviation 42.9, RDW Coeff of Kathy 13.7, Plt Count 256, MPV 9.7, Immature Gran % (Auto) 1.100 H, Neut % (Auto) 79.3 H, Lymph % (Auto) 11.8 L, [place] % (Auto) 6.7, Eos % (Auto) 1.0, Baso % (Auto) 0.1, Absolute Neuts (auto) 6.6, Absolute Lymphs (auto) 0.98, Nucleated RBC % 0 07/18/20 07:14: Sodium 136, Potassium 4.1, Chloride 104, Carbon Dioxide 27.0, Anion Gap 5, BUN 20 H, Creatinine 0.89, Estim Creat Clear Calc 100.51, Est GFR (MDRD) Af Amer 113, Est GFR (MDRD) Non-Af 93, BUN/Creatinine Ratio 22.4 H, Glucose 117 H, Calcium 9.1, Total Bilirubin 0.70, AST 31, ALT 110 H, Alkaline Phosphatase 55, Total Protein 7.0, Albumin 2.8 L, Globulin 4.2, Albumin/Globulin Ratio 0.7 L Current Medications Acetaminophen (Acetaminophen 325 Mg Tablet) 650 mg PO Q6H PRN PRN PRN Reason: Pain Score 1-10/Temp > 100.7 F Last Admin: 07/12/20 22:46 Dose: 650 mg Documented by: Al Hydroxide/Mg Hydroxide (Mag Hydrox/Al Hydrox/Simeth 30 Ml Udc) 30 ml PO Q6H PRN PRN PRN Reason: Gastric Burning Albuterol Sulfate (Albuterol 2.5 Mg/3 Ml Vial.Neb.) 2.5 mg INHALATION Q2H PRN PRN PRN Reason: Shortness of Breath/Wheezing Albuterol/Ipratropium (Ipratropium/Albuterol Sulfate 3 Ml Ampul.Neb) 3 ml INHALATION Q4HWA.RT [facility] Last Admin: 07/18/20 14:26 Dose: 3 ml Documented by: Dexamethasone (Dexamethasone 4 Mg Tablet) 6 mg PO DAILY [facility] Last Admin: 07/18/20 09:18 Dose: 6 mg Documented by: Enoxaparin Sodium (Enoxaparin 40 Mg/0.4 Ml Syringe) 40 mg SC BID [facility] Last Admin: 07/18/20 09:21 Dose: 40 mg Documented by: Furosemide (Furosemide 80 Mg Tablet) 80 mg PO DAILY [facility] Last Admin: 07/18/20 09:19 Dose: 80 mg Documented by: Lisinopril (Lisinopril 5 Mg Tablet) 5 mg PO DAILY [facility] Last Admin: 07/18/20 09:21 Dose: 5 mg Documented by: Loratadine (Loratadine 10 Mg Tablet) 10 mg PO DAILY [facility] Last Admin: 07/18/20 09:19 Dose: 10 mg Documented by: Metoprolol Succinate (Metoprolol(Xl)Succ 200 Mg Tablet) 200 mg PO DAILY [facility] Last Admin: 07/18/20 09:21 Dose: 200 mg Documented by: Multivitamins (Multivitamins,Therapeutic Tablet) 1 tablet PO DAILY [facility] Last Admin: 07/18/20 09:21 Dose: 1 tablet Documented by: Ondansetron HCl (Ondansetron 4 Mg/2 Ml Vial) 4 mg IV Q8H PRN PRN PRN Reason: NAUSEA/VOMITING Pantoprazole Sodium (Pantoprazole Sodium 20 Mg Tablet) 20 mg PO DAILY [facility] Last Admin: 07/18/20 09:21 Dose: 20 mg Documented by: Potassium Chloride (Potassium Chloride 20 Meq Tablet) 20 meq PO BID@1000,1700 [facility] Last Admin: 07/18/20 09:20 Dose: 20 meq Documented by: Psyllium Hydrophilic Mucilloid (Psyllium 1 Packet) 1 packet PO DAILY PRN PRN PRN Reason: Constipation Senna/Docusate Sodium (Senna/Docusate Sodium 1 Tablet) 2 tablet PO BID PRN PRN PRN Reason: Constipation Sodium Chloride (0.9% Saline Lock 10 Ml Syringe) 10 - 40 ml IV UD PRN PRN Reason: SALINE FLUSH Last Admin: 07/14/20 09:06 Dose: 10 ml Documented by: Spironolactone (Spironolactone 25 Mg Tablet) 12.5 mg PO DAILY [facility] Last Admin: 07/18/20 09:19 Dose: 12.5 mg Documented by: STROKE Vital Signs/Narrative: Vital Signs Temp Pulse Resp BP Pulse Ox 07/18/20 15:33 75 07/18/20 14:37 93 07/18/20 14:26 71 19 H 07/18/20 12:51 97.6 F L 71 19 H 108/69 96 07/18/20 12:48 71 20 H 96 Medical Necessity - Tobacco Use Smoking Status: Former smoker Tobacco Use: Non-smoker Assessment/Plan All Active Problems (Last Reviewed 11/29/19 @ 15:[address] Robson Burgess MD) COVID-19 virus infection (Acute) Hypoxia (Acute) Acute systolic heart failure (Resolved) Acute Hypoxic Respiratory Failure 2/2 to COVID-19 PNA -continue Decadron day 12/22 -Remdesivir completed -no convalescent plasma per pt requests -continue anticoagulation -BIPAP with sleep -now to 4 L nasal cannula -wean as able -Pulm following HFrEF-compensated -continue home meds except for ACEI -continue lasix home dose of 80 daily GONZALO -BIPAP at HS Mild Hyponatremia -resolved Hyperglycemia 2/2 steroids -monitor need for SSI TIFF on CKD stage 3 -repeat BMP in am -at baseline -monitor -ACEI remains on hold GERD -PPI HTN -continue home meds except for ACEI (5mg lisinopril) MO -recommend wgt loss DVT prophylaxis -LMWH 40 mg BID Code status -Full Inpatient E&M: 53650 Subs Hosp L2
[2020-07-19] VITALS (13 sets, daily range): BP systolic 115–136; BP diastolic 61–79; PULSE 50–81; RESP 15–21; TEMP 36.4–36.7; O2SAT 88–96
[2020-07-19 07:12] LABS: Absolute Lymphocyte Count 0.98 X10^3/uL (0.83-4.51); Absolute Neutrophil Count 7.1 X10^3/uL (2.0-7.7); Eosinophils% 1.1 % (0-5); Hematocrit 40.3 % (40-54); Lymphocyte # 0.98 X10^3/ul (4.0); Mean Corp Hgb Conc 32.3 g/dL (32-36); Mean Corpuscular Hgb 27.5 pg (27.0-32.0); Mean Corpuscular Volume 85.2 fL (80-94); Mean Platelet Vol. 9.9 fl (6.2-12.0); Monocyte# 0.64 X10^3/uL; Monocyte% 7.2 % (0-10); NRBC Flagged by Analyzer 0 % (0-5); Neutrophil # 7.09 X10^3/uL (2.7-7.7); Neutrophil % 79.6 % (47-70); Platelet Count 278 K/mm3 (150-450); RBC Distribution Width CV 13.6 % (11.6-14.6); RBC Distribution Width SD 42.5 fl (35.1-43.9); Red Blood Count 4.73 M/mm3 (4.6-6.2); White Blood Count 8.9 K/mm3 (4.4-11.0)
[2020-07-19] MEDS: Ipratropium/Albuterol Sulfate 3 ML AMPUL.NEB INHALATION ×3 (07:15→13:45)
[2020-07-19 07:53] LABS: ALB/GLOB Ratio 0.7 RATIO (0.9-2.4); AST(SGOT) 22 U/L (15-37); Alanine Aminotransfer ALT/SGPT 95 U/L (16-61); Albumin, Serum 2.8 g/dL (3.2-5.0); Alkaline Phosphatase 57 U/L (45-117); Anion Gap 5 (5-15); BUN 20 mg/dL (7-18); BUN/Creat Ratio 24.3 RATIO (10-20); Chloride 104 mmol/L (98-107); Creatinine, Serum 0.82 mg/dL (0.70-1.30); EST Glomerular Filtration Rate 102 mL/min (>60); Est Glom Filt Rate - Afr Amer 124 mL/min (>60); Estimated Creatinine Clearance 109.09 ml/min; Globulin 4.3 g/dL (2.2-4.2); Glucose 131 mg/dL (74-106); Protein, Total 7.1 g/dL (6.4-8.2); Sodium Level 135 mmol/L (136-145)
[2020-07-19] MEDS: Lisinopril 5 MG Tablet PO (08:25)
[2020-07-19] MEDS: Multivitamins,Therapeutic Tablet 1 TABLET PO (08:25)
[2020-07-19] MEDS: dexAMETHasone 4 MG Tablet 6 MG PO (08:25)
[2020-07-19] MEDS: Metoprolol(XL)Succ 200 MG Tablet PO (08:26)
[2020-07-19] MEDS: Furosemide 80 MG Tablet PO (08:26)
[2020-07-19] MEDS: Pantoprazole Sodium 20 MG Tablet PO (08:26)
[2020-07-19] MEDS: Enoxaparin 40 MG/0.4 ML Syringe SC (08:26)
[2020-07-19] MEDS: Loratadine 10 MG Tablet PO (08:27)
[2020-07-19] MEDS: Spironolactone 25 MG Tablet 12.5 MG PO (08:27)
--- NOTE | 2020-07-19 12:50 | NURSING ---
PT CALLED [facility] [employer] [facility] TO INFORM THEM PT IS DISCHARGED, THEY STATED THEY WILL BE CALLING US BACK
--- NOTE | 2020-07-19 14:21 | NURSING ---
CALLED [employer], ANSWER SERV STATED THAT THEY WILL BE CALLING BACK WITH INFO.
--- NOTE | 2020-07-19 15:10 | NURSING ---
CALLED [employer] STATED DID NOT GET THE FAX, REFAXED PAPERWORK TO DIFFERENT NUMBER AND THE TRAVELING AUDITOR SHOULD BE RETURNING CALL.
--- NOTE | 2020-07-19 15:17 | PCM.DC ---
- Discharge Diagnoses Current Active Problems: Current Active and Chronic Problems (Last Reviewed 11/29/19 @ 15:[address] Robson Burgess MD) COVID-19 virus infection (Acute) Hypoxia (Acute) Nonischemic cardiomyopathy (Chronic) Chronic systolic (congestive) heart failure (Chronic) Essential hypertension (Chronic) Morbid obesity due to excess calories (Chronic) Obstructive sleep apnea (Chronic) You will use the following diet at home:: No restrictions Your food should be the consistency of: Regular Your liquids should be the consistency of: Regular/Thin Discharge Activity: Return to Normal Activity Weight Bearing Status: Full weight bearing Additional Instructions: USE OXYGEN AT FOUR LITERS PER MINUTE CONTINUOUSLY Allergies/Adverse Reactions: Allergies naproxen Adverse Reaction (Severe, Verified 07/12/20 12:16) rectal bleeding codeine Adverse Reaction (Intermediate, Verified 07/12/20 12:16) Anxiety (wired) Medications to take at Discharge RX: Loratadine [Claritin] 10 mg PO DAILY 07/02/16 acetaminophen 500 mg tablet See Rx Instructions PO BID PRN tab 10/06/17 multivitamin 1 tab PO QDAY 10/07/17 fluticasone propionate 50 mcg/actuation nasal spray,suspension 1 spray INTRANASAL BID PRN 11/29/19 lisinopril 5 mg tablet 5 mg PO QDAY #90 tab 11/29/19 metoprolol succinate 200 mg tablet,extended release 24 hr 200 mg PO DAILY #90 tab 11/29/19 omeprazole 20 mg capsule,delayed release 20 mg PO DAILY #90 cap 11/29/19 potassium chloride 20 mEq tablet,extended release 20 meq PO BID #180 tab 11/29/19 spironolactone 25 mg tablet 12.5 mg PO DAILY #45 tab 11/29/19 RX: Furosemide [Lasix] 80 mg PO DAILY 07/08/20 Primary Care Physician: Stu Richardson MD [Primary Care Provider] - Please follow up with your Primary Care Physician in: IN ONE WEEK Test Results: Test results from this visit will be discussed in further detail at your follow-up appointment, if applicable.
--- NOTE | 2020-07-19 15:46 | NURSING ---
CALLED TO CONFIRM THAT [facility] [employer] [facility] RECEIVED FAX. SERVICE STATED THEY DID AND THEY HAD 2 MORE PEOPLE BEFORE US, AND THEY WOULD CALL US WITH TIME OF DELIVERY OF O2.
--- NOTE | 2020-07-19 17:18 | NURSING ---
CALLED [facility] [employer] [facility] FOR TIME THAT O2 TANK WILL BE DELIVERED. THE METAL PRECISION MACHINE ASSEMBLERSEWING TEACHER DID NOT MEDICAL PAYMENT POSTER CALL, THE ANSWER SERVICE WILL CONTINUE TO TRY TO GET A HOLD OF THEM.
--- NOTE | 2020-07-19 17:51 | CASEMGMT ---
SOCIAL WORK Received call from nurseTrang. Per nurse, has made multiple attempts to contact home [employer] company for portable tank as patient was discharged this morning. Telephone call to [employer] . After lengthy time on hold, worker reports tank truck driver is 15-20 minutes away from hospital with portable tank. NurseTrang, TIMBER MANAGEMENT PROFESSOR, HANDLE ASSEMBLER
--- NOTE | 2020-07-20 16:08 | DS.PCM_ITS ---
Discharge Date and Diagnosis - Problem List Patient Problems: Active and Suspected Problems (Last Reviewed 11/29/19 @ 15:[address] Robson Burgess MD) COVID-19 virus infection (Acute) Hypoxia (Acute) Date of Admission: 07/12/20 Date of Discharge: 07/19/20 - Primary Discharge Diagnosis Acute Problems: Active Problems (Last Reviewed 11/29/19 @ 15:[address] Robson Burgess MD) #1 COVID-19 pneumonia #2 acute hypoxic respiratory failure secondary to #1 #3 obstructive sleep apnea #4 chronic kidney disease stage III #5 essential hypertension #6 obstructive sleep apnea #7 chronic systolic congestive heart failure #8 ischemic cardiomyopathy Patient does not fit criteria for morbid obesity - Secondary Discharge Diagnosis Chronic Problems: Chronic Problems (Last Reviewed 11/29/19 @ 15:[address] Robson Burgess MD) Nonischemic cardiomyopathy (Chronic) Chronic systolic (congestive) heart failure (Chronic) Essential hypertension (Chronic) Morbid obesity due to excess calories (Chronic) Obstructive sleep apnea (Chronic) Hospital Course and Treatment Operations: None Procedures: None Summary of Care Provided: The patient is a 59 year old M seen in the emergency room at [facility] with a cough and shortness of breath that began 4 days prior. Patient tested positive for COVID-19 on July 08 by rapid antigen. Work-up in the emergency room included labs which were remarkable for BUN of 23, glucose of 159, calcium of 8.4, and a CTA of the chest showed patchy bilateral groundglass densities and airspace disease. No evidence of pulmonary embolism was noted. Patient was admitted to [place] [address] on high flow oxygen, he was placed on dexamethasone and was given remdesivir. Pulmonary medicine was consulted and assisted in his care. Patient's respiratory status improved slowly during his hospitalization, on 07/19/2020, patient was seen and examined: On examination he appeared in good health and spirits. Vital signs as documented. Skin warm and dry and without overt rashes. Neck without JVD, neck was supple, trachea midline, thyroid was normal. Lungs clear bilaterally, normal air movement was noted. Heart exam notable for regular rhythm, normal sounds and absence of murmurs, rubs or gallops. Abdomen unremarkable and without evidence of organomegaly, masses, or abdominal aortic enlargement. Bowel sounds are present, abdomen is not distended. Extremities nonedematous, no cyanosis was noted, no clubbing was noted. Neuro: Cranial nerves II through XII are grossly intact, no focal motor deficits were noted, sensation to light touch and pinprick intact, motor exam 5/5 throughout. Psych: Patient is alert and oriented x3, he does not appear anxious or depressed, he does not appear agitated. Patient appeared stable for discharge home on 07/19/2020, he required oxygen at 4 L when ambulating and at rest, he was expected to use oxygen during activities outside the home. Patient's pulse ox was 95% on 4 L nasal cannula at rest and ambulating, he was 88% pulse ox at rest on room air. Patient was discharged home in stable condition on 07/19/2020. Patient Problems: Active and Suspected Problems (Last Reviewed 11/29/19 @ 15:[address] Robson Burgess MD) COVID-19 virus infection (Acute) Hypoxia (Acute) - Physical Exam Vitals/I&O's: Vital Signs Temp Pulse Resp BP Pulse Ox 97.8 F 77 18 115/77 96 07/19/20 16:09 07/19/20 16:09 07/19/20 16:09 07/19/20 16:09 07/19/20 16:09 Oxygen Flow Rate (L/min) [ 4 AMBULATION with Oxygen] Oxygen Flow Rate (L/min) 4 Oxygen Delivery Method Nasal Cannula Weight: 132.4 kg Body Mass Index (BMI) 41.5 Intake and Output for Last 24 Hours 07/18/20 07/19/20 07/20/20 23:59 23:59 23:59 Intake Total 840 / 840 650 / 650 Output Total 500 / 500 1150 / 1150 Balance 340 / 340 -500 / -500 Microbiology Past 72 Hours 07/12/20 12:35 Blood Culture (Wb) - Left Hand Blood Culture - Final No growth in 5 days. 07/12/20 12:15 Blood Culture (Wb) - Left Forearm Blood Culture - Final No growth in 5 days. Discharge Activity: Return to Normal Activity Weight Bearing Status: Full weight bearing Home Medications: Medications to take at Discharge Loratadine [Claritin] 10 mg PO DAILY 07/02/16 acetaminophen 500 mg tablet See Rx Instructions PO BID PRN tab 10/06/17 multivitamin 1 tab PO QDAY 10/07/17 fluticasone propionate 50 mcg/actuation nasal spray,suspension 1 spray INTRANASAL BID PRN 11/29/19 lisinopril 5 mg tablet 5 mg PO QDAY #90 tab 11/29/19 metoprolol succinate 200 mg tablet,extended release 24 hr 200 mg PO DAILY #90 tab 11/29/19 omeprazole 20 mg capsule,delayed release 20 mg PO DAILY #90 cap 11/29/19 potassium chloride 20 mEq tablet,extended release 20 meq PO BID #180 tab 11/29/19 spironolactone 25 mg tablet 12.5 mg PO DAILY #45 tab 11/29/19 Furosemide [Lasix] 80 mg PO DAILY 07/08/20 Primary Care Physician: Stu Richardson MD [Primary Care Provider] - Please follow up with your Primary Care Physician in: IN ONE WEEK Disposition: Home Minutes spent on discharge:: 31 Patient Condition:: Stable Medical Necessity - Tobacco Use Smoking Status: Former smoker Tobacco Use: Non-smoker Meaningful Use Info Meaningful Use Diagnoses (Choose all that apply): None applicable Inpatient E&M: 76704 [facility] Hosp
--- NOTE | 2020-07-21 13:51 | CASEMGMT ---
YULIA NOGUERA DC PHONE CALL DC DATE: 07/19/20 DC DISPOSITION: Home with home oxygen DC DIAGNOSIS: SARS COVID 2 Intro role of CM to patient via phone. Patient states he does not have questions re: follow up, medications or instructions. The patient has his home oxygen and a pulse oximeter for monitoring. No concerns voiced and no care improvement suggestions. Pardeep MORELN RN ACM
== END 2020-07-19 18:55 | disposition home or self-care (01) | DRG 137 ==
LOC: ED 12:39 → MS2 15:02
PROVIDERS: Internal Medicine; Admitting Provider Internal Medicine; Emergency Provider Emergency Medicine; PCP Family Medicine; Visit Provider Internal Medicine
DX: U07.1 COVID-19 (principal); J12.89 Other viral pneumonia; J96.01 Acute respiratory failure with hypoxia; G47.33 Obstructive sleep apnea (adult) (pediatric); N18.30 Chronic kidney disease, stage 3 unspecified; I13.0 Hypertensive heart and chronic kidney disease with heart failure and stage 1 through stage 4 chronic kidney disease, or unspecified chronic kidney disease; I50.22 Chronic systolic (congestive) heart failure; I25.5 Ischemic cardiomyopathy; Z79.899 Other long term (current) drug therapy; Z87.891 Personal history of nicotine dependence; K21.9 Gastro-esophageal reflux disease without esophagitis; E87.1 Hypo-osmolality and hyponatremia; T38.0X5A Adverse effect of glucocorticoids and synthetic analogues, initial encounter; R73.9 Hyperglycemia, unspecified; N17.9 Acute kidney failure, unspecified
CPT/HCPCS: 36415; 71045; 71275; 80048; 80053; 82550; 83605; 83615; 84145; 85025; 85379; 85384; 86140; 87040; 94002; 94003; 94640; 97110; 97116; 97162; 97166; 97530; 97803; 99251; 99285; J7030; J7050; Q9967; 90686; A4216; G0463; J1940; J2405

== ENCOUNTER → 2020-08-18 07:44 | Outpatient (CLI) | payer MEDICAID, SELFPAY ==
[2020-07-12 15:34] VITALS: BMI 41.5
--- NOTE | 2020-08-18 07:46 | ECHOCS_ITS ---
Reason For Study: CHF Procedure This was a 2D Doppler, Color Flow transthoracic echocardiogram. Technically difficult study due to patient body habitus. Contrast injection performed. Exam performed in department. Left Ventricle Normal LV size. The estimated ejection fraction is 25 %. Stage 1 diastolic dysfunction. There is severe global hypokinesis of the left ventricle. Right Ventricle Normal RV size. Normal systolic function. Atria Normal left atrium. Normal right atrium. Mitral Valve Normal mitral valve. Tricuspid Valve Normal tricuspid valve. Aortic Valve Normal aortic valve. Trisinus/trileaflet aortic valve. Pulmonic Valve Normal pulmonic valve. Great Vessels Normal aortic root. The pulmonary artery is normal size. Normal inferior vena cava. Pericardium/Pleural No pericardial effusion. Medication 22 gauge I.V. with prn adaptor inserted into right arm. Diluted definity 6ml given slow IV push to enhance endocardial definition. Performed a rapid injection of agitated mix of 9 cc saline and 1cc air to assess for atrial septal defect. MMode/2D Measurements & Calculations LVIDd: 5.4 cm IVSd: 1.4 cm LA dimension: 4.8 cm LVIDs: 4.2 cm LVPWd: 1.0 cm FS: 22.4 % LAV(MOD-bp): 56.4 ml LA A4 area: 18.8 cm2 RA A4 area: 17.8 cm2 LAV(MOD-bp) Indexed: 22.1 ml/m2 LAV(MOD-sp2): 54.5 ml LAV(MOD-sp4): 50.9 ml Time Measurements MV dec time: 0.34 sec Doppler Measurements & Calculations MV E max memo: 40.4 cm/sec Lat Peak E' Memo: 8.5 cm/sec Med Peak E' Memo: 4.9 cm/sec MV A max memo: 59.9 cm/sec E/E' lat: 4.7 E/E' med: 8.2 MV E/A: 0.68 MV V2 max: 59.1 cm/sec MV P1/2t max memo: 44.4 cm/sec Ao V2 max: 118.1 cm/sec MV max P.4 mmHg MV P1/2t: 121.0 msec Ao max P.6 mmHg MV V2 mean: 31.8 cm/sec MV dec slope: 107.5 cm/sec2 MV mean P.47 mmHg MV V2 VTI: 17.2 cm MVA(P1/2t): 1.8 cm2 LV V1 max: 77.0 cm/sec PA V2 max: 131.9 cm/sec PI dec slope: 244.9 cm/sec2 LV V1 max P.4 mmHg Interpretation Summary Normal LV size. The estimated ejection fraction is 25 %. There is severe global hypokinesis of the left ventricle. Stage 1 diastolic dysfunction. Compared to previous study, the left ventricular systolic function has improved.. Contrast injection was performed. Ordering Physician: Robson Burgess Referring Physician: Stu Richardson Performed By: Isai Del Toro RCS
== END ==
PROVIDERS: PCP Family Medicine; Referring Provider Internal Medicine Cardiovascular Disease; Visit Provider Internal Medicine Cardiovascular Disease
DX: I50.9 Heart failure, unspecified (principal)
CPT/HCPCS: 93306; Q9957; A4216; C8929

== ENCOUNTER → 2020-10-31 10:43 | Outpatient (CLI) | payer MEDICAID, SELFPAY ==
[2020-08-22 15:13] VITALS: BMI 43.4
[2020-10-31 11:40] LABS: Anion Gap 9 (5-15); BUN 16 mg/dL (7-18); BUN/Creat Ratio 13.7 RATIO (10-20); Calcium,Total 8.9 mg/dL (8.5-10.1); Chloride 104 mmol/L (98-107); Creatinine, Serum 1.17 mg/dL (0.70-1.30); EST Glomerular Filtration Rate 68 mL/min (>60); Est Glom Filt Rate - Afr Amer 82 mL/min (>60); Glucose 171 mg/dL (74-106); Sodium Level 140 mmol/L (136-145)
== END ==
PROVIDERS: PCP Family Medicine; Referring Provider Nurse Practitioner Family; Visit Provider Nurse Practitioner Family
DX: I42.8 Other cardiomyopathies (principal); I11.0 Hypertensive heart disease with heart failure; I50.20 Unspecified systolic (congestive) heart failure
CPT/HCPCS: 36415; 80048

== ENCOUNTER → 2020-12-05 14:15 | Outpatient (CLI) | payer MEDICAID, SELFPAY ==
[2020-11-21 15:44] VITALS: BMI 44.6
[2020-12-05 15:24] LABS: BNP,B-Type NATRIURETIC PEPTIDE 11.3 pg/mL (0-100)
[2020-12-05 15:34] LABS: AST(SGOT) 19 U/L (15-37); Alanine Aminotransfer ALT/SGPT 37 U/L (16-61); Alkaline Phosphatase 68 U/L (45-117); Anion Gap 7 (5-15); BUN 16 mg/dL (7-18); Calcium,Total 9.4 mg/dL (8.5-10.1); Chloride 105 mmol/L (98-107); Creatinine, Serum 1.07 mg/dL (0.70-1.30); EST Glomerular Filtration Rate 75 mL/min (>60); Est Glom Filt Rate - Afr Amer 91 mL/min (>60); Globulin 4.1 g/dL (2.2-4.2); Glucose 118 mg/dL (74-106); Magnesium 2.2 mg/dL (1.6-2.6); Potassium 3.7 mmol/L (3.5-5.1); Protein, Total 8.1 g/dL (6.4-8.2); Sodium Level 139 mmol/L (136-145); T4 Free Direct 0.96 ng/dL (0.76-1.46); Thyroid Stim Hormone (TSH) 1.91 uIU/mL (0.358-3.74)
== END ==
PROVIDERS: PCP Family Medicine; Visit Provider Family Medicine
DX: K76.0 Fatty (change of) liver, not elsewhere classified (principal); E11.65 Type 2 diabetes mellitus with hyperglycemia; I49.3 Ventricular premature depolarization
CPT/HCPCS: 36415; 80053; 83735; 83880; 84439; 84443

== ENCOUNTER → 2020-12-10 09:41 | Outpatient (CLI) | payer MEDICAID, SELFPAY ==
[2020-08-22 15:13] VITALS: BMI 43.4
[2020-11-21 15:44] VITALS: BMI 44.6
--- NOTE | 2020-12-10 09:45 | ECHOCS_ITS ---
Reason For Study: CHF Procedure This was a 2D Doppler, Color Flow transthoracic echocardiogram. The study was technically difficult. Contrast injection was performed. Exam performed in department. Left Ventricle Moderately dilated left ventricle. The estimated ejection fraction is 40 %. Stage 1 diastolic dysfunction. There is mild to moderate global hypokinesis of the left ventricle. Right Ventricle Normal RV size. Normal systolic function. Atria The left atrium is mildly enlarged. The right atrium is mildly enlarged. Mitral Valve Normal mitral valve. Tricuspid Valve Normal tricuspid valve. Unable to estimate RV systolic pressure due to inadequate jet, pulmonary artery pressure probably normal. Aortic Valve The aortic valve is not well visualized. Pulmonic Valve The pulmonic valve is not well visualized. Great Vessels Normal aortic root. The pulmonary artery is normal size. Normal inferior vena cava. Pericardium/Pleural No pericardial effusion. Medication 22 gauge I.V. with prn adaptor inserted into right arm. Diluted definity 6ml given slow IV push to enhance endocardial definition. MMode/2D Measurements & Calculations LVIDd: 6.6 cm IVSd: 1.2 cm LA dimension: 5.2 cm LVIDs: 4.7 cm LVPWd: 1.0 cm FS: 29.3 % LAV(MOD-bp): 81.2 ml LA A4 area: 24.8 cm2 RA A4 area: 22.5 cm2 LAV(MOD-bp) Indexed: 30.9 ml/m2 LAV(MOD-sp2): 78.5 ml LAV(MOD-sp4): 78.0 ml Time Measurements MV dec time: 0.43 sec Doppler Measurements & Calculations MV E max memo: 45.8 cm/sec Lat Peak E' Memo: 7.9 cm/sec Med Peak E' Memo: 5.5 cm/sec MV A max memo: 59.1 cm/sec E/E' lat: 5.8 E/E' med: 8.4 MV E/A: 0.78 MV V2 max: 66.6 cm/sec MV P1/2t max memo: 58.9 cm/sec Ao V2 max: 124.2 cm/sec MV max P.8 mmHg MV P1/2t: 107.8 msec Ao max P.2 mmHg MV V2 mean: 39.2 cm/sec MV dec slope: 160.0 cm/sec2 MV mean P.70 mmHg MV V2 VTI: 26.0 cm MVA(P1/2t): 2.0 cm2 LV V1 max: 85.2 cm/sec PA V2 max: 115.6 cm/sec PI dec slope: 151.1 cm/sec2 LV V1 max P.9 mmHg ECHO/Echo Complete W/ Contrast Interpretation Summary Moderately dilated left ventricle. The estimated ejection fraction is 40 %. Stage 1 diastolic dysfunction. There is mild to moderate global hypokinesis of the left ventricle. The left atrium is mildly enlarged. Contrast injection was performed. Ordering Physician: Chris Neumann Referring Physician: Stu Richardson Performed By: Isai Del Toro RCS
== END ==
PROVIDERS: PCP Family Medicine; Referring Provider Nurse Practitioner Family; Visit Provider Nurse Practitioner Family
DX: I50.9 Heart failure, unspecified (principal)
CPT/HCPCS: 93306; Q9957; A4216; C8929

== ENCOUNTER → 2021-07-24 09:40 | Outpatient (CLI) | payer MEDICAID, SELFPAY ==
--- NOTE | 2021-07-24 09:43 | ECHOLC_ITS ---
Reason For Study: DYSPNEA Procedure This was a limited 2D transthoracic echocardiogram. Contrast injection was performed. The study was technically difficult. Exam performed in department. Left Ventricle Normal LV size. Left ventricular systolic function is normal. The estimated ejection fraction is 55 %. No regional wall motion abnormalities noted. Right Ventricle Normal RV size. Normal systolic function. Atria Normal left atrium. Normal right atrium. Mitral Valve Normal mitral valve. Tricuspid Valve Normal tricuspid valve. Aortic Valve The aortic valve is not well visualized. Pulmonic Valve Normal pulmonic valve. Great Vessels Normal aortic root. The pulmonary artery is normal size. Normal inferior vena cava. Pericardium/Pleural No pericardial effusion. Medication 22 gauge I.V. with prn adaptor inserted into right arm. Diluted definity 5.0ml given slow IV push to enhance endocardial definition. MMode/2D Measurements & Calculations LVIDd: 5.4 cm IVSd: 1.0 cm LVIDs: 4.1 cm LVPWd: 1.1 cm LVAd ap4: 47.9 cm2 FS: 25.1 % LVLd ap4: 9.4 cm EDV(MOD-sp4): 193.0 ml EDV(sp4-el): 207.6 ml LVAs ap4: 31.9 cm2 LVLs ap4: 8.2 cm ESV(MOD-sp4): 99.9 ml ESV(sp4-el): 104.5 ml EF(MOD-sp4): 48.2 % EF(sp4-el): 49.7 % LVAd ap2: 34.0 cm2 SV(MOD-sp4): 93.1 ml SV(MOD-sp2): 42.9 ml LVLd ap2: 9.7 cm EDV(MOD-sp2): 100.9 ml EDV(sp2-el): 101.0 ml LVAs ap2: 23.5 cm2 LVLs ap2: 8.5 cm ESV(MOD-sp2): 58.0 ml ESV(sp2-el): 55.3 ml EF(MOD-sp2): 42.5 % SV(sp4-el): 103.1 ml ECHO/Echo Limited w/Contrast Interpretation Summary Normal LV size. Left ventricular systolic function is normal. The estimated ejection fraction is 55 %. Contrast injection was performed. Ordering Physician: Robson Burgess Referring Physician: RICKIE ABDI Performed By: Lola Simons, ROBERTO CARLOS, RVT
== END ==
PROVIDERS: PCP Family Medicine; Referring Provider Internal Medicine Cardiovascular Disease; Visit Provider Internal Medicine Cardiovascular Disease
DX: I50.22 Chronic systolic (congestive) heart failure (principal); R06.02 Shortness of breath; R06.00 Dyspnea, unspecified
CPT/HCPCS: 93306; 93308; Q9957; A4216; C8924; C8929

== ENCOUNTER → 2022-07-02 | Outpatient (CLI) | payer MEDICAID, SELFPAY ==
[2022-07-02 12:51] LABS: AST(SGOT) 18 U/L (15-37); Alanine Aminotransfer ALT/SGPT 41 U/L (16-61); Albumin, Serum 3.9 g/dL (3.2-5.0); Alkaline Phosphatase 80 U/L (45-117); Anion Gap 5 (5-15); BUN 20 mg/dL (7-18); BUN/Creat Ratio 16.9 RATIO (10-20); Calcium,Total 9.4 mg/dL (8.5-10.1); Chloride 104 mmol/L (98-107); Creatinine, Serum 1.18 mg/dL (0.70-1.30); EST Glomerular Filtration Rate 67 mL/min (>60); Est Glom Filt Rate - Afr Amer 81 mL/min (>60); Globulin 3.9 g/dL (2.2-4.2); Glucose 175 mg/dL (74-106); Potassium 4.9 mmol/L (3.5-5.1); Protein, Total 7.8 g/dL (6.4-8.2); Sodium Level 139 mmol/L (136-145)
== END | disposition home or self-care (01) ==
LOC: BFHLAB 08:53
PROVIDERS: PCP Family Medicine; Visit Provider Family Medicine
DX: I10 Essential (primary) hypertension (principal)
CPT/HCPCS: 36415; 80053

== ENCOUNTER → 2023-03-11 | Outpatient (CLI) | payer MEDICAID, SELFPAY ==
[2023-03-11 12:01] LABS: AST(SGOT) 22 U/L (15-37); Alanine Aminotransfer ALT/SGPT 34 U/L (16-61); Albumin, Serum 3.8 g/dL (3.2-5.0); Alkaline Phosphatase 74 U/L (45-117); Anion Gap 6 (5-15); BUN 20 mg/dL (7-18); BUN/Creat Ratio 20.9 RATIO (10-20); Bilirubin, Direct 0.07 mg/dL (0.00-0.30); Calcium,Total 9.2 mg/dL (8.5-10.1); Chloride 107 mmol/L (98-107); Cholesterol 177 mg/dL (200); Creatinine, Serum 0.96 mg/dL (0.70-1.30); EST Glomerular Filtration Rate 85 mL/min (>60); Est Glom Filt Rate - Afr Amer 103 mL/min (>60); Globulin 3.7 g/dL (2.2-4.2); Glucose 143 mg/dL (74-106); High Density Lipoprotein 32 mg/dL; Potassium 4.6 mmol/L (3.5-5.1); Protein, Total 7.5 g/dL (6.4-8.2); Sodium Level 139 mmol/L (136-145); Thyroid Stim Hormone (TSH) 1.64 uIU/mL (0.358-3.74); Triglycerides 166 mg/dL; Very Low Density Lipoprotein 33 mg/dL (5-40)
== END | disposition home or self-care (01) ==
LOC: LAB 11:01
PROVIDERS: PCP Family Medicine; Referring Provider Internal Medicine Cardiovascular Disease; Visit Provider Internal Medicine Cardiovascular Disease
DX: I10 Essential (primary) hypertension (principal); I42.8 Other cardiomyopathies
CPT/HCPCS: 36415; 80048; 80061; 80076; 84443

== ENCOUNTER → 2023-03-18 | Outpatient (CLI) | payer MEDICAID, SELFPAY ==
--- NOTE | 2023-03-18 14:46 | ECHOCS_ITS ---
Reason For Study: CARDIOMYOPATHIES Procedure This was a 2D Doppler, Color Flow transthoracic echocardiogram. The study was technically difficult. Due to body habitus. Contrast injection was performed. Exam performed in department. Left Ventricle Normal LV size. Mild concentric left ventricular hypertrophy. Left ventricular systolic function is normal. The estimated ejection fraction is 55 %. Stage 1 diastolic dysfunction. No regional wall motion abnormalities noted. Right Ventricle Normal RV size. Normal systolic function. Atria Normal left atrium. Normal right atrium. Mitral Valve Normal mitral valve. Tricuspid Valve Normal tricuspid valve. Mild tricuspid valve insufficiency. Pulmonary artery systolic pressure is 24 mmHg. Pulmonic Valve Normal pulmonic valve. Great Vessels Normal aortic root. The pulmonary artery is normal size. Pericardium/Pleural No pericardial effusion. Medication Diluted definity 3.0ml given slow IV push to enhance endocardial definition. MMode/2D Measurements & Calculations LVIDd: 6.0 cm IVSd: 1.4 cm Ao root diam: 3.3 cm LVIDs: 4.2 cm LVPWd: 1.2 cm RVDd: 3.5 cm FS: 29.0 % LAV(MOD-bp): 111.0 ml LVAd ap4: 44.6 cm2 LVAd ap2: 28.6 cm2 LAV(MOD-bp) Indexed: 42.5 ml/m2 LVLd ap4: 9.0 cm LVLd ap2: 8.6 cm LAV(MOD-sp2): 89.3 ml EDV(MOD-sp4): 188.4 ml EDV(MOD-sp2): 79.3 ml LAV(MOD-sp4): 110.8 ml EDV(sp4-el): 188.2 ml EDV(sp2-el): 80.7 ml LVAs ap4: 29.0 cm2 LVAs ap2: 17.6 cm2 LVLs ap4: 8.1 cm LVLs ap2: 7.2 cm ESV(MOD-sp4): 86.3 ml ESV(MOD-sp2): 38.0 ml ESV(sp4-el): 88.2 ml ESV(sp2-el): 36.7 ml EF(MOD-sp4): 54.2 % EF(MOD-sp2): 52.1 % EF(sp4-el): 53.1 % SV(MOD-sp4): 102.1 ml SV(MOD-sp2): 41.3 ml SV(sp4-el): 100.0 ml LA dimension(2D): 5.5 cm LA A4 area: 29.8 cm2 RA A4 area: 19.8 cm2 Time Measurements MV dec time: 0.23 sec Doppler Measurements & Calculations MV E max memo: 53.1 cm/sec Lat Peak E' Memo: 12.8 cm/sec Med Peak E' Memo: 7.6 cm/sec MV A max memo: 63.9 cm/sec E/E' lat: 4.1 E/E' med: 7.0 MV E/A: 0.83 MV dec slope: 232.8 cm/sec2 Ao V2 max: 106.1 cm/sec LV V1 max: 77.9 cm/sec Ao max P.5 mmHg LV V1 max P.4 mmHg Ao V2 mean: 73.4 cm/sec LV V1 mean P.3 mmHg Ao mean P.5 mmHg LV V1 mean: 53.9 cm/sec Ao V2 VTI: 25.3 cm LV V1 VTI: 18.5 cm AV (velocity ratio): 0.73 PA V2 max: 112.5 cm/sec PI dec slope: 170.9 cm/sec2 TR max memo: 232.7 cm/sec TR max P.7 mmHg ECHO/Echo Complete W/ Contrast Interpretation Summary Normal LV size. Left ventricular systolic function is normal. The estimated ejection fraction is 55 %. Stage 1 diastolic dysfunction. Pulmonary artery systolic pressure is 24 mmHg. Contrast injection was performed. Ordering Physician: Robson Burgess Referring Physician: Vicenta Serrano Performed By: Eli Benitez, RDCS, RVT
== END | disposition home or self-care (01) ==
LOC: CVS 14:45
PROVIDERS: PCP Family Medicine; Referring Provider Internal Medicine Cardiovascular Disease; Visit Provider Internal Medicine Cardiovascular Disease
DX: I42.8 Other cardiomyopathies (principal)
CPT/HCPCS: 93306; Q9957; A4216; C8929

== ENCOUNTER → 2024-06-22 | Outpatient (CLI) | payer MEDICAID, SELFPAY ==
[2024-06-22 15:14] LABS: Absolute Lymphocyte Count 1.91 X10^3/uL (0.83-4.51); Absolute Neutrophil Count 5.4 X10^3/uL (2.0-7.7); Basophil# 0.03 X10^3/uL; Basophil% 0.4 % (0-1); Eosinophil# 0.17 X10^3/uL; Eosinophils% 2.1 % (0-5); Hematocrit 44.2 % (40-54); Hemoglobin 14.7 g/dL (13.0-16.5); Lymphocyte # 1.91 X10^3/ul (0.83-4.51); Lymphocyte % 23.7 % (19-41); Mean Corp Hgb Conc 33.3 g/dL (32-36); Mean Corpuscular Hgb 28.3 pg (27.0-32.0); Mean Corpuscular Volume 85.2 fL (80-94); Mean Platelet Vol. 10.8 fl (6.2-12.0); Monocyte# 0.52 X10^3/uL; Monocyte% 6.5 % (0-10); NRBC Flagged by Analyzer 0 % (0-5); Neutrophil % 66.9 % (47-70); Platelet Count 214 K/mm3 (150-450); RBC Distribution Width CV 13.2 % (11.6-14.6); RBC Distribution Width SD 40.9 fl (35.1-43.9); Red Blood Count 5.19 M/mm3 (4.6-6.2); White Blood Count 8.1 K/mm3 (4.4-11.0)
[2024-06-22 15:31] LABS: AST(SGOT) 12 U/L (15-37); Alanine Aminotransfer ALT/SGPT 27 U/L (16-61); Albumin, Serum 3.6 g/dL (3.2-5.0); Alkaline Phosphatase 79 U/L (45-117); Anion Gap 4 (5-15); BUN 13 mg/dL (7-18); BUN/Creat Ratio 14.5 RATIO (10-20); Calcium,Total 8.9 mg/dL (8.5-10.1); Chloride 108 mmol/L (98-107); Cholesterol 177 mg/dL (200); EST Glomerular Filtration Rate 91 mL/min (>60); Est Glom Filt Rate - Afr Amer 110 mL/min (>60); Globulin 3.7 g/dL (2.2-4.2); Glucose 168 mg/dL (74-106); High Density Lipoprotein 34 mg/dL; Potassium 4.1 mmol/L (3.5-5.1); Protein, Total 7.3 g/dL (6.4-8.2); Sodium Level 138 mmol/L (136-145); Triglycerides 118 mg/dL; Very Low Density Lipoprotein 24 mg/dL (5-40)
[2024-06-22 15:53] LABS: Microalbumin,Random Urine 42.4 mg/L (NO RANGE EST.); Microalbumin:Creatinine Ratio 84.5 mg/g CRE (<30 mg/g CRE)
== END | disposition home or self-care (01) ==
LOC: BFHLAB 13:37
PROVIDERS: PCP Family Medicine; Referring Provider Family Medicine; Visit Provider Family Medicine
DX: Z00.00 Encounter for general adult medical examination without abnormal findings (principal); I42.0 Dilated cardiomyopathy; E11.9 Type 2 diabetes mellitus without complications
CPT/HCPCS: 80053; 80061; 82043; 82570; 85025

== ENCOUNTER → 2025-03-08 | Outpatient (CLI) | payer MEDICAID, SELFPAY | END | disposition home or self-care (01) | LOC: BFHLAB 10:39 | PROVIDERS: PCP Family Medicine; Visit Provider Family Medicine | DX: R68.89 Other general symptoms and signs (principal) | CPT/HCPCS: 36415; 86617 ==

== ENCOUNTER → 2025-04-19 | Outpatient (CLI) | payer MEDICAID, SELFPAY ==
[2025-04-19 13:02] LABS: Hematocrit 45.7 % (40-54); Hemoglobin 15.2 g/dL (13.0-16.5); Immature Granulocytes Count 0.040 X10^3/uL (0.0-0.0); Mean Corp Hgb Conc 33.3 g/dL (32-36); Mean Corpuscular Volume 86.7 fL (80-94); Mean Platelet Vol. 10.6 fl (6.2-12.0); NRBC Flagged by Analyzer 0 % (0-5); Platelet Count 201 K/mm3 (150-450); RBC Distribution Width CV 13.4 % (11.6-14.6); RBC Distribution Width SD 42.4 fl (35.1-43.9); Red Blood Count 5.27 M/mm3 (4.6-6.2); White Blood Count 8.1 K/mm3 (4.4-11.0)
[2025-04-19 13:21] LABS: AST(SGOT) 18 U/L (<=37); Alanine Aminotransfer ALT/SGPT 26 U/L (<=46); Albumin, Serum 4.2 g/dL (3.4-4.8); Alkaline Phosphatase 70 U/L (40-129); Anion Gap 11 (5-15); BUN 20 mg/dL (4-19); BUN/Creat Ratio 23.1 RATIO (10-20); Calcium,Total 9.8 mg/dL (7.6-11.0); Carbon Dioxide 24.6 mmol/L (21.0-32.0); Chloride 106 mmol/L (98-108); Cholesterol 185 mg/dL (<=200); Globulin 2.9 g/dL (2.2-4.2); Glucose 150 mg/dL (70-99); Low Density Lipoprotein Calc. 110 mg/dL; Potassium 4.7 mmol/L (3.3-5.1); Triglycerides 231 mg/dL; Very Low Density Lipoprotein 46 mg/dL (5-40); cholesterol:hdl ratio screen 6.47
[2025-04-19 14:13] LABS: Creatinine, Urine (random) 47.40 mg/dL (39.00-259.00); Microalbumin,Random Urine 13.7 mg/L (<20 mg/L)
== END | disposition home or self-care (01) ==
PROVIDERS: PCP Family Medicine; Visit Provider Family Medicine
DX: I42.0 Dilated cardiomyopathy (principal); E11.9 Type 2 diabetes mellitus without complications
CPT/HCPCS: 36415; 80053; 80061; 82043; 82570; 85025

== ENCOUNTER → 2025-05-10 | Outpatient (CLI) | payer MEDICAID, SELFPAY ==
--- NOTE | 2025-05-10 12:25 | RAD_ITS ---
PROCEDURE: HIP, UNI W/ PELVIS 2-3 VIEWS 05/10/2025 REASON FOR EXAM: LEFT HIP PAIN TECHNIQUE: Procedure Code: RAD Modality: DX Procedure: HIP, UNI W/ PELVIS 2-3 VIEWS Laterality: Left COMPARISON: None FINDINGS: Bones: There is normal mineralization of the osseous structures. There are no fractures or dislocations. Joints: Mild osteoarthritic changes are seen involving both hips. SI joints are unremarkable. Pubic symphysis is unremarkable. Soft tissues: Unremarkable Other: Radiopaque coils are projected over the left hemipelvic region. RAD/HIP, UNI W/ Pelvis 2-3 Views IMPRESSION: Mild osteoarthritic changes are seen involving both hips. Reading Location: [id number]
--- OUTSIDE RECORDS SUMMARY | 2025-05-10 12:35 | XMS RPT_ITS | CCD ---
Author Organization [facility] Care Team Providers Care Chute Boss Name Role Phone Stefani Batista Unavailable Unavailable Stefani Batista Unavailable Unavailable DeFinis, Harumi Y Unavailable Unavailable Diana RN, Jenni Hunter Unavailable Unavailable Evelio Acosta Primary Care Provider Dr. Stu Richardson Referring Provider Dr. Robson Burgess Attending Provider Dr. Vicenta Serrano Primary Care Provider Roof VENEER PRODUCTION MACHINE OPERATOR, VENEER PRODUCTION MACHINE OPERATOR-Kimmie Mustafa Attending Provider Dr. Vicenta Serrano MD Primary Care Provider Dr. Vicenta Serrano MD Attending Provider Dr. Vicenta Serrano MD Referring Provider Venkata Valencia Attending Provider Vicenta Serrano Attending Unavailable Vicenta Serrano Primary Care Unavailable Vicenta Serrano Attending Unavailable Vicenta Serrano Primary Care Unavailable Vicenta Serrano Attending Unavailable Vicenta Serrano Primary Care Unavailable Vicenta Serrano Referring Unavailable Venkata Murcia Attending Unavailable Vicenta Serrano Primary Care Unavailable Vicenta Serrano Referring Unavailable Allergies Allergy Classification Reported Allergen(s) Allergy Type Date of Onset Reaction(s) Facility (16 sources) codeine; Translations: [codeine] drug allergy 6 "wired" (anxiety), Anxiety ("wired") [facility] Work Phone: (8 sources) naproxen drug allergy 6 Rectal bleed [facility] Work Phone: (1 source) Aspirin Drug Allergy 6 [facility] (6 sources) Naproxen Drug Allergy 2 [facility] (1 source) Naproxen Drug Allergy 4 [facility] Medications Current Medications Medication Drug Class(es) Dates Sig (Normalized) Sig (Original) acetaminophen 500 mg oral tablet (10 sources) Start: 10-06-2017 take 1 tablet by mouth twice daily as needed for fever Acetaminophen 500 mg tablet Active 0 PO TWICE A DAY as needed for Fever October 06, 2017 1:00am 500MG, 2 Tablets PO BID PRN Start: 08-25-2016 take 2 tablets by mo uth twice daily as needed TYLENOL EXTRA STRENGTH 500 MG TABS Two tablets by mouth twice daily as needed for tooth ache ACETAMINOPHEN [id number] Lana Donnelly RN chondroitin sulfates 200 mg / glucosamine hydrochloride 250 mg oral tablet (5 sources) Start: 03-11-2023 Glucosamine-Ch ondroitin (Osteo Bi-Flex) 250-200 mg tablet Active 2 {tbl} PO TWICE A DAY March 11, 2023 12:00am give after food/meal fluticasone propionate 0.05 mg/actuat metered dose nasal spray (16 sources) Corticosteroid Start: 11-29-2019 Fluticasone Pr opionate 50 mcg/actuation spray,suspension Active 1 NMA INTRANASAL TWICE A DAY as needed for Allergies November 29, 2019 2:36pm Start: 05-18-2016 FLONASE 50 MCG /ACT SUSP Take as directed FLUTICASONE PROPIONATE Lana Donnelly RN Start: 05-18-2016 FLONASE 50 MCG /ACT SUSP Take as directed FLUTICASONE PROPIONATE Lana Donnelly RN Start: 05-02-2016 End: 11-29-2019 Fluticasone Propionate 1 SPR AY spray,suspension Discontinued 1 NMA NASAL TWICE A DAY May 02, 2016 12:00am November 29, 2019 2:40pm Start: 05-02-2016 End: 11-29-2019 Fluticasone Propionate Activ e 1 SPRAY INTRANASAL TWICE A DAY November 29, 2019 2:36pm loratadine 10 mg oral tablet (10 sources) Start: 05-18-2016 take 1 tablet by mouth once daily Loratadine 10 MG tablet Active 10 mg PO DAILY July 02, 2016 1:00am Multivitamin preparation (3 sources) Start: 10-07-2017 take 1 tablet by mouth once daily Multivitamin Active 1 TABLET PO daily October 07, 2017 1:00am Start: 10-07-2017 take 1 tablet by alena th once daily Multivitamin Active 1 TABLET PO daily October 07, 2017 12:00am Multivitamin tablet (3 sources) Start: 10-07-2017 Multivitamin t ablet Active 1 {tbl} PO daily October 07, 2017 1:00am potassium chloride 20 meq extended release oral tablet (20 sources) Start: 09-03-2022 End: 07-29-2023 take 1 tablet by mouth once daily Potassium Chloride 20 mEq tablet extended release Active 20 meq PO DAILY 90 3 July 29, 2023 1:18pm Start: 03-02-2019 End: 09-03-2022 take 1 tablet by mouth twice daily Potassium Chloride 20 mEq tablet extended release Discontinued 20 meq PO TWICE A DAY 180 3 December 02, 2021 4:34pm February 26, 2022 8:57am Completed/Discontinued Medications Medication Drug Class(es) Dates Sig (Normalized) Sig (Original) albuterol 0.83 mg/ml inhalant solution (18 sources) beta2-Adrenergic Agonist Start: 01-26-2017 ALBUTEROL SULFATE (2.5 MG/3ML) 0.083% NEBU via nebulizer three times a day ALBUTEROL SULFATE [id number] Jenni Ortiz RN Start: 05-18-2016 End: 06-28-2016 ALBUTEROL SULFATE (2.5 MG/3M L) 0.083% NEBU via nebulizer three times a day ALBUTEROL SULFATE [id number] Jenni Ortiz RN Start: 05-02-2016 End: 10-11-2017 take 2.5 mg by inhalation every four hours as needed for wheezing Albuterol Sulfate 2.5 MG/3 ML solution for nebulization Discontinued 2.5 mg INHALATION EVERY 4 HOURS NEEDED as needed for Sob &/Or Wheezing May 02, 2016 12:00am October 11, 2017 5:41pm aspirin 81 mg delayed release oral tablet (14 sources) Platelet Aggregation Inhibitor, Nonsteroidal Anti-inflammatory Drug Start: 05-18-2016 End: 05-19-2016 ASPIRIN EC 81 MG [facility] ASPIRIN [id number] Lana Donnelly RN Start: 05-02-2016 End: 10-07-2017 take 1 tablet by mouth once daily Aspirin 81 MG tablet,chewable Discontinued 81 mg PO DAILY May 02, 2016 12:00am October 07, 2017 6:12pm dexamethasone 6 mg oral tablet (6 sources) Corticosteroid Start: 07-08-2020 End: 07-19-2020 take 1 tablet by mouth once daily Dexamethasone 6 MG tablet Discontinued 6 mg PO DAILY 9 July 08, 2020 1:00am July 19, 2020 4:08pm 24 hr fexofenadine hydrochloride 180 mg / pseudoephedrine hydrochloride 240 mg extended release oral tablet (6 sources) alpha-Adrenergic Agonist, Histamine-1 Receptor Antagonist Start: 05-02-2016 End: 10-07-2017 take 1 tablet by mouth every twenty-four hours Fexofenadine-Pseud oephedrine 1 EACH tablet extended release 24 hr Discontinued 1 NMA PO DAILY May 02, 2016 12:00am October 07, 2017 6:12pm Start: 05-02-2016 End: 10-07-2017 Fexofenadine-Pseudoephedrine Discontinued 1 EACH PO DAILY May 02, 2016 12:00am October 07, 2017 6:12pm furosemide 40 mg oral tablet (20 sources) Loop Diuretic Start: 09-03-2022 End: 04-26-2025 take 1 tablet by mouth once daily as needed Furosemide 40 mg tablet Discontinued 40 mg PO DAILY as needed for diuresis 90 3 February 07, 2024 4:31pm April 26, 2025 10:22am Start: 09-03-2022 End: 09-03-2022 Furosemide 80 mg tablet Disc ontinued 40 mg PO DAILY September 03, 2022 10:03am September 03, 2022 10:31am diuresis Start: 09-03-2022 End: 09-03-2022 take 40 mg by mouth once daily Furosemide Discontinued 40 MG PO DAILY September 03, 2022 10:03am September 03, 2022 10:31am Start: 02-22-2019 End: 09-03-2022 take 1 tablet by mouth once daily Furosemide 80 mg tablet Discontinued 80 mg PO DAILY 90 4 November 06, 2021 10:05am September 03, 2022 10:04am diuresis Start: 05-18-2016 End: 02-22-2019 take 1 tablet by mouth twice daily Furosemide 80 mg tablet Discontinued 80 mg PO TWICE DAILY 180 3 October 25, 2018 5:33pm February 22, 2019 11:21am lisinopril 5 mg oral tablet (20 sources) Angiotensin Converting Enzyme Inhibitor Start: 10-11-2017 End: 08-22-2020 take 1 tablet by mouth once daily Lisinopril 5 mg tablet Discontinued 5 mg PO daily 90 3 November 29, 2019 2:42pm August 22, 2020 4:31pm Start: 05-18-2016 End: 10-11-2017 take 1 tablet by mouth once daily Lisinopril 2.5 MG tablet Discontinued 2.5 mg PO DAILY July 02, 2016 1:00am October 11, 2017 5:40pm 24 hr metoprolol succinate 200 mg extended release oral tablet (20 sources) beta-Adrenergic Delmy Start: 01-11-2019 End: 05-21-2024 take 1 tablet by mouth once daily Metoprolol Succinate 200 mg tablet extended release 24 hr Discontinued 200 mg PO DAILY 90 3 July 29, 2023 1:18pm May 21, 2024 7:55am Start: 10-07-2017 End: 01-11-2019 take 1 tablet by mouth once daily Metoprolol Succinate 100 mg tablet extended release 24 hr Discontinued 100 mg PO daily 90 3 October 25, 2018 5:34pm January 11, 2019 1:43pm Start: 07-02-2016 End: 10-07-2017 Metoprolol Succinate 25 MG t ablet extended release 24 hr Discontinued 75 mg PO July 02, 2016 1:00am October 07, 2017 6:10pm Start: 07-02-2016 End: 10-07-2017 Metoprolol Succinate Discont inued 75 MG PO July 02, 2016 1:00am October 07, 2017 6:10pm Start: 05-18-2016 take 3 tablets by mo uth once daily METOPROLOL SUCCINATE ER 25 MG [id number] Three tablets by mouth daily total 75mg METOPROLOL SUCCINATE [id number] Johnson Colindres MD Start: 05-18-2016 take 1 tablet by alena once daily METOPROLOL SUCCINATE ER 100 MG [id number] One tablet by mouth daily METOPROLOL SUCCINATE [id number] Robson Burgess MD MULTIPLE VITAMIN (4 sources) Start: 05-18-2016 take 1 tablet by mouth once daily MULTIVITAMINS TABS One tablet by mouth daily MULTIPLE VITAMIN Lana Donnelly RN omeprazole 20 mg delayed release oral capsule (20 sources) Proton Pump Inhibitor Start: 05-18-2016 take 1 tablet by mouth once daily PRILOSEC 20 MG CPDR One tablet by mouth daily OMEPRAZOLE [id number] Lana Donnelly RN Start: 05-02-2016 End: 07-29-2023 take 1 capsule by mouth once daily Omeprazole 20 mg capsule,delayed release(DR/EC) Discontinued 20 mg PO DAILY 90 3 October 29, 2022 3:19pm July 29, 2023 1:18pm Start: 04-08-2006 PRILOSEC OTC 2 0 MG TAB sacubitril 49 mg / valsartan 51 mg oral tablet (20 sources) Angiotensin 2 Receptor Delmy Start: 08-22-2020 End: 01-25-2025 take 1 tablet by mouth twice daily Sacubitril-Valsartan (Entresto) 49-51 mg tablet Discontinued 0 .ROUTE .COMPLEX 180 3 February 07, 2024 4:31pm January 25, 2025 9:29am Take 1 tablet by mouth twice daily silver sulfADIAZINE 10 mg/ml topical cream (1 source) Sulfonamide Antibacterial Start: 05-30-2006 SILVADENE 1 % TOPICAL CREAM Indications: Open wound of hand except finger(s) alone, without mention of complication use twice daily to finger wound 20gm 1 05/30/2006 Active Comment on above: use twice daily to f андрей wound spironolactone 25 mg oral tablet (20 sources) Aldosterone Antagonist Start: 07-02-2016 End: 02-07-2024 Spironolactone 25 mg tablet Discontinued 12.5 mg PO DAILY 45 3 July 29, 2023 1:18pm February 07, 2024 4:30pm Start: 07-02-2016 End: 02-08-2023 take 12.5 mg by mouth once daily Spironolactone Discontinued 12.5 MG PO DAILY 45 February 17, 2022 8:56am February 08, 2023 4:46pm Start: 05-18-2016 take 1 tablet by alena th once daily ALDACTONE 25 MG TABS One half tablet by mouth daily SPIRONOLACTONE [id number] Robson Burgess MD varenicline 1 mg oral tablet (1 source) Partial Cholinergic Nicotinic Agonist Start: 07-25-2009 VARENICLINE 1 MG TAB 1/2 tab daily for 4d then 1 tab daily for 4d then twice daily 60 2 07/25/2009 Active Comment on above: 1/2 tab daily for 4d then 1 tab daily for 4d then twice daily Problems Active Problems Problem Classification Problem Date Documented Da te Episodic/Chronic Cardiac and circulatory congenital anomalies (10 sources) Patent foramen ovale; Translations: [Patent foramen ovale] Onset: 05-18-2016 05-18-2016 Chronic Congestive heart failure; nonhypertensive (17 sources) Acute systolic (congestive) heart failure; Translations: [Acute systolic heart failure] Onset: 05-18-2016 05-18-2016 Chronic Esophageal disorders (1 source) Gastro-esophageal reflux disease with esophagitis; Translations: [Reflux esophagitis] Onset: 10-29-2005 10-29-2005 Chronic Essential hypertension (13 sources) Hypertensive disorder; Translations: [Essential hypertension] Onset: 05-18-2016 05-18-2016 Chronic Heart valve disorders (20 sources) Nonrheumatic tricuspid (valve) insufficiency; Translations: [Nonrheumatic mitral (valve) insufficiency] Onset: 05-18-2016 05-18-2016 Chronic Other lower respiratory disease (6 sources) Dyspnea; Translations: [Dyspnea, unspecified] 07-07-2021 Episodic Other lower respiratory disease (6 sources) Hypoxia; Translations: [Hypoxemia] 06-25-2021 Episodic Other nutritional; endocrine; and metabolic disorders (5 sources) Body mass index (BMI) 39.0-39.9, adult; Translations: [Body mass index (BMI) 40.0-44.9, adult] Onset: 05-18-2016 04-07-2017 Chronic Other nutritional; endocrine; and metabolic disorders (1 source) Body mass index (BMI) 40.0-44.9, adult; Translations: [Body mass index (BMI) 40.0-44.9, adult] Onset: 05-18-2016 05-18-2016 Chronic Other nutritional; endocrine; and metabolic disorders (1 source) Obesity; Translations: [Obesity, unspecified] Onset: 10-29-2005 10-29-2005 Chronic Other nutritional; endocrine; and metabolic disorders (6 sources) Morbid obesity; Translations: [Morbid (severe) obesity due to excess calories] 11-29-2019 Chronic Neida-; endo-; and myocarditis; cardiomyopathy (except that caused by tuberculosis or sexually transmitted disease) (15 sources) Cardiomyopathy; Translations: [Other cardiomyopathies] Onset: 05-18-2016 05-18-2016 Chronic Residual codes; unclassified (11 sources) Obstructive sleep apnea syndrome; Translations: [Obstructive sleep apnea (adult) (pediatric)] Onset: 05-18-2016 05-18-2016 Chronic Residual codes; unclassified (1 source) Other general symptoms and signs; Translations: [Other general symptoms and signs] Onset: 03-12-2025 Episodic Viral infection (12 sources) Disease caused by 2019-nCoV; Translations: [COVID-19] Onset: 07-08-2020 06-25-2021 Episodic Past or Other Problems Problem Classification Problem Date Documented Da te Episodic/Chronic Open wounds of extremities (1 source) Open wound of hand, excluding finger(s); Translations: [Open wound of hand except finger(s) alone, without mention of complication] Onset: 04-08-2006 04-08-2006 Episodic Neida-; endo-; and myocarditis; cardiomyopathy (except that caused by tuberculosis or sexually transmitted disease) (4 sources) Pericardial effusion (noninflammatory); Translations: [Pericardial effusion (noninflammatory)] Onset: 05-18-2016 05-18-2016 Episodic Results Test Name Value Interpretation Reference Range Facility Cardiology Visit Reporton Cardiology Visit Report [facility]. [address] [place], [place] [address] OFFICE VISIT Date of Service: 04/26/25 MR#: [id number] Acct: [id number] Name: JULIANHOOD Shwetha Rep #: [id number] : 1960 Provider: GURPREET Noble Age/Sex: 64/M Location: [facility] Status: Signed HPI HPI History of Present Illness Details: Hood Julian is a 64-year-old male who presents to office today for follow-up for monitoring his cardiovascular health. He has a history of nonischemic cardiomyopathy with a previous documented ejection fraction of 15%. He was treated with GDMT and referred to [facility]. His most recent echocardiogram 03/18/2023 demonstrated an ejection fraction of 55%. He has a history of hypertension and GONZALO. Upon presentation today, patient reports doing well. He takes furosemide PRN and reports he has not needed to take a dose in a long time. He denies any CHF symptoms today in office. His only presenting concern is noticing wobbliness in his legs that caused him to veer off to 1 side when walking. He is uncertain what has been causing this and reports he was post to have back surgery 20+ years ago and never underwent this. Further ROS below. Intake Vital Signs 03/09/24 09:31 04/26/25 07:08 Height 6 ft 6 ft Weight: 312 lb BMI 42.3 BP 126/73 H Blood Pressure Location Lt brachial Position Sitting Respiration 18 Pulse 77 Pulse Source Monitor Pulse Oximetry (%) 92 Intake Visit Reasons: 1 Y FU Allergies naproxen Adverse Reaction (Severe, Verified 03/09/24 09:36) rectal bleeding codeine Adverse Reaction (Intermediate, Verified 03/09/24 09:36) Anxiety ("wired") Medications ???Medication ???Instructions ???Recorded ???Confirmed ???Type loratadine 10 mg tablet 10 mg PO DAILY 07/02/16 04/26/25 H istory acetaminophen 500 mg tablet See Rx Instructions PO BID PRN 04/26/25 History Fever multivitamin 1 tab PO QDAY 10/07/17 04/26/25 Hi story fluticasone propionate 50 1 spray intranasal BID PRN 2 0 04/26/25 History mcg/actuation nasal Allergies spray,suspension glucosamine-chondroit in 250 mg-200 2 tab PO BID 03/11/23 04/26/25 H istory mg tablet (Osteo Bi-Flex) omeprazole 20 mg capsule,delayed 20 mg PO DAILY #90 caps 07/29/23 0 04/26/25 Rx release potassium chloride 20 mEq 20 meq PO DAILY #90 tabs 07/29/23 04/26/25 Rx tablet,extended release spironolactone 25 mg tablet 12.5 mg (1/2 x 25 mg) PO DAILY #45 02/07/24 04/26/25 Rx tabs metoprolol succinate 200 mg 200 mg PO DAILY #90 TABLETS 04/26/25 Rx tablet,extended release 24 hr sacubitril 49 mg-valsartan 51 mg See Rx Instructions .Route 5 04/26/25 Rx tablet (Entresto) .COMPLEX #180 tabs furosemide 40 mg tablet 40 mg PO DAILY PRN diuresis History Ejection fraction %: 55 [facility] Medical History COVID-19 virus infection (07/08/20) Morbid obesity due to excess calories Obstructive sleep apnea GERD (gastroesophageal reflux disease) Chronic systolic (congestive) heart failure Essential hypertension Nonischemic cardiomyopathy Patent foramen ovale Surgical History History of right and left heart catheterization (05/05/16) History of right inguinal hernia repair Family History Father Heart disease Hypertension Bleeding disorder Mother Cancer Social History Smoking Status: Former smoker pack-years: 20 how long ago did patient quit smokin alcohol intake: current alcohol intake frequency: holidays/special occasions only substance use type: does not use caffeine: Yes Type: coffee Number of servings: 1 ROS Const Const: Negative for fatigue, weakness, headache(s) or frequent falls Eyes Eyes: Negative for blurry vision ENT ENT: Negative for headache(s), dizziness or Nosebleed/epistaxis Cardio Chest Pain: No Palpitations: No Edema: None Muscle aches with walking: None Resp Respiratory: Negative for SOB with activity, SOB at rest or SOB orthopnea SOB lying down GI GI: Negative nausea, vomiting, heartburn, bright, red blood in stools or black,tarry stools : Negative for hematuria Neuro Neuro: Negative for dizziness, lightheadedness, near syncope, syncope, frequent falls, headache(s), weakness or blurry vision Endo Endo: Negative for fatigue Cardiology Exam Const Appearance: cooperative, comfortable, no acute distress and well developed; Negative diaphoretic or ill appearing Nutritional Appearance: obese Orientation: alert and oriented x3 Ambulating without assistive device He (more content not included)... [facility] Absolute lymphocyte countOrd ered By: Vicenta Serrano on 04-19-2025 Lymphocytes Auto (Unsp spec) [#/Vol] 1.79 10*3/uL 0.83-4.51 [facility] Absolute neutrophil countOrd ered By: Vicenta Serrano on 04-19-2025 Neutrophils (Bld) [#/Vol] 5.5 10*3/uL 2.0-7.7 [facility] Anion gap in Serum or Plasma Ordered By: Vicenta Serrano on 04-19-2025 Anion gap [Moles/Vol] 11 mmol/L 5-15 [facility] Automated lymphocyte count a s percentage of total leukocytesOrdered By: Vicenta Serrano on 04-19-2025 Lymphocytes/100 WBC Auto (Unsp spec) 22.2 % 19-41 [facility] BUN/creatinine ratioOrdered By: Vicenta Serrano on 04-19-2025 Urea nitrogen/Creatinine [Mass ratio] 23.1 mg/mg High 10-20 [facility] Basophil percentageOrdered B y: Vicenta Serrano on 04-19-2025 Basophils/100 WBC (Bld) 0.5 % 0-1 [facility] Bilirubin, totalOrdered By: Vicenta Serrano on 04-19-2025 Bilirubin [Mass/Vol] 0.22 mg/dL 0.00-1.30 [facility] CBC W/Diff, Automatedon Absolute Lymph 1.79 X10 3/uL Normal 0.83-4.51 [facility] Comment on above: Performed By: #### L 500.4100, L502.0250, L500.4050, L100.0100 #### [facility] [address] [place], [address] Absolute Neut 5.5 X10 3/uL Normal 2.0-7.7 [facility] Comment on above: Performed By: #### L 500.4100, L502.0250, L500.4050, L100.0100 #### [facility] [address] [place], [address] Basophils/100 WBC (Bld) 0.5 % Normal 0-1 [facility] Comment on above: Performed By: #### L 500.4100, L502.0250, L500.4050, L100.0100 #### [facility] [address] [place], [address] Eosinophils/100 WBC (Bld) 1.6 % Normal 0-5 [facility] Comment on above: Performed By: #### L 500.4100, L502.0250, L500.4050, L100.0100 #### [facility] [address] [place], [address] Erythrocyte distribution width (RBC) [Ratio] 13.4 % Normal 11.6-14.6 [facility] Comment on above: Performed By: #### L 500.4100, L502.0250, L500.4050, L100.0100 #### [facility] [address] [place], [address] Hematocrit (Bld) [Volume fraction] 45.7 % Normal 40-54 [facility] Comment on above: Performed By: #### L 500.4100, L502.0250, L500.4050, L100.0100 #### [facility] [address] [place], [address] Hemoglobin (Bld) [Mass/Vol] 15.2 g/dL Normal 13.0-16.5 [facility] Comment on above: Performed By: #### L 500.4100, L502.0250, L500.4050, L100.0100 #### [facility] [address] [place], [address] IG% 0.500 Normal 0.0-0.9 [facility] Comment on above: Result Comment: IG% - Immature Granulocytes (promyelocytes, myelocytes and metamyelocytes) > 1% indicates that a LEFT SHIFT is Present. Performed By: #### L 500.4100, L502.0250, L500.4050, L100.0100 #### [facility] [address] [place], [address] Lymphocytes/100 WBC (Bld) 22.2 % Normal 19-41 [facility] Comment on above: Performed By: #### L 500.4100, L502.0250, L500.4050, L100.0100 #### [facility] [address] [place], [address] MCH (RBC) [Entitic mass] 28.8 pg Normal 27.0-32.0 [facility] Comment on above: Performed By: #### L 500.4100, L502.0250, L500.4050, L100.0100 #### [facility] [address] [place], [address] MCHC (RBC) [Mass/Vol] 33.3 g/dL Normal 32-36 [facility] Comment on above: Performed By: #### L 500.4100, L502.0250, L500.4050, L100.0100 #### [facility] [address] [place], [address] MCV (RBC) [Entitic vol] 86.7 fL Normal 80-94 [facility] Comment on above: Performed By: #### L 500.4100, L502.0250, L500.4050, L100.0100 #### [facility] [address] [place], [address] Monocytes/100 WBC (Bld) 7.3 % Normal 0-10 [facility] Comment on above: Performed By: #### L 500.4100, L502.0250, L500.4050, L100.0100 #### [facility] [address] [place], [address] Neutrophils/100 WBC (Bld) 67.9 % Normal 47-70 [facility] Comment on above: Performed By: #### L 500.4100, L502.0250, L500.4050, L100.0100 #### [facility] [address] [place], [address] Nucleated RBC (Bld) [#/Vol] 0 10*3/uL Normal 0-5 [facility] Comment on above: Performed By: #### L 500.4100, L502.0250, L500.4050, L100.0100 #### [facility] [address] [place], [address] Platelet mean volume (Bld) [Entitic vol] 10.6 fL Normal 6.2-12.0 [facility] Comment on above: Performed By: #### L 500.4100, L502.0250, L500.4050, L100.0100 #### [facility] [address] [place], [address] Platelets (Bld) [#/Vol] 201 10*3/uL Normal 150-450 [facility] Comment on above: Performed By: #### L 500.4100, L502.0250, L500.4050, L100.0100 #### [facility] [address] [place], [address] RBC (Bld) [#/Vol] 5.27 10*6/uL Normal 4.6-6.2 [facility] Comment on above: Performed By: #### L 500.4100, L502.0250, L500.4050, L100.0100 #### [facility] [address] [place], [address] RDW SD 42.4 fl Normal 35.1-43.9 [facility] Comment on above: Performed By: #### L 500.4100, L502.0250, L500.4050, L100.0100 #### [facility] [address] [place], [address] WBC (Bld) [#/Vol] 8.1 10*3/uL Normal 4.4-11.0 [facility] Comment on above: Performed By: #### L 500.4100, L502.0250, L500.4050, L100.0100 #### [facility] [address] [place], [address] Calculated very low density lipoprotein (VLDL) cholesterol measurementOrdered By: Vicenta Serrano on 04-19-2025 Calculated very low density lipoprotein (VLDL) cholesterol measurement 46 mg/dL High 5-40 [facility] Carbon dioxide, total [Moles /volume] in Central venous bloodOrdered By: Vicenta Serrano on 04-19-2025 CO2 [Moles/Vol] 24.6 mmol/L 21.0-32.0 [facility] Chloride assayOrdered By: Carlos Serrano on 04-19-2025 Chloride [Moles/Vol] 106 mmol/L 98-108 [facility] Comprehensive Metabolic Prof ilon 04-19-2025 Albumin [Mass/Vol] 4.2 g/dL Normal 3.4-4.8 [facility] Comment on above: Performed By: #### L 500.4100, L502.0250, L500.4050, L100.0100 #### [facility] [address] [place], [address] Albumin/Globulin [Mass ratio] 1.5 {ratio} Normal 0.9-2.4 [facility] Comment on above: Performed By: #### L 500.4100, L502.0250, L500.4050, L100.0100 #### [facility] [address] [place], [address] ALK PHOS 70 U/L Normal 40-129 [facility] Comment on above: Performed By: #### L 500.4100, L502.0250, L500.4050, L100.0100 #### [facility] [address] [place], [address] ALT [Catalytic activity/Vol] 26 U/L Normal <=46 [facility] Comment on above: Performed By: #### L 500.4100, L502.0250, L500.4050, L100.0100 #### [facility] [address] [place], [address] AST [Catalytic activity/Vol] 18 U/L Normal <=37 [facility] Comment on above: Performed By: #### L 500.4100, L502.0250, L500.4050, L100.0100 #### [facility] [address] [place], [address] Bilirubin [Mass/Vol] 0.22 mg/dL Normal 0.00-1.30 [facility] Comment on above: Performed By: #### L 500.4100, L502.0250, L500.4050, L100.0100 #### [facility] [address] [place], [address] BUN/CRE 23.1 RATIO High 10-20 [facility] Comment on above: Performed By: #### L 500.4100, L502.0250, L500.4050, L100.0100 #### [facility] [address] [place], [address] Calcium [Mass/Vol] 9.8 mg/dL Normal 7.6-11.0 [facility] Comment on above: Performed By: #### L 500.4100, L502.0250, L500.4050, L100.0100 #### [facility] [address] [place], [address] Chloride [Moles/Vol] 106 mmol/L Normal 98-108 [facility] Comment on above: Performed By: #### L 500.4100, L502.0250, L500.4050, L100.0100 #### [facility] [address] [place], [address] CO2 [Moles/Vol] 24.6 mmol/L Normal 21.0-32.0 [facility] Comment on above: Performed By: #### L 500.4100, L502.0250, L500.4050, L100.0100 #### [facility] [address] [place], [address] Creatinine [Mass/Vol] 0.86 mg/dL Normal 0.70-1.20 [facility] Comment on above: Performed By: #### L 500.4100, L502.0250, L500.4050, L100.0100 #### [facility] [address] [place], [address] GAP 11 Normal 5-15 [facility] Comment on above: Performed By: #### L 500.4100, L502.0250, L500.4050, L100.0100 #### [facility] [address] [place], [address] GFR/1.73 sq M.predicted among non-blacks MDRD (S/P/Bld) [Vol rate/Area] 98 mL/min/{1.73_m2} Normal >60 [facility] Comment on above: Result Comment: mL/m in/1.73m2 CKD-EPI Creatinine Equation (2020) Performed By: #### L 500.4100, L502.0250, L500.4050, L100.0100 #### [facility] [address] [place], [address] Globulin (S) [Mass/Vol] 2.9 g/dL Normal 2.2-4.2 [facility] Comment on above: Performed By: #### L 500.4100, L502.0250, L500.4050, L100.0100 #### [facility] [address] [place], [address] Glucose [Mass/Vol] 150 mg/dL High 70-99 [facility] Comment on above: Performed By: #### L 500.4100, L502.0250, L500.4050, L100.0100 #### [facility] [address] [place], [address] Potassium [Moles/Vol] 4.7 mmol/L Normal 3.3-5.1 [facility] Comment on above: Performed By: #### L 500.4100, L502.0250, L500.4050, L100.0100 #### [facility] [address] [place], [address] Sodium [Moles/Vol] 141 mmol/L Normal 133-145 [facility] Comment on above: Performed By: #### L 500.4100, L502.0250, L500.4050, L100.0100 #### [facility] [address] [place], [address] T PROT 7.1 g/dL Normal 5.9-8.4 [facility] Comment on above: Performed By: #### L 500.4100, L502.0250, L500.4050, L100.0100 #### [facility] [address] [place], [address] Urea nitrogen [Mass/Vol] 20 mg/dL High 4-19 [facility] Comment on above: Performed By: #### L 500.4100, L502.0250, L500.4050, L100.0100 #### [facility] [place], [address] Eosinophil percentageOrdered By: Vicenta Serrano on 04-19-2025 Eosinophils/100 WBC (Bld) 1.6 % 0-5 [facility] Erythrocyte distribution wid th ratioOrdered By: Vicenta Serrano on 04-19-2025 Erythrocyte distribution width (RBC) [Ratio] 13.4 % 11.6-14.6 [facility] Erythrocyte distribution wid th standard deviationOrdered By: Vicenta Serrano on 04-19-2025 Erythrocyte distribution width (RBC) [Ratio] 42.4 fl 35.1-43.9 [facility] Glomerular filtration rate ( GFR) estimation/1.73 sq m using serum, plasma, or whole bOrdered By: Vicentakendrick Serrano on 04-19-2025 GFR/1.73 sq M.predicted among non-blacks MDRD (S/P/Bld) [Vol rate/Area] 98 mL/min/{1.73_m2} >60 [facility] Comment on above: mL/min/1.73m2 CKD-EP I Creatinine Equation (2020) Hematocrit Auto (Bld) [Volum e fraction]Ordered By: Vicenta Serrano on 04-19-2025 Hematocrit (Bld) [Volume fraction] 45.7 % 40-54 [facility] Hemoglobin measurementOrdere d By: Vicenta Serrano on 04-19-2025 Hemoglobin (Bld) [Mass/Vol] 15.2 g/dL 13.0-16.5 [facility] Immature granulocytes/100 WB C Auto (Bld)Ordered By: Vicenta Serrano on 04-19-2025 Immature granulocytes/100 WBC (Bld) 0.500 % 0.0-0.9 [facility] Comment on above: IG% - Immature Granu locytes (promyelocytes, myelocytes and metamyelocytes) > 1% indicates that a LEFT SHIFT is Present. LDL calc ser/plasOrdered By: Vicenta Serrano on 04-19-2025 Cholesterol in LDL [Mass/Vol] 110 mg/dL [facility] Comment on above: Wahkslfedy=864-171 m g/dL & Higher Kmcq=999 mg/dL or greaterFriedwald Equation for LDL-C Laboratory - Chemistry and C hemistry - challengeOrdered By: Vicenta Serrano on 04-19-2025 AST [Catalytic activity/Vol] 18 U/L <38 [facility] Lipid Profileon 04-19-2025 CHOL:HDL 6.47 Normal [facility] Comment on above: Performed By: #### L 500.4100, L502.0250, L500.4050, L100.0100 #### [facility] [address] [place], [address] Cholesterol [Mass/Vol] 185 mg/dL Normal <=200 [facility] Comment on above: Result Comment: Chol esterol level, Desirable <200 mg/dL Borderline high cholesterol 200-239 mg/dL High cholesterol >=240 mg/dL Recommendations of the NCEP Adult Treatment Panel for the following risk-cutoff thresholds for the [place] population. Performed By: #### L 500.4100, L502.0250, L500.4050, L100.0100 #### [facility] [address] [place], [address] Cholesterol in HDL [Mass/Vol] 29 mg/dL Low [facility] Comment on above: Result Comment: Ivana onal Cholesterol Education Program (NCEP) guidelines: <40 mg/dL: Low HDL-cholesterol (major risk factor for CHD) >= 60 mg/dL: High HDL-cholesterol (negative risk factor for CHD) HDL-cholesterol is affected by a number of factors, e.g. smoking, exercise, hormones, sex and age. Performed By: #### L 500.4100, L502.0250, L500.4050, L100.0100 #### [facility] [address] [place], [address] Cholesterol in LDL [Mass/Vol] 110 mg/dL Normal [facility] Comment on above: Result Comment: Bord btlnbc=830-119 mg/dL Higher Cshb=874 mg/dL or greater Friedwald Equation for LDL-C Performed By: #### L 500.4100, L502.0250, L500.4050, L100.0100 #### [facility] [address] [place], [address] Cholesterol in VLDL [Mass/Vol] 46 mg/dL High 5-40 [facility] Comment on above: Performed By: #### L 500.4100, L502.0250, L500.4050, L100.0100 #### [facility] [address] [place], [address] Triglyceride [Mass/Vol] 231 mg/dL High [facility] Comment on above: Result Comment: The drugs N-Acetylcysteine and Metamizole may falsely depress this assay. Normal range: <150 mg/dL Borderline High: 150-199 mg/dL High: 200-499 mg/dL Very High: >500 mg/dL Performed By: #### L 500.4100, L502.0250, L500.4050, L100.0100 #### [facility] [address] [place], [address] MCV (mean corpuscular volume ) determinationOrdered By: Vicenta Serrano on 04-19-2025 MCV (RBC) [Entitic vol] 86.7 fL 80-94 [facility] Mean corpuscular hemoglobin (MCH) determinationOrdered By: Vicenta Serrano on 04-19-2025 MCH (RBC) [Entitic mass] 28.8 pg 27.0-32.0 [facility] Mean corpuscular hemoglobin concentration (MCHC) determinationOrdered By: Vicenat Serrano on 04-19-2025 MCHC (RBC) [Mass/Vol] 33.3 g/dL 32-36 [facility] Mean platelet volume determi nationOrdered By: Vicenta Serrano on 04-19-2025 Platelet mean volume (Bld) [Entitic vol] 10.6 fL 6.2-12.0 [facility] Microalb:Creat Ratio,Random URon 09-05-2025 Creatinine [Mass/Vol] 47.40 mg/dL Normal 39.00-259.00 [facility] Comment on above: Performed By: #### L 500.4100, L502.0250, L500.4050, L100.0100 #### [facility] [address] [place], [address] MALB:CREAT 28.9 mg/g CRE Normal <30 mg/g CRE [facility] Comment on above: Performed By: #### L 500.4100, L502.0250, L500.4050, L100.0100 #### [facility] [address] [place], [place], [address] MICROALBUMIN,UR 13.7 mg/L Normal <20 mg/L [facility] Comment on above: Performed By: #### L 500.4100, L502.0250, L500.4050, L100.0100 #### [facility] [address] [place], [place], [id number] Monocyte percentageOrdered B y: Vicenta Serrano on 04-19-2025 Monocytes/100 WBC (Bld) 7.3 % 0-10 [facility] Neutrophil percentageOrdered By: Vicenta Serrano on 04-19-2025 Neutrophils/100 WBC (Bld) 67.9 % 47-70 [facility] Nucleated red blood cell per centageOrdered By: Vicenta Serrano on 04-19-2025 Nucleated RBC/100 WBC (Bld) [Ratio] 0 % 0-5 [facility] Platelet countOrdered By: Carlos Serrano on 04-19-2025 Platelets (Bld) [#/Vol] 201 10*3/uL 150-450 [facility] Potassium measurement (mass/ volume)Ordered By: Vicenta Serrano on 04-19-2025 Potassium (Unsp spec) [Mass/Vol] 4.7 mmol/L 3.3-5.1 [facility] RBC Auto (Bld) [#/Vol]Ordere d By: Vicenta Serrano on 04-19-2025 RBC (Bld) [#/Vol] 5.27 10*6/uL 4.6-6.2 [facility] Random urine creatinine rob urement (mass/volume)Ordered By: Vicenta Serrano on 04-19-2025 Creatinine Unsp time (U) [Mass/Vol] 47.40 mg/dL 39.00-259.00 [facility] Screening total cholesterol/ high density lipoprotein (HDL) cholesterol ratioOrdered By: Vicenta Serrano on 04-19-2025 Cholesterol.total/Gunjan sterol in HDL [Mass ratio] 6.47 {ratio} [facility] Serum creatinine measurement (mass/volume)Ordered By: Vicenta Serrano on 04-19-2025 Creatinine [Mass/Vol] 0.86 mg/dL 0.70-1.20 [facility] Serum globulin measurementOr dered By: Vicenta Serrano on 04-19-2025 Globulin (S) [Mass/Vol] 2.9 g/dL 2.2-4.2 [facility] Serum glucose measurement (m ass/volume)Ordered By: Vicenta Serrano on 04-19-2025 Glucose [Mass/Vol] 150 mg/dL High 70-99 [facility] Serum or plasma alanine kraus otransferase (ALT) measurementOrdered By: Vicenta Serrano on 04-19-2025 ALT [Catalytic activity/Vol] 26 U/L <47 [facility] Serum or plasma albumin rob urement (mass/volume)Ordered By: Vicenta Serrano on 04-19-2025 Albumin [Mass/Vol] 4.2 g/dL 3.4-4.8 [facility] Serum or plasma albumin/glob ulin mass ratioOrdered By: Vicenta Serrano on 04-19-2025 Albumin/Globulin [Mass ratio] 1.5 {ratio} 0.9-2.4 [facility] Serum or plasma alkaline rafael sphatase measurementOrdered By: Vicenta Serrano on 04-19-2025 ALP [Catalytic activity/Vol] 70 U/L 40-129 [facility] Serum or plasma calcium rob urement (mass/volume)Ordered By: Vicenta Serrano on 04-19-2025 Calcium [Mass/Vol] 9.8 mg/dL 7.6-11.0 [facility] Serum or plasma cholesterol in HDL measurement (mass/volume)Ordered By: Vicenta Serrano on 04-19-2025 Cholesterol in HDL [Mass/Vol] 29 mg/dL Low >40 [facility] Comment on above: National Cholesterol Education Program (NCEP) guidelines:<40 mg/dL: Low HDL-cholesterol (major risk factor for CHD)>= 60 mg/dL: High HDL-cholesterol (negative risk factor for CHD)HDL-cholesterol is affected by a number of factors, e.g. smoking, exercise, hormones, sex and age. Serum or plasma cholesterol measurement (mass/volume)Ordered By: Vicenta Serrano on 04-19-2025 Cholesterol [Mass/Vol] 185 mg/dL <201 [facility] Comment on above: Cholesterol level, D esirable <200 mg/dLBorderline high cholesterol 200-239 mg/dLHigh cholesterol >=240 mg/dLRecommendations of the NCEP Adult Treatment Panel for the following risk-cutoff thresholds for the [place] population. Serum or plasma urea nitroge n measurement (mass/volume)Ordered By: Vicenta Serrano on 04-19-2025 Urea nitrogen [Mass/Vol] 20 mg/dL High 4-19 [facility] Sodium levelOrdered By: Douglas Serrano on 04-19-2025 Sodium [Moles/Vol] 141 mmol/L 133-145 [facility] Total proteinOrdered By: Andres Serrano on 04-19-2025 Protein [Mass/Vol] 7.1 g/dL 5.9-8.4 [facility] Triglycerides measurementOrd ered By: Vicenta Serrano on 04-19-2025 Triglyceride [Mass/Vol] 231 mg/dL High <199 [facility] Comment on above: The drugs N-Acetylcy steine and Metamizole may falsely depress this assay. Normal range: <150 mg/dLBorderline High: 150-199 mg/dLHigh: 200-499 mg/dLVery High: >500 mg/dL Urine albumin measurement wi detection limit of 20 mg/L or less (mass/volume)Ordered By: Vicenta Serrano on 04-19-2025 Albumin DL <= 20 mg/L (U) [Mass/Vol] 13.7 mg/L <20 mg/L [facility] White blood cell (WBC) count Ordered By: Vicenta Serrano on 04-19-2025 WBC (Bld) [#/Vol] 8.1 10*3/uL 4.4-11.0 [facility] Lyme Antibodies,W [place] Lyme Additional Comment Normal . [facility] Comment on above: Result Comment: Per CDC criteria, the Lyme IgG Immunoblot is interpreted as positive if IgG-class antibodies are detected to 5 or more B. burgdorferi proteins, and the Lyme IgM Immunoblot is interpreted as positive if IgM-class antibodies are detected to 2 or more B. burgdorferi proteins. Immunoblot patterns not meeting these criteria should not be interpreted as positive. Epitopes from certain B. burgdorferi proteins (e.g., p41) are conserved across other bacteria, which may lead to the detection of IgM-and/or IgG class antibodies on the Lyme disease immunoblots in patients without Lyme disease. Immunoblot should only be ordered on specimens that are positive or equivocal by an FDA-licensed Lyme disease antibody screening test (e.g., EIA). Results of the Lyme IgM immunoblot should not be considered in patients with 30 or more days of symptoms. Performed at: [address] [id number] [employer]: Frank Riggins MD, Phone: [phone] Performed By: #### L 7000.5800 #### [facility] [address] [facility] [place], [place], [id number] LYME IgG INTERP Negative Normal Negative [facility] Comment on above: Performed By: #### L 7000.5800 #### [facility] [address] [place], [place], [id number] LYME IgM INTERP Negative Normal Negative [facility] Comment on above: Result Comment: Enid francis Note: Lyme immunoblot alone is not recommended for the diagnosis of Lyme disease. Current guidelines recommend the use of a two-tiered approach to Lyme serology testing to improve the sensitivity and specificity of testing. [facility] offers test code 384637 Lyme Disease Serology with Reflex to aid in the diagnosis of Lyme Disease. Performed By: #### L 6999.5800 #### [facility] [address] [place], [address] P18 Ab Present Normal . [facility] Comment on above: Performed By: #### L 0 #### [facility] [address] [place], [address] P23 Ab Absent Normal . [facility] Comment on above: Performed By: #### L 0 #### [facility] [address] [place], [address] P28 Ab Absent Normal . [facility] Comment on above: Performed By: #### L 6999.0 #### [facility] [address] [place], [address] P30 Ab Absent Normal . [facility] Comment on above: Performed By: #### L 5800 #### [facility] [address] [place], [address] P39 Ab Absent Normal . [facility] Comment on above: Performed By: #### L 5800 #### [facility] [address] [place], [address] P41 Ab Absent Normal . [facility] Comment on above: Performed By: #### L 0 #### [facility] [address] [place], [address] P45 Ab Absent Normal . [facility] Comment on above: Performed By: #### L 0 #### [facility] [address] [place], [address] P58 Ab Present Normal . [facility] Comment on above: Performed By: #### L #### [facility] [address] [place], [address] P66 Ab Absent Normal . [facility] Comment on above: Performed By: #### L 7000.5800 #### [facility] [address] [place], [address] P93 Ab Present Normal . [facility] Comment on above: Performed By: #### L 7000.5800 #### [facility] [address] [place], [address] No Panel InformationOrdered By: Vicenta Serrano on 03-08-2025 Lyme Disease IgG Ab 30 kDa Band Absent . [facility] Lyme Disease IgG Ab 93 kDa Band Present . [facility] Lyme Disease IgG [place] Interp Negative Negative [facility] Lyme Disease IgM Ab ([place]ot) Negative Negative [facility] Comment on above: Please Note: Lyme im munoblot alone is not recommended forthe diagnosis of Lyme disease. Current guidelines recommendthe use of a two-tiered approach to Lyme serology testingto improve the sensitivity and specificity of testing.[facility] offers test code 767294 Lyme Disease Serology withReflex to aid in the diagnosis of Lyme Disease. Lyme Disease Western [place]ot Comments Comment . [facility] Comment on above: Per CDC criteria, th e Lyme IgG Immunoblot is interpreted aspositive if IgG-class antibodies are detected to 5 or moreB. burgdorferi proteins, and the Lyme IgM Immunoblot isinterpreted as positive if IgM-class antibodies aredetected to 2 or more B. burgdorferi proteins. Immunoblotpatterns not meeting these criteria should not beinterpreted as positive. Epitopes from certain B.burgdorferi proteins (e.g., p41) are conserved across otherbacteria, which may lead to the detection of IgM-and/or IgGclass antibodies on the Lyme disease immunoblots inpatients without Lyme disease. Immunoblot should only beordered on specimens that are positive or equivocal by anFDA-licensed Lyme disease antibody screening test (e.g.,EIA). Results of the Lyme IgM immunoblot should not beconsidered in patients with 30 or more days of symptoms.Performed at: [address] [id number] Director: Frank Riggins MD, Phone: [phone] CBC W/Diff, Automatedon 11-0 -2023 Absolute Lymph 1.91 X10 3/uL Normal 0.83-4.51 [facility] Comment on above: Performed By: #### L 500.4050, L500.4100, L502.0250, L100.0100 #### [facility] [address] [place], [address] Absolute Neut 5.4 X10 3/uL Normal 2.0-7.7 [facility] Comment on above: Performed By: #### L 500.4050, L500.4100, L502.0250, L100.0100 #### [facility] [address] [place], [address] Basophils/100 WBC (Bld) 0.4 % Normal 0-1 [facility] Comment on above: Performed By: #### L 500.4050, L500.4100, L502.0250, L100.0100 #### [facility] [address] [place], [address] Eosinophils/100 WBC (Bld) 2.1 % Normal 0-5 [facility] Comment on above: Performed By: #### L 500.4050, L500.4100, L502.0250, L100.0100 #### [facility] [address] [place], [address] Erythrocyte distribution width (RBC) [Ratio] 13.2 % Normal 11.6-14.6 [facility] Comment on above: Performed By: #### L 500.4050, L500.4100, L502.0250, L100.0100 #### [facility] [address] [place], [address] Hematocrit (Bld) [Volume fraction] 44.2 % Normal 40-54 [facility] Comment on above: Performed By: #### L 500.4050, L500.4100, L502.0250, L100.0100 #### [facility] [address] [place], [address] Hemoglobin (Bld) [Mass/Vol] 14.7 g/dL Normal 13.0-16.5 [facility] Comment on above: Performed By: #### L 500.4050, L500.4100, L502.0250, L100.0100 #### [facility] [address] [place], [address] IG% 0.400 Normal 0.0-0.9 [facility] Comment on above: Result Comment: IG% - Immature Granulocytes (promyelocytes, myelocytes and metamyelocytes) > 1% indicates that a LEFT SHIFT is Present. Performed By: #### L 500.4050, L500.4100, L502.0250, L100.0100 #### [facility] [address] [place], [address] Lymphocytes/100 WBC (Bld) 23.7 % Normal 19-41 [facility] Comment on above: Performed By: #### L 500.4050, L500.4100, L502.0250, L100.0100 #### [facility] [address] [place], [address] MCH (RBC) [Entitic mass] 28.3 pg Normal 27.0-32.0 [facility] Comment on above: Performed By: #### L 500.4050, L500.4100, L502.0250, L100.0100 #### [facility] [address] [place], [address] MCHC (RBC) [Mass/Vol] 33.3 g/dL Normal 32-36 [facility] Comment on above: Performed By: #### L 500.4050, L500.4100, L502.0250, L100.0100 #### [facility] [address] [place], [address] MCV (RBC) [Entitic vol] 85.2 fL Normal 80-94 [facility] Comment on above: Performed By: #### L 500.4050, L500.4100, L502.0250, L100.0100 #### [facility] [address] [place], [address] Monocytes/100 WBC (Bld) 6.5 % Normal 0-10 [facility] Comment on above: Performed By: #### L 500.4050, L500.4100, L502.0250, L100.0100 #### [facility] [address] [place], [address] Neutrophils/100 WBC (Bld) 66.9 % Normal 47-70 [facility] Comment on above: Performed By: #### L 500.4050, L500.4100, L502.0250, L100.0100 #### [facility] [address] [place], [address] Nucleated RBC (Bld) [#/Vol] 0 10*3/uL Normal 0-5 [facility] Comment on above: Performed By: #### L 500.4050, L500.4100, L502.0250, L100.0100 #### [facility] [address] [place], [address] Platelet mean volume (Bld) [Entitic vol] 10.8 fL Normal 6.2-12.0 [facility] Comment on above: Performed By: #### L 500.4050, L500.4100, L502.0250, L100.0100 #### [facility] [address] [place], [address] Platelets (Bld) [#/Vol] 214 10*3/uL Normal 150-450 [facility] Comment on above: Performed By: #### L 500.4050, L500.4100, L502.0250, L100.0100 #### [facility] [address] [place], [address] RBC (Bld) [#/Vol] 5.19 10*6/uL Normal 4.6-6.2 [facility] Comment on above: Performed By: #### L 500.4050, L500.4100, L502.0250, L100.0100 #### [facility] [address] [place], [address] RDW SD 40.9 fl Normal 35.1-43.9 [facility] Comment on above: Performed By: #### L 500.4050, L500.4100, L502.0250, L100.0100 #### [facility] [address] [place], [address] WBC (Bld) [#/Vol] 8.1 10*3/uL Normal 4.4-11.0 [facility] Comment on above: Performed By: #### L 500.4050, L500.4100, L502.0250, L100.0100 #### [facility] [address] [place], [address] Comprehensive Metabolic [facility] 06-22-2024 Albumin [Mass/Vol] 3.6 g/dL Normal 3.2-5.0 [facility] Comment on above: Performed By: #### L 500.4050, L500.4100, L502.0250, L100.0100 #### [facility] [address] [place], [address] Albumin/Globulin [Mass ratio] 1.0 {ratio} Normal 0.9-2.4 [facility] Comment on above: Performed By: #### L 500.4050, L500.4100, L502.0250, L100.0100 #### [facility] [address] [place], [address] ALK P 79 U/L Normal 45-117 [facility] Comment on above: Performed By: #### L 500.4050, L500.4100, L502.0250, L100.0100 #### [facility] [address] [place], [address] ALT [Catalytic activity/Vol] 27 U/L Normal 16-61 [facility] Comment on above: Performed By: #### L 500.4050, L500.4100, L502.0250, L100.0100 #### [facility] [address] [place], [address] AST [Catalytic activity/Vol] 12 U/L Low 15-37 [facility] Comment on above: Performed By: #### L 500.4050, L500.4100, L502.0250, L100.0100 #### [facility] [address] [place], [address] Bilirubin [Mass/Vol] 0.30 mg/dL Normal 0.20-1.00 [facility] Comment on above: Result Comment: For patients on eltrombopag therapy, use of Dimension [place] TBIL is not recommended. Performed By: #### L 500.4050, L500.4100, L502.0250, L100.0100 #### [facility] [address] [place], [address] BUN/CRE 14.5 RATIO Normal 10-20 [facility] Comment on above: Performed By: #### L 500.4050, L500.4100, L502.0250, L100.0100 #### [facility] [address] [place], [address] CA,Total 8.9 mg/dL Normal 8.5-10.1 [facility] Comment on above: Performed By: #### L 500.4050, L500.4100, L502.0250, L100.0100 #### [facility] [address] [place], [address] Chloride [Moles/Vol] 108 mmol/L High 98-107 [facility] Comment on above: Performed By: #### L 500.4050, L500.4100, L502.0250, L100.0100 #### [facility] [address] [place], [address] CO2 [Moles/Vol] 26.0 mmol/L Normal 21.0-32.0 [facility] Comment on above: Performed By: #### L 500.4050, L500.4100, L502.0250, L100.0100 #### [facility] [address] [place], [address] Creatinine [Mass/Vol] 0.90 mg/dL Normal 0.70-1.30 [facility] Comment on above: Result Comment: The validity of the calculated GFR GFRAA in patients over 70 years has not been determined. Clinical correlation is essential. Performed By: #### L 500.4050, L500.4100, L502.0250, L100.0100 #### [facility] [address] [place], [address] EST GFR - AA 110 mL/min Normal >60 [facility] Comment on above: Result Comment: Afri can Lithuanian GFR Calc Performed By: #### L 500.4050, L500.4100, L502.0250, L100.0100 #### [facility] [address] [place], [address] GAP 4 Low 5-15 [facility] Comment on above: Performed By: #### L 500.4050, L500.4100, L502.0250, L100.0100 #### [facility] [address] [place], [address] GFR/1.73 sq M.predicted among non-blacks MDRD (S/P/Bld) [Vol rate/Area] 91 mL/min/{1.73_m2} Normal >60 [facility] Comment on above: Result Comment: Non- GFR Calc Performed By: #### L 500.4050, L500.4100, L502.0250, L100.0100 #### [facility] [address] [place], [address] Globulin (S) [Mass/Vol] 3.7 g/dL Normal 2.2-4.2 [facility] Comment on above: Performed By: #### L 500.4050, L500.4100, L502.0250, L100.0100 #### [facility] [address] [place], [address] Glucose [Mass/Vol] 168 mg/dL High 74-106 [facility] Comment on above: Result Comment: Fast ing Glucose result greater than or equal to 126 mg/dL suggests DIABETES MELLITUS per A.D.A. criteria. Performed By: #### L 500.4050, L500.4100, L502.0250, L100.0100 #### [facility] [address] [place], [address] Potassium [Moles/Vol] 4.1 mmol/L Normal 3.5-5.1 [facility] Comment on above: Performed By: #### L 500.4050, L500.4100, L502.0250, L100.0100 #### [facility] [address] [place], [address] Sodium [Moles/Vol] 138 mmol/L Normal 136-145 [facility] Comment on above: Performed By: #### L 500.4050, L500.4100, L502.0250, L100.0100 #### [facility] [address] [place], [address] T PROT 7.3 g/dL Normal 6.4-8.2 [facility] Comment on above: Performed By: #### L 500.4050, L500.4100, L502.0250, L100.0100 #### [facility] [address] [place], [address] Urea nitrogen [Mass/Vol] 13 mg/dL Normal 7-18 [facility] Comment on above: Performed By: #### L 500.4050, L500.4100, L502.0250, L100.0100 #### [facility] [address] [place], [address] Lipid Profileon 06-22-2024 Cholesterol [Mass/Vol] 177 mg/dL Normal 200 [facility] Comment on above: Result Comment: <200 mg/dL Desirable 200-240 mg/dL Borderline >240 mg/dL High Risk Performed By: #### L 500.4050, L500.4100, L502.0250, L100.0100 #### [facility] [address] [place], [address] Cholesterol in HDL [Mass/Vol] 34 mg/dL Low [facility] Comment on above: Result Comment: The drugs N-Acetylcysteine and Metamizole may falsely depress this assay. Reference Range HDL <40 mg/dL Low HDL Cholesterol HDL >or= 60 mg/dL High HDL Cholesterol Performed By: #### L 500.4050, L500.4100, L502.0250, L100.0100 #### [facility] [address] [place], [address] Cholesterol in LDL [Mass/Vol] 119 mg/dL Normal 0-130 [facility] Comment on above: Performed By: #### L 500.4050, L500.4100, L502.0250, L100.0100 #### [facility] [address] [place], [address] Cholesterol in VLDL [Mass/Vol] 24 mg/dL Normal 5-40 [facility] Comment on above: Performed By: #### L 500.4050, L500.4100, L502.0250, L100.0100 #### [facility] [address] [place], [address] Triglyceride [Mass/Vol] 118 mg/dL Normal [facility] Comment on above: Result Comment: The drugs N-Acetylcysteine and Metamizole may falsely depress this assay. Serum Triglycerides Reference Interval Normal <150 mg/dL Borderline high 150 - 199 mg/dL High 200 - 499 mg/dL Very High > or = 500 mg/dL Performed By: #### L 500.4050, L500.4100, L502.0250, L100.0100 #### [facility] [address] [place], [address] Microalb:Creat Ratio,Random URon 06-22-2024 Creatinine [Mass/Vol] 50.20 mg/dL Normal NO RAN GE EST. [facility] Comment on above: Performed By: #### L 500.4050, L500.4100, L502.0250, L100.0100 #### [facility] [address] [place], [address] MALB:CRE 84.5 mg/g CRE High <30 mg/g CRE [facility] Comment on above: Performed By: #### L 500.4050, L500.4100, L502.0250, L100.0100 #### [facility] [address] [place], [address] MICROALBUMIN,UR 42.4 mg/L Normal NO RANGE EST. [facility] Comment on above: Performed By: #### L 500.4050, L500.4100, L502.0250, L100.0100 #### [facility] [address] [place], [address] Basophil percentageOrdered B y: Robson Jenifer on 03-11-2023 Bilirubin [Mass/Vol] 0.20 mg/dL 0.20-1.00 [facility] Comment on above: For patients on eltr ombopag therapy, use of Dimension [place] TBIL is not recommended. Chloride [Moles/Vol] 107 mmol/L 98-107 [facility] Cholesterol [Mass/Vol] 177 mg/dL <200 [facility] Comment on above: <200 mg/dL Desirable 200-240 mg/dL Borderline >240 mg/dL High Risk Glucose [Mass/Vol] 143 mg/dL 74-106 [facility] Comment on above: Fasting Glucose resu lt greater than or equal to 126 mg/dL suggests DIABETES MELLITUS per A.D.A. criteria. Potassium [Moles/Vol] 4.6 mmol/L 3.5-5.1 [facility] Comment on above: Slight Hemolysis, Re sult may be falsely increased. Protein [Mass/Vol] 7.5 g/dL 6.4-8.2 [facility] Sodium [Moles/Vol] 139 mmol/L 136-145 [facility] Triglyceride [Mass/Vol] 166 mg/dL <199 [facility] Comment on above: The drugs N-Acetylcy steine and Metamizole may falsely depress this assay.Serum Triglycerides Reference Interval Normal <150 mg/dL Borderline high 150 - 199 mg/dL High 200 - 499 mg/dL Very High > or = 500 mg/dL Direct bilirubinOrdered By: [place] Jenifer on 03-11-2023 Bilirubin.direct [Mass/Vol] 0.07 mg/dL 0.00-0.30 [facility] - Chemistry and C hemistry - challengeOrdered By: [place] Jenifer on 03-11-2023 ALP [Catalytic activity/Vol] 74 U/L 45-117 [facility] ALT [Catalytic activity/Vol] 34 U/L 16-61 [facility] CO2 [Moles/Vol] 26.0 mmol/L 21.0-32.0 [facility] Globulin (S) [Mass/Vol] 3.7 g/dL 2.2-4.2 [facility] Urea nitrogen/Creatinine [Mass ratio] 20.9 mg/mg 10-20 [facility] No Panel InformationOrdered By: Robson Burgess on 03-11-2023 Estimated GFR (MDRD) Amer 103 mL/min >60 [facility] Comment on above: GFR Calc Estimated GFR (MDRD) Non-Af Amer 85 mL/min >60 [facility] Comment on above: Non- GFR Calc Thyroid Stimulating Hormone (TSH) 1.64 uIU/mL 0.358-3.74 [facility] Serum or plasma albumin rob urement (mass/volume)Ordered By: Robson Burgess on 03-11-2023 Albumin [Mass/Vol] 3.8 g/dL 3.2-5.0 [facility] Serum or plasma calcium rob urement (mass/volume)Ordered By: Robson Burgess on 03-11-2023 Calcium [Mass/Vol] 9.2 mg/dL 8.5-10.1 [facility] Serum or plasma cholesterol in HDL measurement (mass/volume)Ordered By: Robson Burgess on 03-11-2023 Cholesterol in HDL [Mass/Vol] 32 mg/dL >40 [facility] Comment on above: The drugs N-Acetylcy steine and Metamizole may falsely depress this assay. Reference Range HDL <40 mg/dL Low HDL Cholesterol HDL >or= 60 mg/dL High HDL Cholesterol Serum or plasma cholesterol in VLDL measurement (mass/volume)Ordered By: Robson Burgess on 03-11-2023 Cholesterol in VLDL [Mass/Vol] 33 mg/dL 5-40 [facility] Serum or plasma creatinine m easurement (mass/volume)Ordered By: Robson Burgess on 03-11-2023 Creatinine [Mass/Vol] 0.96 mg/dL 0.70-1.30 [facility] Comment on above: The validity of the calculated GFR & GFRAA in patients over 70 years has not been determined. Clinical correlation is essential. Serum or plasma low density lipoprotein (LDL) cholesterol measurement (mass/volume)Ordered By: Robson Burgess on 03-11-2023 Cholesterol in LDL [Mass/Vol] 112 mg/dL 0-130 [facility] Serum or plasma urea nitroge n measurement (mass/volume)Ordered By: Robson Burgess on 03-11-2023 Urea nitrogen [Mass/Vol] 20 mg/dL 7-18 [facility] Thin prep Papanicolaou smear with manual screeningOrdered By: Robson Burgess on 03-11-2023 Thin prep Papanicolaou smear with manual screening 22 U/L 15-37 [facility] Comment on above: Slight Hemolysis, Re sult may be falsely increased. Thin prep Papanicolaou smear with manual screening 6 5-15 [facility] Basophil percentageon 2021 Bilirubin [Mass/Vol] 0.30 mg/dL 0.20-1.00 [facility] Work Phone: Comment on above: For patients on eltr ombopag therapy, use of Dimension [place] TBIL is not recommended. Chloride [Moles/Vol] 104 mmol/L 98-107 [facility] Work Phone: Glucose [Mass/Vol] 175 mg/dL 74-106 [facility] Work Phone: Comment on above: Fasting Glucose resu lt greater than or equal to 126 mg/dL suggests DIABETES MELLITUS per A.D.A. criteria. Potassium [Moles/Vol] 4.9 mmol/L 3.5-5.1 [facility] Work Phone: Protein [Mass/Vol] 7.8 g/dL 6.4-8.2 [facility] Work Phone: [phone] Sodium [Moles/Vol] 139 mmol/L 136-145 [facility] Work Phone: Laboratory - Chemistry and C hemistry - challengeon 07-02-2022 ALP [Catalytic activity/Vol] 80 U/L 45-117 [facility] Work Phone: ALT [Catalytic activity/Vol] 41 U/L 16-61 [facility] Work Phone: CO2 [Moles/Vol] 30.0 mmol/L 21.0-32.0 [facility] Work Phone: [phone] Globulin (S) [Mass/Vol] 3.9 g/dL 2.2-4.2 [facility] Work Phone: Urea nitrogen/Creatinine [Mass ratio] 16.9 mg/mg 10-20 [facility] Work Phone: No Panel Informationon 07-02 Estimated GFR (MDRD) Amer 81 mL/min >60 [facility] Work Phone: Comment on above: GFR Calc Estimated GFR (MDRD) Non-Af Amer 67 mL/min >60 [facility] Work Phone: Comment on above: Non- GFR Calc Serum or plasma albumin rob urement (mass/volume)on 07-02-2022 Albumin [Mass/Vol] 3.9 g/dL 3.2-5.0 [facility] Work Phone: Serum or plasma albumin/glob ulin mass ratioon 07-02-2022 Albumin/Globulin [Mass ratio] 1.0 {ratio} 0.9-2.4 [facility] Work Phone: Serum or plasma calcium rob urement (mass/volume)on 07-02-2022 Calcium [Mass/Vol] 9.4 mg/dL 8.5-10.1 [facility] Work Phone: Serum or plasma creatinine m easurement (mass/volume)on 07-02-2022 Creatinine [Mass/Vol] 1.18 mg/dL 0.70-1.30 [facility] Work Phone: Comment on above: The validity of the calculated GFR & GFRAA in patients over 70 years has not been determined. Clinical correlation is essential. Serum or plasma urea nitroge n measurement (mass/volume)on 07-02-2022 Urea nitrogen [Mass/Vol] 20 mg/dL 7-18 [facility] Work Phone: Thin prep Papanicolaou smear with manual screeningon 07-02-2022 Thin prep Papanicolaou smear with manual screening 18 U/L 15-37 [facility] Work Phone: Thin prep Papanicolaou smear with manual screening 5 5-15 [facility] Work Phone: Office Visiton 04-07-2017 Documentation of current medications (procedure) Done Invalid Interpretation Code [facility] [employer] Phone: [phone] Fall risk assessment No Invalid Interpretation Code [facility] [employer] Phone: [phone] Clinical Lists Update: [employer] 01-26-2017 Left ventricular Ejection fraction 40-45 Invalid Interpretation Code [facility] Phone: [phone] Office Visiton 11-18-2016 Dietary management education, guidance, and counseling (procedure) yes Invalid Interpretation Code [facility] Work Phone: [phone] Documentation of current medications (procedure) Done Invalid Interpretation Code [facility] Work Phone: [phone] Protein mass conc Done [facility] Phone: [phone] Tobacco smoking status NHIS Former smoker [facility] Work Phone: [phone] Tobacco use CPHS Former smoker Invalid Interpretation Code [facility] Phone: [phone] Lab Report: Basic Metabolic Profile (BMP)on 08-17-2016 Anion gap 7 mmol/L Invalid Interpretation Code 5-15 [facility] Work Phone: [phone] Anion gap molar conc 7 mmol/L 5-[email or web address] [facility] Work Phone: [phone] Calcium mass conc 8.9 mg/dL Invalid Interpretation Code 8.5-10.1 [facility] Phone: [phone] Chloride molar conc 104 mmol/L Invalid Interpretation Code 98-107 [facility] Phone: [phone] CO2 26.0 mmol/L Invalid Interpretation Code 21.0-32.0 [facility] Work Phone: [phone] CO2 ppres (BldV) 26.0 mmol/L 21.0-32.0 [facility] Work Phone: [phone] Creatinine mass conc 1.12 mg/dL Invalid Interpretation Code 0.70-1.30 [facility] Phone: [phone] eGFR (non-black) 88 mL/min/{1.73_m2} Invalid Interpretation Code >60 [employer] Work Phone: [phone] EST GFR - AA 88 mL/min >60 [facility] Phone: [phone] GFR/1.73 sq M predicted among non-blacks MDRD vol rate/area (S/P/Bld) 73 mL/min/{1.73_m2} Invalid Interpretation Code >60 [employer] Work Phone: [phone] Glucose 99 mg/dL Invalid Interpretation Code 70-110 [facility] Work Phone: [phone] Glucose mass conc 99 mg/dL 70-110 [facility] Work Phone: [phone] Potassium molar conc 3.9 mmol/L Invalid Interpretation Code 3.5-5.1 [facility] Work Phone: [phone] Sodium molar conc 137 mmol/L Invalid Interpretation Code 136-145 [employer] Work Phone: [phone] Urea nitrogen mass conc 26 mg/dL High 7-18 [facility] [employer] Work Phone: [phone] Urea nitrogen/Creatinine mass ratio 23.2 RATIO High 10-20 [employer] Work Phone: [phone] Append: CR - Individual Emily tment PlanOriginal Ordering Provider: Henna 08-02-2016 Clinical consultation report (record artifact) [id number] Invalid Interpretation Code [facility] Work Phone: [phone] Clinical Lists Update: 05-18-2016 Magnesium mass conc 2.2 mg/dL Invalid Interpretation Code [facility] Work Phone: [phone] Clinical Lists Update: [facility]05-12-2016 Hemoglobin mass conc (Bld) 13.6 g/dL Invalid Interpretation Code [employer] Work Phone: [phone] Platelets 168 10*3/mm3 Invalid Interpretation Code [facility] Work Phone: [phone] Platelets #/vol (Bld) 168 10*3/mm3 [facility] [employer] Work Phone: [phone] WBC #/vol (Bld) 7.7 10*3/uL [employer] Work Phone: [phone] WBC (Leukocytes) 7.7 10*3/uL Invalid Interpretation Code [employer] Work Phone: [phone] Clinical Lists Update: [employer] 05-05-2016 aPTT Coag time (Bld) 30.8 s Invalid Interpretation Code [facility] Work Phone: [phone] Erythrocyte distribution width Ratio (RBC) 14.7 % High [facility] Work Phone: [phone] Erythrocytes (RBC) 4.72 10*6/uL Invalid Interpretation Code [facility] Work Phone: [phone] Hematocrit (HCT) 42.0 % Invalid Interpretation Code [facility] Work Phone: [phone] Hematocrit Volume Fraction (Bld) 42.0 % [facility] Work Phone: [phone] INR Coag RelTime (PPP) 1.3 {INR} [facility] Work Phone: [phone] INR in blood by coagulation 1.3 {INR} Invalid Interpretation Code [facility] Work Phone: [phone] MCH 28.0 pg Invalid Interpretation Code [facility] Work Phone: [phone] MCH Entitic mass (RBC) 28.0 pg [facility] Work Phone: [phone] MCHC 31.4 g/dL Low [facility] Work Phone: [phone] MCHC mass conc (RBC) 31.4 g/dL Low [facility] Work Phone: [phone] MCV 89.0 fL Invalid Interpretation Code [facility] Work Phone: [phone] MCV Entitic volume (RBC) 89.0 fL [facility] Work Phone: [phone] Platelet mean volume Entitic volume (Bld) 11.8 fL [facility] Work Phone: [phone] PMV by German 11.8 fL Invalid Interpretation Code [facility] Work Phone: [phone] Prothrombin time (PT) Coag time (PPP) 15.6 s High [facility] Work Phone: [phone] RBC #/vol (Bld) 4.72 10*6/uL [facility] Work Phone: [phone] RDW-CA 14.7 % High [facility] Work Phone: [phone] Clinical Lists Update: 05-03-2016 Cholesterol in HDL mass conc 27 mg/dL Low [facility] Work Phone: [phone] Cholesterol in LDL mass conc 58 mg/dL Invalid Interpretation Code [facility] Work Phone: [phone] Cholesterol mass conc 107 mg/dL Invalid Interpretation Code [facility] Work Phone: [phone] Lipoprotein.pre-beta mass conc 22 mg/dL Invalid Interpretation Code [facility] Work Phone: [phone] Triglyceride mass conc 112 mg/dL Invalid Interpretation Code [facility] Work Phone: [phone] Clinical Lists Update: 05-02-2016 Natriuretic peptide B mass conc (Bld) 719.3 pg/mL High [facility] Work Phone: [phone] Vital Signs Date Time Vital Sign Value Performing Clinician Facility 04-26-2025 10:24-0400 Body height 182.[address] Vicenta Serrano MD Work Phone[facility] 04-26-2025 07:08-0400 Body mass index (BMI) [Ratio] 42.3 kg/m2 Dr. Vicenta Serrano MD Work Phone: [facility] 04-26-2025 07:08-0400 Body weight 141.[address] Vicenta Serrano MD Work Phone: [facility] 04-26-2025 07:08-0400 Diastolic blood pressure 73 mm[Hg] Dr. Vicenta Serrano MD Work Phone: [facility] 04-26-2025 07:08-0400 Heart rate 77 /min Dr. Vicenta Serrano MD Work Phone: [facility] 04-26-2025 07:08-0400 Respiratory rate 18 /min Dr. Vicenta Serrano MD Work Phone: [facility] 04-26-2025 07:08-0400 SaO2% (BldA) [Mass fraction] 92 % Dr. Vicenta Serrano MD Work Phone: [facility] 04-26-2025 07:08-0400 Systolic blood pressure 126 mm[Hg] Dr. Vicenta Serrano MD Work Phone: [facility] 03-11-2023 09:59-0400 Body height 182.[address] Stu Richardson Work Phone: [facility] 03-11-2023 09:59-0400 Body mass index (BMI) [Ratio] 43.8 kg/m2 Dr. Stu Richardson Work Phone: [facility] 03-11-2023 09:59-0400 Body weight 146.[address] Stu Richardson Work Phone: [facility] 03-11-2023 09:59-0400 Diastolic blood pressure 70 mm[Hg] Dr. Stu Richardson Work Phone: [facility] 03-11-2023 09:59-0400 Heart rate 60 /min Dr. Stu Richardson Work Phone: [facility] 03-11-2023 09:59-0400 Respiratory rate 18 /min Dr. Stu Richardson Work Phone: [facility] 03-11-2023 09:59-0400 Systolic blood pressure 119 mm[Hg] Dr. Stu Richardson Work Phone: [facility] 04-07-2017 14:19-0400 BMI (Body Mass Index) 39.08 kg/m2 [facility] Work Phone: 04-07-2017 14:19-0400 BP Diastolic 68 mm[Hg] [facility] Work Phone: 04-07-2017 14:19-0400 BP Systolic 110 mm[Hg] [facility] Work Phone: 04-07-2017 14:19-0400 Height 182.88 cm Stefani Batista [facility] Work Phone: 04-07-2017 14:19-0400 Pulse (Heart Rate) 72 /min [facility] Work Phone: 04-07-2017 14:19-0400 Respiratory Rate 20 /min [facility] Work Phone: 04-07-2017 14:19-0400 Weight 130.72 kg [facility] Work Phone: 11-18-2016 10:53-0400 BMI (Body Mass Index) 39.46 kg/m2 Jenni Ortiz RN [facility] Work Phone: 11-18-2016 10:53-0400 BP Diastolic 60 mm[Hg] Jenni Ortiz RN [facility] Work Phone: 11-18-2016 10:53-0400 BP Systolic 98 mm[Hg] Jenni Ortiz RN [facility] Work Phone: 11-18-2016 10:53-0400 Height 182.88 cm Jenni Ortiz RN [facility] Work Phone: 11-18-2016 10:53-0400 Pulse (Heart Rate) 52 /min Jenni Ortiz RN [facility] Work Phone: 11-18-2016 10:53-0400 Respiratory Rate 14 /min Jenni Ortiz RN [facility] Work Phone: 11-18-2016 10:53-0400 Weight 132 kg Jenni Ortiz RN [facility] Work Phone: 08-30-2016 13:33-0500 Body Temperature 97.3 [degF] Jenni Ortiz RN [facility] Work Phone: 08-30-2016 13:33-0500 Body Temperature 97.34 [degF] Jenni Ortiz RN [facility] Work Phone: 08-30-2016 13:33-0500 BSA (Body Surface Area) 2.51 m2 Jenni Ortiz RN [facility] Work Phone: 08-30-2016 13:33-0500 Height 182.88 cm eJnni Ortiz RN [facility] Work Phone: 08-30-2016 13:33-0500 Pulse Oximetry 97 % Jenni Ortiz RN [facility] Work Phone: 08-30-2016 13:33-0500 Weight 133.18 kg Jenni Ortiz RN [facility] Work Phone: Encounters Encounter Date Encounter Type Care Provider Facility Start: 04-26-2025 End: 04-26-2025 Patient encounter procedure Venkata Murcia PA -[facility] Work Phone: Start: 04-26-2025 End: 04-26-[address] Vicenta Serrano MD Work Phone: -[facility] Start: 04-19-2025 End: 04-19-[address] Vicenta Serrano MD Work Phone: -Laboratory [facility] Start: 04-19-2025 End: 04-19-[address] Vicenta Serrano MD -Laboratory [facility]han[facility] Start: 04-19-2025 End: 04-19-2025 ambulatory [facility] Start: 03-08-2025 End: 03-08-[address] Vicenta Serrano MD Work Phone: -Laboratory Elizabet Lakhan[facility] Start: 03-08-2025 End: 03-08-[address] Vicenta Serrano MD -Laboratory [facility] Start: 03-08-2025 End: 03-08-2025 ambulatory [facility] Start: 07-18-2024 Encounter for genera l adult medical examination without abnormal findings Vicenta Serr[facility] Start: 06-22-2024 End: 06-22-2024 ambulatory [facility] Start: 03-18-2023 Non-patient / Non-visit Dr. Humberto Richardson Work Phone: [facility] Work Phone: Start: 03-18-2023 Non-patient / Non-visit Dr. Humberto Richardson Work Phone: [facility] Start: 03-18-2023 End: 03-18-[address] Stu Richardson Work Phone: [facility] Work Phone: Start: 03-18-2023 End: 03-18-[address] [facility] Start: 03-11-2023 End: 03-11-[address] Stu Richardson Work Phone: [facility] Work Phone: Start: 03-11-2023 End: 03-11-[address] Stu Richardson Work Phone: [facility] Work Phone: Start: 03-11-2023 End: 03-11-[address] Stu Richardson Work Phone: [facility] Work Phone: Start: 07-02-2022 End: 07-02-2022 ambulatory [facility] Work Phone: Start: 07-02-2022 End: 07-02-2022 Patient encounter [facility] Start: 07-31-2020 End: 07-31-2020 Patient encounter procedure External Provider [facility] Start: 07-31-2020 Results Only External Provider Exter [facility] Procedures Date Procedure Procedure Detail Performing Clinician Start: 04-19-2025 Urine microalbumin/c reatinine ratio measurement Dr. Vicenta Serrano MD Work Phone: Start: 03-08-[address] Moon Serrano MD Work Phone: Start: 03-08-[address] Nahum Serrano MD Work Phone: Start: 07-31-2020 EXTERNAL LAB External P koder Start: 04-07-2017 End: 04-07-2017 LOLI Burgess MD Start: 04-07-2017 End: 04-07-2017 Follow Up Appt 6 months Jess Maya Start: 11-18-2016 End: 11-18-2016 Dietary management education, guidance, and counseling Jenni Ortiz RN Start: 11-18-2016 End: 04-07-2017 LOLI Burgess MD Start: 11-18-2016 End: 04-07-2017 Follow Up Appt 4 months Jess Maya Start: 09-01-2016 End: 09-07-2016 Orville Burgess MD Start: 08-17-2016 End: 08-17-2016 *BMP Robson Burgess MD Start: 08-17-2016 End: 08-17-2016 LOLI Burgess MD Start: 08-17-2016 End: 08-17-2016 Follow Up Appt 3 months Jess Maya Start: 06-28-2016 End: 08-25-2016 BWA Sera Burks VENEER PRODUCTION MACHINE OPERATOR Work Phone: Start: 06-28-2016 End: 08-25-2016 Follow Up Appt 1 month Sera crisostomo CURTAIN STRETCHER ASSEMBLER Work Phone: Start: 06-28-2016 End: 08-25-2016 Retitration with follow up (patient on CPAP currently) Sera Clayton CNP Work Phone: Start: 06-14-2016 End: 06-15-2016 Referral to early morning babysitter Robson Burgess MD Start: 05-19-2016 End: 05-19-2016 CHARITY FUNDRAISERHelen Burgess MD Start: 05-19-2016 End: 05-19-2016 Follow Up Appt 3 months Jess Maya Plan of Treatment Date Care Activity Detail Author Start: 03-08-2025 Borrelia burgdorferi blot test [facility] Start: 03-18-2023 Echo tthrc r-t 2d w/wom-mode compl spec&colr d TTE W/DOPPLER COMPLETE [facility] Start: 04-15-2020 Influenza vaccination INFLUENZA (#1) [facility] Start: 2017 PROSTATE CANCER SCREENING DISCUSSION PROSTATE CANCER SCREENING DISCUSSION [facility] Start: 10-04-2017 End: 10-04-2017 Appointment Appointment [facility] Work Phone: Start: 04-07-2017 End: 04-07-2017 Appointment Appointment [facility] Work Phone: Start: 04-07-2017 End: 04-07-2017 CHARITY FUNDRAISER CHARITY FUNDRAISER [facility] Work Phone: Start: 04-07-2017 End: 04-07-2017 Follow Up Appt 6 months Follow Up Appt 6 months [facility] Work Phone: Start: 03-24-2017 End: 03-24-2017 Appointment Appointment [facility] Work Phone: Start: 11-18-2016 End: 04-07-2017 CHARITY FUNDRAISER CHARITY FUNDRAISER [facility] Work Phone: Start: 11-18-2016 End: 04-07-2017 Follow Up Appt 4 months Follow Up Appt 4 months [facility] Work Phone: Start: 08-30-2016 End: 08-30-2016 Follow Up Appt 1 year Follow Up Appt 1 year [facility] Work Phone: Start: 08-17-2016 End: 08-17-2016 *BMP *BMP [facility] Work Phone: Start: 08-17-2016 End: 08-17-2016 CHARITY FUNDRAISER CHARITY FUNDRAISER [facility] Work Phone: Start: 08-17-2016 End: 08-17-2016 Echocardiography Echocardiogram (complete) [facility] Work Phone: Start: 08-17-2016 End: 08-17-2016 Follow Up Appt 3 months Follow Up Appt 3 months [facility] Work Phone: Start: 06-28-2016 End: 08-25-2016 BWA BWA [facility] Work Phone: Start: 06-28-2016 End: 08-25-2016 Follow Up Appt 1 month Follow Up Appt 1 month [facility] Work Phone: Start: 06-28-2016 End: 08-25-2016 Retitration with follow up (patient on CPAP currently) Retitration with follow up (patient on CPAP currently) [facility] Work Phone: Start: 06-14-2016 End: 08-02-2016 [facility] [address] [place], [address] [facility] Work Phone: Start: 05-19-2016 End: 05-19-2016 CHARITY FUNDRAISER CHARITY FUNDRAISER [facility] Work Phone: Start: 05-19-2016 End: 05-19-2016 Follow Up Appt 3 months Follow Up Appt 3 months [facility] Work Phone: Start: 2012 Screening for malignant neoplasm of colon [facility] Start: 2012 SHINGRIX VACCINE (1 of 2) SHINGRIX VACCINE (1 of 2) [facility] Start: 11-12-2010 LIPID SCREEN LIPID SCREEN [facility] Start: 11-12-2008 DIABETES SCREEN DIABETES SCREEN [facility] Start: 1981 Urine microalbumin profile DTAP,TDAP,TD (1 - Tdap) [facility] Start: 1980 HEPATITIS C SCREENING HEPATITIS C SCREENING [facility] Start: 1980 HIV SCREENING HIV SCREENING [facility] Laboratory data interpretation [facility] Immunizations Immunization Date Immunization Notes Care Provider Yonatan cadet 07-14-2020 influenza, injectabl e, quadrivalent, preservative free Dr. Vicenta Serrano MD Work Phone: [facility] 07-14-2020 influenza, seasonal, injectable [facility] Payers Date Payer Category Payer Self-pay [id number] 2024 Unknown [id number] 2016 Unknown [id number] Unknown [facility] PLAN [id number] Unknown [id number] Unknown [id number] Unknown [id number] Unknown [id number] Social History Date Type Detail Facility Start: 05-16-2006 Tobacco smoking status NHIS Current every day smoker [facility] Start: 05-16-2006 Alcohol intake Current drinke r of alcohol (finding) [facility] Start: 1960 Sex Assigned At Not on file [facility] Start: 02-26-2022 End: 03-11-2023 Tobacco smoking status WVIS Unknown if ever smoked [facility] Start: 07-12-2020 None [facility] Start: 07-12-2020 Spouse/ Signif icant Other [facility] Start: 07-12-2020 Non-smoker [facility] Start: 1960 Sex Assigned At Male [facility] Start: 03-11-2023 Tobacco smoking status NHIS Ex-smoker (finding) [facility] Evaluation note 04-26-2025 Note Date & Type Note Facility 04-26-2025 Evaluation note Diagnosis Onset Date Resolution Nonischemic cardiomyopathy chronic April 26, 2025 10:16am [facility] Work Phone: Evaluation note Note Date & Type Note Facility Evaluation note No assessment information availa ble [facility] Work Phone: Evaluation note Note Date & Type Note Facility Evaluation note Diagnosis Onset Date Essential hypertension chron ic Nonischemic cardiomyopathy c hronic [facility] Work Phone: Evaluation note Note Date & Type Note Facility Evaluation note Diagnosis Onset Date Resolution Chronic systolic (congestive) heart failure chronic April 26, 2025 10:16am Essential hypertension chronic Se ptember 2024 10:16am Nonischemic cardiomyopathy chronic April 26, 2025 10:16am Obstructive sleep apnea chronic S eptember 2024 10:16am [facility] Work Phone: Reason for referral (narrative) Note Date & Type Note Facility Reason for referral (narrative) No reason for referral information available [facility] Work Phone: Family History No Family History Records Found Relationship Condition Age at Onset Recorded Date/T jayden father Cardiac disease Unknown Hypertension Unknown Hemorrhagic disorder Unknown mother Malignant neoplasm Unknown Advance Directives No Advanced Directives Records Found Advance Directive Response Recorded Date/ Time Advance Directives Yes April 8:34pm Living Will Yes July 12 3:37pm Power of Clammer Yes July 12, 2020 3:37pm Advance Directive Response Recorded Date/ Time Advance Directives Yes April 9:34pm Living Will Yes July 12 020 4:37pm Power of Clammer Yes July 12, 2020 4:37pm Advance Directive Response Recorded Date/ Time Advance Directives Yes April 9:34pm Advance Directive Response Recorded Date/ Time Living Will Yes July 12 4:37pm Do you have a Healthcare Power of Clammer? Yes July 12, 2020 4:37pm Advance Directives Yes April 9:34pm Chief Complaint and Reason for Visit Chief Complaint 1 Y FU Reason for Visit Essential hypertensi on Nonischemic cardiomyopathy Chief Complaint 1 Y FU Other cardiomyopathies Amb Documentation Reason for Visit Essential hypertensi on Nonischemic cardiomyopathy Chief Complaint Admit Date LAB April 19, 2025 9:06am 1 Y FU April 26, 2025 10:16am Reason for Visit Admit Date Chronic systolic (congestive) heart fail ure April 26, 2025 10:16am Essential hypertension April 26, 025 10:16am Nonischemic cardiomyopathy April 10:16am Obstructive sleep apnea April 26, 2025 10:16am Reason for Visit Admit Date Nonischemic cardiomyopathy April 10:16am Summary Purpose Additional Source Comments Source Comments (unrecognize d section and content) In the event this informatio n is protected by the Federal Confidentiality of Alcohol and Drug Abuse Patient Records regulations: The Federal rules restrict any use of the information to criminally investigate or prosecute any alcohol or drug abuse patient.[facility] Goals (unrecognized section and content) Goals may be documented in a n alternate sectionGoals may be documented in an alternate sectionGoals may be documented in an alternate sectionGoals may be documented in an alternate sectionGoals may be documented in an alternate sectionGoals may be documented in an alternate section Care Teams (unrecognized sec tion and content) Team Status: Active Member Role Status Dates Dr. Stu Richardson MD Family Provider Active Dr. Vicenta Serrano MD Primary Care Provider Active Team Status: Inactive Member Role Status Dates Dr. Stu Richardson MD Referring Provider Active Dr. Robson Burgess MD Attending Provider Active Dr. Vicenta Serrano MD Primary Care Provider Active Team Status: Inactive Member Role Status Dates Dr. Vicenta Serrano MD Primary Care Provider Active Dr. Robson Burgess MD Attending Provider, Referring Pro vider Active Team Status: Active Member Role Status Dates Dr. Vicenta Serrano MD Primary Care Provider Active Dr. Robson Burgess MD Attending Provider Active Team Status: Active Member Role Status Dates Dr. Vicenta Serrano MD Primary Care Provider Active Chris Neumann NP, VENEER PRODUCTION MACHINE OPERATOR-C Attending Provider Active Team Status: Active Member Role/Relationship Status Dates Dr. Stu Richardson MD Family Provider Active Dr. Vicenta Serrano MD Primary Care Provider Active Team Status: Inactive Member Role/Relationship Status Dates Dr. Vicenta Serrano MD Primary Care Provider Active Start: March 08, 2025 End: March 08, 2025 Dr. Vicenta Serrano MD Attending Provider Active Start: March 08, 2025 End: March 08, 2025 Team Status: Active Member Role/Relationship Status Dates Dr. Vicenta Serrano MD Primary Care Provider Active Team Status: Active Member Role/Relationship Status Dates Dr. Vicenta Serrano MD Primary Care Provider Active Start: April 19, 2025 Dr. Vicenta Serrano MD Attending Provider Active Start: April 19, 2025 Team Status: Inactive Member Role/Relationship Status Dates Dr. Vicenta Serrano MD Primary Care Provider Active Start: April 26, 2025 End: April 26, 2025 Dr. Vicenta Serrano MD Referring Provider Active Start: April 26, 2025 End: April 26, 2025 GURPREET Noble Attending Provider Active St art: April 26, 2025 End: April 26, 2025 Team Status: Inactive Member Role/Relationship Status Dates Dr. Vicenta Serrano MD Primary Care Provider Active Start: April 19, 2025 End: April 19, 2025 Dr. Vicenta Serrano MD Attending Provider Active Start: April 19, 2025 End: April 19, 2025 (unrecognized sect ion and content) No Status Records Found INFORMATION SOURCE (unrecogn ized section and content) DATE CREATED AUTHOR 04/28/2025 [facility] FOR RECORDS PERTAINING TO PATIENTS WHO ARE OR HAVE BEEN ENROLLED IN A CHEMICAL DEPENDENCY/SUBSTANCEABUSE PROGRAM, SOME INFORMATION MAY BE OMITTED. This clinical summary was aggregated from multiple sources. Caution should be exercised in using it in the provision of clinical care. This summary normalizes information from multiple sources, and as a consequence, information in this document may materially change the coding, format and clinical context of patient data. In addition, data may be omitted in some cases. CLINICAL DECISIONS SHOULD BE BASED ON THE PRIMARY CLINICAL RECORDS. [facility] [employer] [facility]. provides no warranty or guarantee of the accuracy or completeness of information in this document.
== END | disposition home or self-care (01) ==
LOC: LAB 12:16
PROVIDERS: PCP Family Medicine; Referring Provider Family Medicine; Visit Provider Family Medicine
DX: M25.552 Pain in left hip (principal)
CPT/HCPCS: 73502